=== PATIENT | male | born 1955 | race Caucasian/White ===

== ENCOUNTER 2017-05-18 11:25 | Inpatient (IN) | payer MEDICARE, BC, MEDICAID ==
--- NOTE | 2017-05-18 12:12 | ED Physician Chart ---
ED Chief Complaint/HPI - Patient Information Date Seen:: 05/18/17 Time Seen:: 12:00 Chief Complaint:: disruptive and verbally abusive behavior History of Present Illness:: [facility] for disruptive and verbally abusive behavior. Allergies:: Allergies Allergy/AdvReac Type Severity Reaction Status Date / Time penicillinase Allergy Verified 05/18/17 11:53 Penicillins Allergy Verified 05/18/17 11:53 Vitals:: Vital Signs - 8 hr 05/18/17 11:53 Temp 98.2 F HR 77 RR 16 BP 136/53 O2 Sat % 98 Historian:: Patient Review:: Transfer documents Reviewed ED Review of Systems - Review of Systems General/Constitutional: No fever, No chills Skin: No skin lesions Head: No headache Eyes: No loss of vision ENT: No earache Neck: No neck pain Cardio Vascular: No chest pain, No palpitations Pulmonary: No SOB GI: No nausea, No vomiting G/U: No dysuria, No hematuria Endocrine: No polyuria, No polydipsia Psychiatric: Prior psych history Hematopoietic: No bruising Allergic/Immuno: No urticaria Neurological: No syncope ED Past Medical History - Past Medical History Past Medical History: HTN, Asthma/COPD, Dyslipidemia, Other (schizoaffective disorder; hypothyroidism ) Family History: None Social History: Smoker Surgical History: other (tonsillectomy) Psychiatricy History: Other (schizoaffective disorder) Medication: Reviewed Family Medical History - Family Member Mother History Unknown: Yes ED Labs/Radiology/EKG Results - Lab Results Results: Laboratory Results - last 24 hr 05/18/17 05/18/17 12:00 12:00 WBC 4.3 L D RBC 4.03 L Hgb 12.9 Hct 37.9 L D MCV 94.2 MCH 31.9 H MCHC Differential 33.9 RDW 12.9 Plt Count 175 D MPV 7.5 Neutrophils % 62.4 Lymphocytes % 28.0 Monocytes % 7.9 Eosinophils % 1.1 Basophils % 0.6 Sodium 133 L Potassium 3.6 Chloride 98 Carbon Dioxide 32.0 H Anion Gap 6.6 L BUN 18 Creatinine 1.2 Est GFR ( Amer) > 60.0 Est GFR (Non-Af Amer) > 60.0 BUN/Creatinine Ratio 15.0 Glucose 76 Calcium 8.8 Total Bilirubin 0.3 AST 63 H ALT 35 Alkaline Phosphatase 48 Total Protein 6.9 Albumin 4.1 L Globulin 2.8 Albumin/Globulin Ratio 1.5 Triglycerides 190 H Cholesterol 207 H LDL Cholesterol Direct 137 HDL Cholesterol 53 Salicylates < 25.0 L Acetaminophen < 10.0 L Ethyl Alcohol < 10 - EKG Interpretations Rate & Rhythm: normal sinus rhythm with a rate of 63 [place]: normal ED Septic Shock - . Is Septic Shock (SBP<90, OR Lactate>4 mmol\L) present?: No - <6hrs of presentation: Vital Signs: Vital Signs - 8 hr 05/18/17 11:53 Temp 98.2 F HR 77 RR 16 BP 136/53 O2 Sat % 98 ED Reassessment (Disposition) - Reassessment Reassessment Condition:: Improved - Diagnosis Diagnosis:: Schizoaffective disorder with abusive behavior; leukopenia - Patient Disposition Admitted to:: [facility] Admitting Medical Physician:: Nino Ng Admitting Psych Physician:: Markus Rivera Condition at Disposition:: Stable ED Discharge Plan - Patient Disposition Instructions: Psychosis
[2017-05-18 12:18] LABS: % BASOPHILS 0.6 % (0.0-2.0); % EOSINOPHILS 1.1 % (0.0-5.0); % MONOCYTES 7.9 % (2.0-10.0); % NEUTROPHILS 62.4 % (40.0-80.0); HEMOGLOBIN 12.9 gm/dL (12-16); LYMPHOCYTE ABSOLUTE 1.2 Th/cmm (1.5-3.0); MEAN CELL VOLUME 94.2 fl (80-99); MEAN CORPUSCULAR HEMOGLOBIN 31.9 pg (26.0-30.0); MEAN CORPUSCULAR HGB CONC 33.9 pg (28.0-36.0); MEAN PLATELET VOLUME 7.5 fl; MONOCYTE ABSOLUTE 0.3 Th/cmm (0.3-1.0); NEUTROPHILE ABSOLUTE 2.8 Th/cmm (1.8-8.0); RED BLOOD COUNT 4.03 Mil/cmm (4.30-5.70); RED CELL DISTRIBUTION WIDTH 12.9 % (11.5-20.0)
[2017-05-18 12:19] LABS: HEMATOCRIT 37.9 % (41.0-60); PLATELET COUNT 175 Th/cmm (150-400); WHITE BLOOD COUNT 4.3 Th/cmm (4.8-10.8)
[2017-05-18 12:46] LABS: ACETAMINOPHEN < 10.0 ug/mL (10.0-30.0); ALB/GLOB RATIO 1.5 (1.0-1.8); ALBUMIN 4.1 gm/dL (4.2-5.5); ALKALINE PHOSPHATASE 48 U/L (34-104); ANION GAP 6.6 (7.0-16.0); BILIRUBIN,TOTAL 0.3 mg/dL (0.3-1.0); BUN - UREA NITROGEN 18 mg/dL (7-25); CALCIUM SERUM 8.8 mg/dL (8.6-10.3); CHLORIDE 98 mEq/L (98-107); CHOLESTEROL 207 mg/dL (<200); CREATININE - SERUM 1.2 mg/dL (0.7-1.3); GFR AFRICAN-AMERICAN > 60.0 ml/min (>90); GFR NON AFRICAN-AMERICAN > 60.0 ml/min; GLUCOSE 76 mg/dL (70-105); HDL -HIGH DENSITY LIPOPROTEIN 53 mg/dL (23-92); POTASSIUM SERUM 3.6 mEq/L (3.5-5.1); SALICYLATES (ASPIRIN) < 25.0 mg/L (30.0-100.0); SGOT 63 U/L (13-39); SGPT/ALT 35 U/L (7-52); SODIUM SERUM 133 mEq/L (136-145); TOTAL PROTEIN,SERUM 6.9 gm/dL (6.0-8.3); TRIGLYCERIDES 190 mg/dL (<150)
[2017-05-18 14:15] LABS: A1C % 6.2 % (4.0-6.0)
[2017-05-18 14:54] VITALS: BP 142/78
[2017-05-18] MEDS ORDERED: Magnesium Hydroxide (MOM) 30 mL UDC PO PRN (14:54)
[2017-05-19] MEDS ORDERED: LEVOTHYROXINE 200 MCG PO SCH (07:30)
[2017-05-19] MEDS: Maalox 30 mL Cup PO PRN (08:38)
[2017-05-19] MEDS: Benztropine 1 MG TAB PO SCH (08:39)
[2017-05-19] MEDS: Levothyroxine 0.1 Mg Tab PO SCH (08:39)
[2017-05-19] MEDS: Multivitamin Tab PO SCH (08:41)
--- NOTE | 2017-05-19 12:18 | History and Physical ---
History of Present Illness - HPI Chief Complaint: agressive behavior HPI: This is a 61 year old male who is a resident of [facility] admitted to the [facility] unit due to agressive and abusive behavior towards nursing staff. Vital Signs: Last Vital Signs Temp 98.4 F 05/18/17 16:36 Pulse 70 05/18/17 16:36 Resp 18 05/18/17 16:36 BP 123/72 05/18/17 16:36 Pulse Ox 99 05/18/17 16:36 Past Medical History Other History: HTN, Asthma/COPD, Dyslipidemia, schizoaffective disorder; hypothyroidism ) - Past Surgical History Past Surgical History: Tonsillectomy Family Medical History - Family Member Mother History Unknown: Yes Social History Smoke: <1 pack per day Alcohol: None Drugs: None Lives: Custodial - Medications Home Medications: Home Medication Medication Instructions Recorded Type Lorazepam [Ativan] 1 mg PO Q6H PRN #0 tab 10/01/14 Rx QUEtiapine Fumarate [SEROquel] 400 mg PO HS #0 tab 10/01/14 Rx Benztropine [Cogentin*] 1 mg PO DAILY 05/18/17 History Docusate Sodium [Colace] 200 mg PO BID 05/18/17 History Levothyroxine [Synthroid] 200 mcg PO QDAC 05/18/17 History Mylanta 30 ml PO Q4H PRN 05/18/17 History Naproxen [Naprosyn] 500 mg PO BID PRN 05/18/17 History QUEtiapine Fumarate [SEROquel] 100 mg PO DAILY 05/18/17 History clonazePAM [klonoPIN*] 1 mg PO BID 05/18/17 History - Allergies Allergies/Adverse Reactions: Allergies Allergy/AdvReac Type Severity Reaction Status Date / Time penicillinase Allergy Verified 05/18/17 11:53 Penicillins Allergy Verified 05/18/17 11:53 Review of Systems - Review of Systems Constitutional: Report: No Significant Eyes: Report: No Significant ENT: Report: No Significant Respiratory: Report: No Significant Cardiovascular: Report: No Significant Gastrointestinal: Report: No Significant Genitourinary: Report: No Significant Musculoskeletal: Report: No Significant Skin: Report: No Significant Neurological: Report: No Significant Physical Exam - Physical Exam HEENT: Report: Ears Nose Throat within normal limits Neck: Report: Within normal limits Cardiovascular Systems: Report: +s1/s2 noted Respiratory: Report: Breath Sounds are within normal limits Abdomen: Report: Non-tender to palpation Back: Report: Inspection of back is within normal limits. Extremities: Report: Non-tender to palpation. Neuro/Psych: Report: Mood affect is within normal limits - Assessment Assessment: Current Active Problems Problem Status Onset DISRUPTIVE AND ABUSIVE BEHAVIOUR Acute HTN Asthma/COPD Dyslipidemia schizoaffective disorder hypothyroidism S - Plan Plan: safety precautions continue current orders
--- NOTE | 2017-05-19 21:27 | Psychosocial Evaluation ---
DATE OF SERVICE: 05/18/2017 IDENTIFYING DATA: The patient is a 61-year-old male, resident of [facility]. Information obtained by directly interviewing the patient as well as reviewing the admission papers, and they are reliable for this inpatient hospitalization. The patient is admitted here on a voluntary basis in view of his acute agitation and disruptive behavior. CHIEF COMPLAINT: "I need to have my medications changed." HISTORY OF PRESENT ILLNESS: This is one of multiple psychiatric hospitalizations for this patient, who has been diagnosed to have schizoaffective disorder and is being followed up by Dr. Rivera on an outpatient basis. During the hospitalization, the patient has been getting easily agitated and is stating that he has been taking too much of medications that needs to be changed. The patient is getting easily upset. The patient is fixated on the Seroquel. PAST PSYCHIATRIC HISTORY: Has been hospitalized on multiple occasions. MEDICAL HISTORY: Physical examination is requested by Dr. Ng. SOCIAL HISTORY: The patient is a resident of the [facility]. SUBSTANCE ABUSE HISTORY: None. PHYSICAL OR SEXUAL ABUSE HISTORY: None. LEGAL PROBLEMS AT THIS TIME: None. MENTAL STATUS EXAMINATION: The patient is a 61-year-old, looking his stated age, cooperative. Eye contact is fair. Mood is noted to be irritable. Affect is constricted. The patient's insight and judgment are very much impaired. Impulse control seems to be limited. The patient is very paranoid and fixated on the medications. The patient is alert and awake. The patient's attention span and concentration are noted to be fair. The patient has paranoid delusions. DIAGNOSTIC IMPRESSION: 1. Schizoaffective disorder, psychotic. AXIS II: None. AXIS III: As per Dr. Ng. IMMEDIATE TREATMENT PLAN: The patient is going to be observed on inpatient unit, provided with supportive psychotherapy. The patient is going to be closely monitored. The patient is going to be discontinued off the Ativan because the patient is already on Klonopin. The patient is going to be continued on the Seroquel 100 mg in the morning and 400 mg at bedtime, and the patient is stating that the 400 mg of the Seroquel is too much for him, and he would like to bring it down to 300. The patient is stating that he is sleeping most of the time, and he would rather take a lower dose and function. The patient is also reporting that he is not having any side effects from the medication and he would rather discontinue the Cogentin. Plan to continue the patient with the current medication changes and follow the patient up. JOB# [id number]
[2017-05-20] MEDS: Benztropine 1 MG TAB PO SCH (08:02)
[2017-05-20] MEDS: Levothyroxine 0.1 Mg Tab PO SCH (08:02)
[2017-05-20] MEDS: Multivitamin Tab PO SCH (08:52)
[2017-05-20] MEDS: Maalox 30 mL Cup PO PRN (13:21)
--- NOTE | 2017-05-20 15:06 | Internal Medicine Prog Note ---
Internal Medicine Subjective - Subjective Patient seen and examined:: with staff, chart reviewed Patient is:: awake, verbal, interactive, ambulating, agitated Per staff patient has:: no adverse event, no episodes of fall, poor appetite, combative, noncompliant, tolerating meds, refusing care Internal Medicine Objective - Results Result Diagrams: 05/18/17 12:00 05/18/17 12:00 Recent Labs: Laboratory Last Values WBC 4.3 Th/cmm (4.8-10.8) L D 05/18/17 12:00 RBC 4.03 Mil/cmm (4.30-5.70) L 05/18/17 12:00 Hgb 12.9 gm/dL (12-16) 05/18/17 12:00 Hct 37.9 % (41.0-60) L D 05/18/17 12:00 MCV 94.2 fl (80-99) 05/18/17 12:00 MCH 31.9 pg (26.0-30.0) H 05/18/17 12:00 MCHC Differential 33.9 pg (28.0-36.0) 05/18/17 12:00 RDW 12.9 % (11.5-20.0) 05/18/17 12:00 Plt Count 175 Th/cmm (150-400) D 05/18/17 12:00 MPV 7.5 fl 05/18/17 12:00 Neutrophils % 62.4 % (40.0-80.0) 05/18/17 12:00 Lymphocytes % 28.0 % (20.0-50.0) 05/18/17 12:00 Monocytes % 7.9 % (2.0-10.0) 05/18/17 12:00 Eosinophils % 1.1 % (0.0-5.0) 05/18/17 12:00 Basophils % 0.6 % (0.0-2.0) 05/18/17 12:00 Sodium 133 mEq/L (136-145) L 05/18/17 12:00 Potassium 3.6 mEq/L (3.5-5.1) 05/18/17 12:00 Chloride 98 mEq/L (98-107) 05/18/17 12:00 Carbon Dioxide 32.0 mEq/L (21.0-31.0) H 05/18/17 12:00 Anion Gap 6.6 (7.0-16.0) L 05/18/17 12:00 BUN 18 mg/dL (7-25) 05/18/17 12:00 Creatinine 1.2 mg/dL (0.7-1.3) 05/18/17 12:00 Est GFR ( Amer) > 60.0 ml/min (>90) 05/18/17 12:00 Est GFR (Non-Af Amer) > 60.0 ml/min 05/18/17 12:00 BUN/Creatinine Ratio 15.0 05/18/17 12:00 Glucose 76 mg/dL (70-105) 05/18/17 12:00 Hemoglobin A1c % 6.2 % (4.0-6.0) H 05/18/17 12:00 Calcium 8.8 mg/dL (8.6-10.3) 05/18/17 12:00 Total Bilirubin 0.3 mg/dL (0.3-1.0) 05/18/17 12:00 AST 63 U/L (13-39) H 05/18/17 12:00 ALT 35 U/L (7-52) 05/18/17 12:00 Alkaline Phosphatase 48 U/L (34-104) 05/18/17 12:00 Total Protein 6.9 gm/dL (6.0-8.3) 05/18/17 12:00 Albumin 4.1 gm/dL (4.2-5.5) L 05/18/17 12:00 Globulin 2.8 gm/dL 05/18/17 12:00 Albumin/Globulin Ratio 1.5 (1.0-1.8) 05/18/17 12:00 Triglycerides 190 mg/dL (<150) H 05/18/17 12:00 Cholesterol 207 mg/dL (<200) H 05/18/17 12:00 LDL Cholesterol Direct 137 mg/dL (75-193) 05/18/17 12:00 HDL Cholesterol 53 mg/dL (23-92) 05/18/17 12:00 TSH > 100.00 uIU/ml (0.34-5.60) H 05/18/17 12:00 Salicylates < 25.0 mg/L (30.0-100.0) L 05/18/17 12:00 Acetaminophen < 10.0 ug/mL (10.0-30.0) L 05/18/17 12:00 Ethyl Alcohol < 10 mg/dL (0-10) 05/18/17 12:00 RPR NONREACTIVE (NONREACTIVE) 05/18/17 12:00 - Physical Exam Vitals and I&O: Vital Signs Temp 98.2 F 05/20/17 06:16 Pulse 67 05/20/17 06:16 Resp 20 05/20/17 06:16 BP 116/63 05/20/17 06:16 Pulse Ox 98 05/20/17 06:16 Intake & Output 05/19/17 05/20/17 05/20/17 18:59 06:59 18:59 Intake Total 1200 720 Balance 1200 720 Intake: Oral 1200 720 Other: # Voids 1 # Bowel Movements 1 Active Medications: Current Medications Acetaminophen (Tylenol) 650 mg PO Q4HR PRN PRN Reason: Mild Pain / Temp above 100 Stop: 07/17/17 14:53 Al Hydrox/Mg Hydrox/Simethicone (Maalox) 30 ml PO Q4HR PRN PRN Reason: GI DISTRESS Stop: 07/17/17 14:53 Last Admin: 05/20/17 13:21 Dose: 30 ml Benztropine Mesylate (Cogentin) 1 mg PO DAILY [facility] Stop: 07/18/17 08:59 Last Admin: 05/20/17 08:02 Dose: Not Given Clonazepam (Klonopin) 1 mg PO BID STEFFANIE PRN Reason: Protocol Stop: 07/17/17 16:59 Last Admin: 05/20/17 08:51 Dose: 1 mg Docusate Sodium (Colace) 250 mg PO BID [facility] Stop: 07/17/17 16:59 Last Admin: 05/20/17 08:51 Dose: 250 mg Levothyroxine Sodium (Synthroid) 0.2 mg PO DAILY [facility] Stop: 07/18/17 08:59 Last Admin: 05/20/17 08:02 Dose: Not Given Magnesium Hydroxide (Milk Of Magnesia) 30 ml PO HS PRN PRN Reason: Constipation Multivitamins/Vitamin C (Theragran) 1 tab PO DAILY [facility] Stop: 07/18/17 08:59 Last Admin: 05/20/17 08:52 Dose: Not Given Naproxen (Naprosyn) 500 mg PO BID PRN PRN Reason: PAIN Stop: 07/17/17 14:57 Quetiapine Fumarate (Seroquel) 100 mg PO DAILY STEFFANIE PRN Reason: Protocol Stop: 07/18/17 08:59 Last Admin: 05/20/17 08:51 Dose: 100 mg Quetiapine Fumarate (Seroquel) 300 mg PO HS STEFFANIE PRN Reason: Protocol Stop: 07/18/17 18:59 Last Admin: 05/19/17 19:36 Dose: Not Given Zolpidem Tartrate (Ambien) 5 mg PO HS PRN PRN Reason: Insomnia Stop: 07/17/17 14:53 Last Admin: 05/19/17 20:22 Dose: 5 mg General: congested HEENT: NC/AT, PERRLA, EOMI Neck: Supple, No JVD, No LAD Lungs: CTAB Cardiovascular: RRR, Normal S1, Normal S2 Abdomen: soft, globular, non-distended Extremities: edema - Procedures Procedures: Procedures Procedure Code Date EMERGENCY DEPT VISIT 33406 06/27/11 INDIVID PSYCHOTHERAP NEC 94.39 10/26/05 OTHER GROUP THERAPY 94.44 09/24/14 RECREATIONAL THERAPY 93.81 03/06/12 Internal Medicine Assmt/Plan - Assessment Assessment: HTN Asthma/COPD Dyslipidemia schizoaffective disorder hypothyroidism S - Plan Plan: safety precautions continue current orders - Plan Plan: labs noed tsh noted bayron vargas
--- NOTE | 2017-05-20 15:57 | Progress Notes ---
DATE: 05/20/2017 SUBJECTIVE: Staff was spoken to. The patient is interviewed. Mood is noted to be irritable. Affect is constricted. Insight and judgment are to be still impaired. The patient has been fixated on the Seroquel. The patient is stating that the Seroquel is too much. He would like to continue the 100 mg in the morning and he has been fixated on the medication at night time. No side effects to medications are noted. Insight and judgment are to be still impaired. ASSESSMENT: The patient is still psychotic and impulsive. PLAN: To continue the patient with the current medications and followup. JOB# [id number]
[2017-05-21] MEDS: Multivitamin Tab PO SCH (08:51)
[2017-05-21] MEDS: Levothyroxine 0.1 Mg Tab PO SCH (08:51)
--- NOTE | 2017-05-21 15:03 | Internal Medicine Prog Note ---
Internal Medicine Subjective - Subjective Patient seen and examined:: with staff, chart reviewed Patient is:: awake, verbal, interactive, ambulating, agitated Per staff patient has:: no adverse event, no episodes of fall, poor appetite, combative, noncompliant, tolerating meds, refusing care Internal Medicine Objective - Results Result Diagrams: 05/18/17 12:00 05/18/17 12:00 Recent Labs: Laboratory Last Values WBC 4.3 Th/cmm (4.8-10.8) L D 05/18/17 12:00 RBC 4.03 Mil/cmm (4.30-5.70) L 05/18/17 12:00 Hgb 12.9 gm/dL (12-16) 05/18/17 12:00 Hct 37.9 % (41.0-60) L D 05/18/17 12:00 MCV 94.2 fl (80-99) 05/18/17 12:00 MCH 31.9 pg (26.0-30.0) H 05/18/17 12:00 MCHC Differential 33.9 pg (28.0-36.0) 05/18/17 12:00 RDW 12.9 % (11.5-20.0) 05/18/17 12:00 Plt Count 175 Th/cmm (150-400) D 05/18/17 12:00 MPV 7.5 fl 05/18/17 12:00 Neutrophils % 62.4 % (40.0-80.0) 05/18/17 12:00 Lymphocytes % 28.0 % (20.0-50.0) 05/18/17 12:00 Monocytes % 7.9 % (2.0-10.0) 05/18/17 12:00 Eosinophils % 1.1 % (0.0-5.0) 05/18/17 12:00 Basophils % 0.6 % (0.0-2.0) 05/18/17 12:00 Sodium 133 mEq/L (136-145) L 05/18/17 12:00 Potassium 3.6 mEq/L (3.5-5.1) 05/18/17 12:00 Chloride 98 mEq/L (98-107) 05/18/17 12:00 Carbon Dioxide 32.0 mEq/L (21.0-31.0) H 05/18/17 12:00 Anion Gap 6.6 (7.0-16.0) L 05/18/17 12:00 BUN 18 mg/dL (7-25) 05/18/17 12:00 Creatinine 1.2 mg/dL (0.7-1.3) 05/18/17 12:00 Est GFR ( Amer) > 60.0 ml/min (>90) 05/18/17 12:00 Est GFR (Non-Af Amer) > 60.0 ml/min 05/18/17 12:00 BUN/Creatinine Ratio 15.0 05/18/17 12:00 Glucose 76 mg/dL (70-105) 05/18/17 12:00 Hemoglobin A1c % 6.2 % (4.0-6.0) H 05/18/17 12:00 Calcium 8.8 mg/dL (8.6-10.3) 05/18/17 12:00 Total Bilirubin 0.3 mg/dL (0.3-1.0) 05/18/17 12:00 AST 63 U/L (13-39) H 05/18/17 12:00 ALT 35 U/L (7-52) 05/18/17 12:00 Alkaline Phosphatase 48 U/L (34-104) 05/18/17 12:00 Total Protein 6.9 gm/dL (6.0-8.3) 05/18/17 12:00 Albumin 4.1 gm/dL (4.2-5.5) L 05/18/17 12:00 Globulin 2.8 gm/dL 05/18/17 12:00 Albumin/Globulin Ratio 1.5 (1.0-1.8) 05/18/17 12:00 Triglycerides 190 mg/dL (<150) H 05/18/17 12:00 Cholesterol 207 mg/dL (<200) H 05/18/17 12:00 LDL Cholesterol Direct 137 mg/dL (75-193) 05/18/17 12:00 HDL Cholesterol 53 mg/dL (23-92) 05/18/17 12:00 TSH > 100.00 uIU/ml (0.34-5.60) H 05/18/17 12:00 Salicylates < 25.0 mg/L (30.0-100.0) L 05/18/17 12:00 Acetaminophen < 10.0 ug/mL (10.0-30.0) L 05/18/17 12:00 Ethyl Alcohol < 10 mg/dL (0-10) 05/18/17 12:00 RPR NONREACTIVE (NONREACTIVE) 05/18/17 12:00 - Physical Exam Vitals and I&O: Vital Signs Temp 98.6 F 05/20/17 20:00 Pulse 78 05/20/17 20:00 Resp 20 05/20/17 20:00 BP 119/66 05/20/17 20:00 Pulse Ox 78 05/20/17 20:00 Intake & Output 05/20/17 05/21/17 05/21/17 18:59 06:59 18:59 Intake Total 1000 Balance 1000 Intake: Oral 1000 Other: # Voids 13 # Bowel Movements 2 Stool Characteristics Soft Soft Active Medications: Current Medications Acetaminophen (Tylenol) 650 mg PO Q4HR PRN PRN Reason: Mild Pain / Temp above 100 Stop: 07/17/17 14:53 Al Hydrox/Mg Hydrox/Simethicone (Maalox) 30 ml PO Q4HR PRN PRN Reason: GI DISTRESS Stop: 07/17/17 14:53 Last Admin: 05/20/17 13:21 Dose: 30 ml Clonazepam (Klonopin) 1 mg PO BID STEFFANIE PRN Reason: Protocol Stop: 07/17/17 16:59 Last Admin: 05/21/17 08:51 Dose: 1 mg Docusate Sodium (Colace) 250 mg PO BID STEFFANIE Stop: 07/17/17 16:59 Last Admin: 05/21/17 08:51 Dose: 250 mg Levothyroxine Sodium (Synthroid) 0.2 mg PO DAILY STEFFANIE Stop: 07/18/17 08:59 Last Admin: 05/21/17 08:51 Dose: Not Given Magnesium Hydroxide (Milk Of Magnesia) 30 ml PO HS PRN PRN Reason: Constipation Multivitamins/Vitamin C (Theragran) 1 tab PO DAILY STEFFANIE Stop: 07/18/17 08:59 Last Admin: 05/21/17 08:51 Dose: 1 tab Naproxen (Naprosyn) 500 mg PO BID PRN PRN Reason: PAIN Stop: 07/17/17 14:57 Quetiapine Fumarate (Seroquel) 100 mg PO DAILY STEFFANIE PRN Reason: Protocol Stop: 07/18/17 08:59 Last Admin: 05/21/17 08:51 Dose: 100 mg Quetiapine Fumarate (Seroquel) 400 mg PO HS STEFFANIE PRN Reason: Protocol Stop: 07/18/17 18:59 Last Admin: 05/20/17 21:07 Dose: 400 mg Zolpidem Tartrate (Ambien) 5 mg PO HS PRN PRN Reason: Insomnia Stop: 07/17/17 14:53 Last Admin: 05/19/17 20:22 Dose: 5 mg General: congested HEENT: NC/AT, PERRLA, EOMI Neck: Supple, No JVD, No LAD Lungs: CTAB Cardiovascular: RRR, Normal S1, Normal S2 Abdomen: soft, globular, non-distended Extremities: edema - Procedures Procedures: Procedures Procedure Code Date EMERGENCY DEPT VISIT 23249 06/27/11 INDIVID PSYCHOTHERAP NEC 94.39 10/26/05 OTHER GROUP THERAPY 94.44 09/24/14 RECREATIONAL THERAPY 93.81 03/06/12 Internal Medicine Assmt/Plan - Assessment Assessment: HTN Asthma/COPD Dyslipidemia schizoaffective disorder hypothyroidism S - Plan Plan: safety precautions continue current orders - Plan Plan: labs noed tsh noted dw rn
--- NOTE | 2017-05-21 22:49 | Progress Notes ---
DATE: 05/21/2017 SUBJECTIVE: Staff was spoken to. The patient is interviewed. Mood is noted to be irritable. Affect is constricted. The patient is very argumentative. The patient wants both Klonopin and Ativan. The patient's coping skills are noted to be extremely poor. The patient has been complaining of also insomnia. The patient's Seroquel has been changed to 100 mg in the morning and 400 mg at bedtime. ASSESSMENT: The patient is very agitated and is not ready to be discharged to a lower level of care yet. ASSESSMENT: The patient is still psychotic. PLAN: To continue current medications and follow through. JOB# [id number]
[2017-05-22] MEDS: Levothyroxine 0.1 Mg Tab PO SCH ×2 (08:39→10:32)
[2017-05-22] MEDS: Multivitamin Tab PO SCH ×2 (08:40→10:32)
--- NOTE | 2017-05-22 13:23 | Progress Notes ---
DATE: 05/22/2017 SUBJECTIVE: Staff was spoken to. The patient is interviewed. Mood is noted to be irritable. The patient is very argumentative. The patient is stating that even with taking the Seroquel and Klonopin, he was not able to sleep and he woke up groggy. Coping skills are noted to be very poor. The patient has been given the option of taking the Ativan instead of the Klonopin, but the patient is stating that note he wants to have both Ativan and Klonopin. The patient is not able to understand the rationale. ASSESSMENT: The patient is still psychotic and impulsive. PLAN: To continue the patient with the current medications and followup. [facility]# [id number]
--- NOTE | 2017-05-22 15:03 | Internal Medicine Prog Note ---
Internal Medicine Subjective - Subjective Patient seen and examined:: with staff, chart reviewed Patient is:: awake, verbal, interactive, ambulating, agitated Per staff patient has:: no adverse event, no episodes of fall, poor appetite, combative, noncompliant, tolerating meds, refusing care Internal Medicine Objective - Results Result Diagrams: 05/18/17 12:00 05/18/17 12:00 Recent Labs: Laboratory Last Values WBC 4.3 Th/cmm (4.8-10.8) L D 05/18/17 12:00 RBC 4.03 Mil/cmm (4.30-5.70) L 05/18/17 12:00 Hgb 12.9 gm/dL (12-16) 05/18/17 12:00 Hct 37.9 % (41.0-60) L D 05/18/17 12:00 MCV 94.2 fl (80-99) 05/18/17 12:00 MCH 31.9 pg (26.0-30.0) H 05/18/17 12:00 MCHC Differential 33.9 pg (28.0-36.0) 05/18/17 12:00 RDW 12.9 % (11.5-20.0) 05/18/17 12:00 Plt Count 175 Th/cmm (150-400) D 05/18/17 12:00 MPV 7.5 fl 05/18/17 12:00 Neutrophils % 62.4 % (40.0-80.0) 05/18/17 12:00 Lymphocytes % 28.0 % (20.0-50.0) 05/18/17 12:00 Monocytes % 7.9 % (2.0-10.0) 05/18/17 12:00 Eosinophils % 1.1 % (0.0-5.0) 05/18/17 12:00 Basophils % 0.6 % (0.0-2.0) 05/18/17 12:00 Sodium 133 mEq/L (136-145) L 05/18/17 12:00 Potassium 3.6 mEq/L (3.5-5.1) 05/18/17 12:00 Chloride 98 mEq/L (98-107) 05/18/17 12:00 Carbon Dioxide 32.0 mEq/L (21.0-31.0) H 05/18/17 12:00 Anion Gap 6.6 (7.0-16.0) L 05/18/17 12:00 BUN 18 mg/dL (7-25) 05/18/17 12:00 Creatinine 1.2 mg/dL (0.7-1.3) 05/18/17 12:00 Est GFR ( Amer) > 60.0 ml/min (>90) 05/18/17 12:00 Est GFR (Non-Af Amer) > 60.0 ml/min 05/18/17 12:00 BUN/Creatinine Ratio 15.0 05/18/17 12:00 Glucose 76 mg/dL (70-105) 05/18/17 12:00 Hemoglobin A1c % 6.2 % (4.0-6.0) H 05/18/17 12:00 Calcium 8.8 mg/dL (8.6-10.3) 05/18/17 12:00 Total Bilirubin 0.3 mg/dL (0.3-1.0) 05/18/17 12:00 AST 63 U/L (13-39) H 05/18/17 12:00 ALT 35 U/L (7-52) 05/18/17 12:00 Alkaline Phosphatase 48 U/L (34-104) 05/18/17 12:00 Total Protein 6.9 gm/dL (6.0-8.3) 05/18/17 12:00 Albumin 4.1 gm/dL (4.2-5.5) L 05/18/17 12:00 Globulin 2.8 gm/dL 05/18/17 12:00 Albumin/Globulin Ratio 1.5 (1.0-1.8) 05/18/17 12:00 Triglycerides 190 mg/dL (<150) H 05/18/17 12:00 Cholesterol 207 mg/dL (<200) H 05/18/17 12:00 LDL Cholesterol Direct 137 mg/dL (75-193) 05/18/17 12:00 HDL Cholesterol 53 mg/dL (23-92) 05/18/17 12:00 TSH > 100.00 uIU/ml (0.34-5.60) H 05/18/17 12:00 Salicylates < 25.0 mg/L (30.0-100.0) L 05/18/17 12:00 Acetaminophen < 10.0 ug/mL (10.0-30.0) L 05/18/17 12:00 Ethyl Alcohol < 10 mg/dL (0-10) 05/18/17 12:00 RPR NONREACTIVE (NONREACTIVE) 05/18/17 12:00 - Physical Exam Vitals and I&O: Vital Signs Temp 97.7 F 05/22/17 14:41 Pulse 78 05/22/17 14:41 Resp 20 05/22/17 14:41 BP 108/71 05/22/17 14:41 Pulse Ox 98 05/22/17 14:41 Intake & Output 05/21/17 05/22/17 05/22/17 18:59 06:59 18:59 Other: Stool Characteristics Soft Soft Soft Formed Formed Active Medications: Current Medications Acetaminophen (Tylenol) 650 mg PO Q4HR PRN PRN Reason: Mild Pain / Temp above 100 Stop: 07/17/17 14:53 Al Hydrox/Mg Hydrox/Simethicone (Maalox) 30 ml PO Q4HR PRN PRN Reason: GI DISTRESS Stop: 07/17/17 14:53 Last Admin: 05/20/17 13:21 Dose: 30 ml Clonazepam (Klonopin) 1 mg PO BID STEFFANIE PRN Reason: Protocol Stop: 07/17/17 16:59 Last Admin: 05/22/17 08:39 Dose: 1 mg Docusate Sodium (Colace) 250 mg PO BID STEFFANIE Stop: 07/17/17 16:59 Last Admin: 05/22/17 08:40 Dose: 250 mg Levothyroxine Sodium (Synthroid) 0.2 mg PO DAILY STEFFANIE Stop: 07/18/17 08:59 Last Admin: 05/22/17 10:32 Dose: Not Given Magnesium Hydroxide (Milk Of Magnesia) 30 ml PO HS PRN PRN Reason: Constipation Multivitamins/Vitamin C (Theragran) 1 tab PO DAILY STEFFANIE Stop: 07/18/17 08:59 Last Admin: 05/22/17 10:32 Dose: Not Given Naproxen (Naprosyn) 500 mg PO BID PRN PRN Reason: PAIN Stop: 07/17/17 14:57 Quetiapine Fumarate (Seroquel) 100 mg PO DAILY STEFFANIE PRN Reason: Protocol Stop: 07/18/17 08:59 Last Admin: 05/22/17 08:40 Dose: 100 mg Quetiapine Fumarate (Seroquel) 400 mg PO HS STEFFANIE PRN Reason: Protocol Stop: 07/18/17 18:59 Last Admin: 05/21/17 20:48 Dose: 400 mg Zolpidem Tartrate (Ambien) 5 mg PO HS PRN PRN Reason: Insomnia Stop: 07/17/17 14:53 Last Admin: 05/19/17 20:22 Dose: 5 mg General: congested HEENT: NC/AT, PERRLA, EOMI Neck: Supple, No JVD, No LAD Lungs: CTAB Cardiovascular: RRR, Normal S1, Normal S2 Abdomen: soft, globular, non-distended Extremities: edema - Procedures Procedures: Procedures Procedure Code Date EMERGENCY DEPT VISIT 76777 06/27/11 INDIVID PSYCHOTHERAP NEC 94.39 10/26/05 OTHER GROUP THERAPY 94.44 09/24/14 RECREATIONAL THERAPY 93.81 03/06/12 Internal Medicine Assmt/Plan - Assessment Assessment: HTN Asthma/COPD Dyslipidemia schizoaffective disorder hypothyroidism S - Plan Plan: safety precautions continue current orders - Plan Plan: labs noed tsh noted dw rn
[2017-05-23] MEDS: Multivitamin Tab PO SCH (09:25)
[2017-05-23] MEDS: Levothyroxine 0.1 Mg Tab PO SCH (09:28)
[2017-05-23] MEDS: Maalox 30 mL Cup PO PRN (11:04)
--- NOTE | 2017-05-23 11:08 | Internal Medicine Prog Note ---
Internal Medicine Subjective - Subjective Service Date: 05/23/17 Patient is:: awake, verbal, interactive, ambulating, agitated Per staff patient has:: no adverse event, no episodes of fall, poor appetite, combative, noncompliant, tolerating meds, refusing care Internal Medicine Objective - Results Result Diagrams: 05/18/17 12:00 05/18/17 12:00 Recent Labs: Laboratory Last Values WBC 4.3 Th/cmm (4.8-10.8) L D 05/18/17 12:00 RBC 4.03 Mil/cmm (4.30-5.70) L 05/18/17 12:00 Hgb 12.9 gm/dL (12-16) 05/18/17 12:00 Hct 37.9 % (41.0-60) L D 05/18/17 12:00 MCV 94.2 fl (80-99) 05/18/17 12:00 MCH 31.9 pg (26.0-30.0) H 05/18/17 12:00 MCHC Differential 33.9 pg (28.0-36.0) 05/18/17 12:00 RDW 12.9 % (11.5-20.0) 05/18/17 12:00 Plt Count 175 Th/cmm (150-400) D 05/18/17 12:00 MPV 7.5 fl 05/18/17 12:00 Neutrophils % 62.4 % (40.0-80.0) 05/18/17 12:00 Lymphocytes % 28.0 % (20.0-50.0) 05/18/17 12:00 Monocytes % 7.9 % (2.0-10.0) 05/18/17 12:00 Eosinophils % 1.1 % (0.0-5.0) 05/18/17 12:00 Basophils % 0.6 % (0.0-2.0) 05/18/17 12:00 Sodium 133 mEq/L (136-145) L 05/18/17 12:00 Potassium 3.6 mEq/L (3.5-5.1) 05/18/17 12:00 Chloride 98 mEq/L (98-107) 05/18/17 12:00 Carbon Dioxide 32.0 mEq/L (21.0-31.0) H 05/18/17 12:00 Anion Gap 6.6 (7.0-16.0) L 05/18/17 12:00 BUN 18 mg/dL (7-25) 05/18/17 12:00 Creatinine 1.2 mg/dL (0.7-1.3) 05/18/17 12:00 Est GFR ( Amer) > 60.0 ml/min (>90) 05/18/17 12:00 Est GFR (Non-Af Amer) > 60.0 ml/min 05/18/17 12:00 BUN/Creatinine Ratio 15.0 05/18/17 12:00 Glucose 76 mg/dL (70-105) 05/18/17 12:00 Hemoglobin A1c % 6.2 % (4.0-6.0) H 05/18/17 12:00 Calcium 8.8 mg/dL (8.6-10.3) 05/18/17 12:00 Total Bilirubin 0.3 mg/dL (0.3-1.0) 05/18/17 12:00 AST 63 U/L (13-39) H 05/18/17 12:00 ALT 35 U/L (7-52) 05/18/17 12:00 Alkaline Phosphatase 48 U/L (34-104) 05/18/17 12:00 Total Protein 6.9 gm/dL (6.0-8.3) 05/18/17 12:00 Albumin 4.1 gm/dL (4.2-5.5) L 05/18/17 12:00 Globulin 2.8 gm/dL 05/18/17 12:00 Albumin/Globulin Ratio 1.5 (1.0-1.8) 05/18/17 12:00 Triglycerides 190 mg/dL (<150) H 05/18/17 12:00 Cholesterol 207 mg/dL (<200) H 05/18/17 12:00 LDL Cholesterol Direct 137 mg/dL (75-193) 05/18/17 12:00 HDL Cholesterol 53 mg/dL (23-92) 05/18/17 12:00 TSH > 100.00 uIU/ml (0.34-5.60) H 05/18/17 12:00 Salicylates < 25.0 mg/L (30.0-100.0) L 05/18/17 12:00 Acetaminophen < 10.0 ug/mL (10.0-30.0) L 05/18/17 12:00 Ethyl Alcohol < 10 mg/dL (0-10) 05/18/17 12:00 RPR NONREACTIVE (NONREACTIVE) 05/18/17 12:00 - Physical Exam Vitals and I&O: Vital Signs Temp 98.4 F 05/23/17 06:23 Pulse 61 05/23/17 06:23 Resp 18 05/23/17 06:23 BP 132/75 05/23/17 06:23 Pulse Ox 98 05/23/17 06:23 Intake & Output 05/22/17 05/23/17 05/23/17 18:59 06:59 18:59 Other: Stool Characteristics Soft Soft Formed Formed Active Medications: Current Medications Acetaminophen (Tylenol) 650 mg PO Q4HR PRN PRN Reason: Mild Pain / Temp above 100 Stop: 07/17/17 14:53 Al Hydrox/Mg Hydrox/Simethicone (Maalox) 30 ml PO Q4HR PRN PRN Reason: GI DISTRESS Stop: 07/17/17 14:53 Last Admin: 05/23/17 11:04 Dose: 30 ml Clonazepam (Klonopin) 1 mg PO BID STEFFANIE PRN Reason: Protocol Stop: 07/17/17 16:59 Last Admin: 05/23/17 09:25 Dose: 1 mg Docusate Sodium (Colace) 250 mg PO BID STEFFANIE Stop: 07/17/17 16:59 Last Admin: 05/23/17 09:25 Dose: 250 mg Levothyroxine Sodium (Synthroid) 0.2 mg PO DAILY STEFFANIE Stop: 07/18/17 08:59 Last Admin: 05/23/17 09:28 Dose: Not Given Magnesium Hydroxide (Milk Of Magnesia) 30 ml PO HS PRN PRN Reason: Constipation Multivitamins/Vitamin C (Theragran) 1 tab PO DAILY STEFFANIE Stop: 07/18/17 08:59 Last Admin: 05/23/17 09:25 Dose: 1 tab Naproxen (Naprosyn) 500 mg PO BID PRN PRN Reason: PAIN Stop: 07/17/17 14:57 Quetiapine Fumarate (Seroquel) 100 mg PO DAILY STEFFANIE PRN Reason: Protocol Stop: 07/18/17 08:59 Last Admin: 05/23/17 09:25 Dose: 100 mg Quetiapine Fumarate (Seroquel) 400 mg PO HS STEFFANIE PRN Reason: Protocol Stop: 07/18/17 18:59 Last Admin: 05/22/17 20:18 Dose: Not Given Zolpidem Tartrate (Ambien) 5 mg PO HS PRN PRN Reason: Insomnia Stop: 07/17/17 14:53 Last Admin: 05/22/17 20:17 Dose: 5 mg General: congested HEENT: NC/AT, PERRLA, EOMI Neck: Supple, No JVD, No LAD Lungs: CTAB Cardiovascular: RRR, Normal S1, Normal S2 Abdomen: soft, globular, non-distended Extremities: edema - Procedures Procedures: Procedures Procedure Code Date EMERGENCY DEPT VISIT 36043 06/27/11 INDIVID PSYCHOTHERAP NEC 94.39 10/26/05 OTHER GROUP THERAPY 94.44 09/24/14 RECREATIONAL THERAPY 93.81 03/06/12 Internal Medicine Assmt/Plan - Assessment Assessment: Current Active Problems Problem Status Onset DISRUPTIVE AND ABUSIVE BEHAVIOUR Acute HTN Asthma/COPD Dyslipidemia schizoaffective disorder hypothyroidism S - Plan Plan: safety precautions continue current orders
--- NOTE | 2017-05-23 13:08 | Progress Notes ---
DATE: 05/23/2017 SUBJECTIVE: Staff was spoken to. The patient is interviewed. Mood is noted to be irritable. Affect is constricted. Insight and judgment are noted to be limited. No side effects to the medications are noted. The patient has been having difficult time to cope with the stress. The patient is screaming and yelling on the dose of the Ativan and Klonopin. He wants both. The patient is currently on Seroquel and is able to tolerate the medication. ASSESSMENT: The patient is still psychotic. PLAN: To continue the patient with the supportive therapy and encouraged the patient to verbalize the concerns rather than to act out. JOB# [id number]
[2017-05-23] MEDS ORDERED: Haloperidol Lactate 5 mg/mL 1mL Vial IM ONE (21:13)
[2017-05-23] MEDS ORDERED: Haloperidol Lactate 5 mg/mL 1mL Vial ONE (21:16)
[2017-05-24] MEDS: Levothyroxine 0.1 Mg Tab PO SCH (08:22)
[2017-05-24] MEDS: Multivitamin Tab PO SCH (08:22)
--- NOTE | 2017-05-24 10:57 | Internal Medicine Prog Note ---
Internal Medicine Subjective - Subjective Service Date: 05/24/17 Patient is:: awake, verbal, interactive, ambulating, agitated Per staff patient has:: no adverse event, no episodes of fall, poor appetite, combative, noncompliant, tolerating meds, refusing care Internal Medicine Objective - Results Result Diagrams: 05/18/17 12:00 05/18/17 12:00 Recent Labs: Laboratory Last Values WBC 4.3 Th/cmm (4.8-10.8) L D 05/18/17 12:00 RBC 4.03 Mil/cmm (4.30-5.70) L 05/18/17 12:00 Hgb 12.9 gm/dL (12-16) 05/18/17 12:00 Hct 37.9 % (41.0-60) L D 05/18/17 12:00 MCV 94.2 fl (80-99) 05/18/17 12:00 MCH 31.9 pg (26.0-30.0) H 05/18/17 12:00 MCHC Differential 33.9 pg (28.0-36.0) 05/18/17 12:00 RDW 12.9 % (11.5-20.0) 05/18/17 12:00 Plt Count 175 Th/cmm (150-400) D 05/18/17 12:00 MPV 7.5 fl 05/18/17 12:00 Neutrophils % 62.4 % (40.0-80.0) 05/18/17 12:00 Lymphocytes % 28.0 % (20.0-50.0) 05/18/17 12:00 Monocytes % 7.9 % (2.0-10.0) 05/18/17 12:00 Eosinophils % 1.1 % (0.0-5.0) 05/18/17 12:00 Basophils % 0.6 % (0.0-2.0) 05/18/17 12:00 Sodium 133 mEq/L (136-145) L 05/18/17 12:00 Potassium 3.6 mEq/L (3.5-5.1) 05/18/17 12:00 Chloride 98 mEq/L (98-107) 05/18/17 12:00 Carbon Dioxide 32.0 mEq/L (21.0-31.0) H 05/18/17 12:00 Anion Gap 6.6 (7.0-16.0) L 05/18/17 12:00 BUN 18 mg/dL (7-25) 05/18/17 12:00 Creatinine 1.2 mg/dL (0.7-1.3) 05/18/17 12:00 Est GFR ( Amer) > 60.0 ml/min (>90) 05/18/17 12:00 Est GFR (Non-Af Amer) > 60.0 ml/min 05/18/17 12:00 BUN/Creatinine Ratio 15.0 05/18/17 12:00 Glucose 76 mg/dL (70-105) 05/18/17 12:00 Hemoglobin A1c % 6.2 % (4.0-6.0) H 05/18/17 12:00 Calcium 8.8 mg/dL (8.6-10.3) 05/18/17 12:00 Total Bilirubin 0.3 mg/dL (0.3-1.0) 05/18/17 12:00 AST 63 U/L (13-39) H 05/18/17 12:00 ALT 35 U/L (7-52) 05/18/17 12:00 Alkaline Phosphatase 48 U/L (34-104) 05/18/17 12:00 Total Protein 6.9 gm/dL (6.0-8.3) 05/18/17 12:00 Albumin 4.1 gm/dL (4.2-5.5) L 05/18/17 12:00 Globulin 2.8 gm/dL 05/18/17 12:00 Albumin/Globulin Ratio 1.5 (1.0-1.8) 05/18/17 12:00 Triglycerides 190 mg/dL (<150) H 05/18/17 12:00 Cholesterol 207 mg/dL (<200) H 05/18/17 12:00 LDL Cholesterol Direct 137 mg/dL (75-193) 05/18/17 12:00 HDL Cholesterol 53 mg/dL (23-92) 05/18/17 12:00 TSH > 100.00 uIU/ml (0.34-5.60) H 05/18/17 12:00 Salicylates < 25.0 mg/L (30.0-100.0) L 05/18/17 12:00 Acetaminophen < 10.0 ug/mL (10.0-30.0) L 05/18/17 12:00 Ethyl Alcohol < 10 mg/dL (0-10) 05/18/17 12:00 RPR NONREACTIVE (NONREACTIVE) 05/18/17 12:00 - Physical Exam Vitals and I&O: Vital Signs Temp 98.0 F 05/23/17 22:25 Pulse 73 05/23/17 22:25 Resp 20 05/23/17 22:25 BP 104/52 05/23/17 22:25 Pulse Ox 95 05/23/17 20:00 Intake & Output 05/23/17 05/24/17 05/24/17 18:59 06:59 18:59 Intake Total 200 Balance 200 Intake: Oral 200 Other: # Voids 4 # Bowel Movements 0 Stool Characteristics Soft Soft Formed Formed Active Medications: Current Medications Acetaminophen (Tylenol) 650 mg PO Q4HR PRN PRN Reason: Mild Pain / Temp above 100 Stop: 07/17/17 14:53 Al Hydrox/Mg Hydrox/Simethicone (Maalox) 30 ml PO Q4HR PRN PRN Reason: GI DISTRESS Stop: 07/17/17 14:53 Last Admin: 05/23/17 11:04 Dose: 30 ml Clonazepam (Klonopin) 1 mg PO BID STEFFANIE PRN Reason: Protocol Stop: 07/17/17 16:59 Last Admin: 05/24/17 08:22 Dose: 1 mg Docusate Sodium (Colace) 250 mg PO BID STEFFANIE Stop: 07/17/17 16:59 Last Admin: 05/24/17 08:22 Dose: 250 mg Levothyroxine Sodium (Synthroid) 0.2 mg PO DAILY STEFFANIE Stop: 07/18/17 08:59 Last Admin: 05/24/17 08:22 Dose: 0.2 mg Magnesium Hydroxide (Milk Of Magnesia) 30 ml PO HS PRN PRN Reason: Constipation Multivitamins/Vitamin C (Theragran) 1 tab PO DAILY STEFFANIE Stop: 07/18/17 08:59 Last Admin: 05/24/17 08:22 Dose: 1 tab Naproxen (Naprosyn) 500 mg PO BID PRN PRN Reason: PAIN Stop: 07/17/17 14:57 Quetiapine Fumarate (Seroquel) 100 mg PO DAILY STEFFANIE PRN Reason: Protocol Stop: 07/18/17 08:59 Last Admin: 05/24/17 08:22 Dose: 100 mg Quetiapine Fumarate (Seroquel) 400 mg PO HS STEFFANIE PRN Reason: Protocol Stop: 07/18/17 18:59 Last Admin: 05/23/17 21:02 Dose: Not Given Zolpidem Tartrate (Ambien) 5 mg PO HS PRN PRN Reason: Insomnia Stop: 07/17/17 14:53 Last Admin: 05/22/17 20:17 Dose: 5 mg General: congested HEENT: NC/AT, PERRLA, EOMI Neck: Supple, No JVD, No LAD Lungs: CTAB Cardiovascular: RRR, Normal S1, Normal S2 Abdomen: soft, globular, non-distended Extremities: edema - Procedures Procedures: Procedures Procedure Code Date EMERGENCY DEPT VISIT 65201 06/27/11 INDIVID PSYCHOTHERAP NEC 94.39 10/26/05 OTHER GROUP THERAPY 94.44 09/24/14 RECREATIONAL THERAPY 93.81 03/06/12 Internal Medicine Assmt/Plan - Assessment Assessment: Current Active Problems Problem Status Onset DISRUPTIVE AND ABUSIVE BEHAVIOUR Acute HTN Asthma/COPD Dyslipidemia schizoaffective disorder hypothyroidism S - Plan Plan: safety precautions continue current orders Nutritional Asmnt/Malnutr-PDOC - Dietary Evaluation Malnutrition Findings (Please click <Entered> for more info): Nutritional Asmnt/Malnutrition Start: 05/23/17 17: 20 Text: Status: Complete Freq: Document 05/23/17 17:20 SAVANAH (Rec: 05/23/17 17:25 SAVANAH [email or web address]) Nutritional Asmnt/Malnutrition Patient General Information Nutritional Screening Moderate Risk Diagnosis psychosis Pertinent Medical Hx/Surgical Hx THN, asthma/COPD, dyslipidemia , Schizophrenia, hypothyroidism Subjective Information Pt seen in room during the time of visit. Pt reported good appetite, likes meatloaf, roast beef and brownie. Per note, PO intake 100%. Current Diet Order/ Nutrition Support Cardiac Pertinent Medications colace, theragran, synthroid Pertinent Labs 05/18 na 133, K 2.6, Cl 98, BUN 18, Cr 1.2, A1c 6.2, AST 63, ALT 35, Alb 4.1 Nutritional Hx/Data Height 5 ft 8 in Height (Calculated Centimeters) 172.7 Current Weight (lbs) 145 lb Weight (Calculated Kilograms) 65.8 Weight (Calculated Grams) 84975.9 [place] Body Weight 154 % [place] Body Weight 94 Body Mass Index (BMI) 22.0 Weight Status Approriate GI Symptoms GI Symptoms None Last BM 05/20 x 2 Difficult in: None Skin Integrity/Comment: sam rivers 23 Estimated Nutritional Goals BEE in Kcals: Using Current wt Calories/Kcals/Kg 25-30 Kcals Calculated 5287-5418 Protein: Using Current wt Protein g/k-1.2 Protein Calculated 66-72 Fluid: ml 1650-1980ml (1ml/kcal) Nutritional Problem No current Nutrition Prob Problem no nutrition problem at this time Malnutrition Alert Protein-Calorie Malnutrition N/A Is there a minimum of two criteria No selected? Query Text:Check all the applicable criteria. A minimum of two criteria are recommended for diagnosis of either severe or non-severe malnutrition. Intervention/Recommendation Comments 1. Continue with current diet as ordered. 2. Monitor PO intake, wt, labs and skin integrity 3. F/U as low risk in 7 days, 05/30 Expected Outcomes/Goals Expected Outcomes/Goals 1. PO intake to meet at least 75% of nutritional needs. 2. Wt stability, skin to remain intact, labs to approach WNL.
[2017-05-24] MEDS: Maalox 30 mL Cup PO PRN (13:09)
--- NOTE | 2017-05-25 01:57 | Progress Notes ---
DATE: 05/24/2017 SUBJECTIVE: Staff was spoken to. The patient is interviewed. Mood is noted to be irritable. Affect is constricted. The patient is stating that even though he has been taking 400 mg of the Seroquel at night time and has not been able to sleep. The patient has been fixated on the combination of the Klonopin. The patient's insight and judgment at this time are noted to be fair. No side effects to the medications are noted. In view of the patient's insomnia, the patient is going to be started on Ambien 5 mg at bedtime and the patient is going to be followed up with the supportive therapy. JOB# [id number]
[2017-05-25] MEDS: Levothyroxine 0.1 Mg Tab PO SCH (08:19)
[2017-05-25] MEDS: Multivitamin Tab PO SCH (08:21)
[2017-05-25] MEDS: Maalox 30 mL Cup PO PRN (08:42)
--- NOTE | 2017-05-25 13:31 | Internal Medicine Prog Note ---
Internal Medicine Subjective - Subjective Service Date: 05/25/17 Patient is:: awake, verbal, interactive, ambulating, agitated Per staff patient has:: no adverse event, no episodes of fall, poor appetite, combative, noncompliant, tolerating meds, refusing care Internal Medicine Objective - Results Result Diagrams: 05/18/17 12:00 05/18/17 12:00 Recent Labs: Laboratory Last Values WBC 4.3 Th/cmm (4.8-10.8) L D 05/18/17 12:00 RBC 4.03 Mil/cmm (4.30-5.70) L 05/18/17 12:00 Hgb 12.9 gm/dL (12-16) 05/18/17 12:00 Hct 37.9 % (41.0-60) L D 05/18/17 12:00 MCV 94.2 fl (80-99) 05/18/17 12:00 MCH 31.9 pg (26.0-30.0) H 05/18/17 12:00 MCHC Differential 33.9 pg (28.0-36.0) 05/18/17 12:00 RDW 12.9 % (11.5-20.0) 05/18/17 12:00 Plt Count 175 Th/cmm (150-400) D 05/18/17 12:00 MPV 7.5 fl 05/18/17 12:00 Neutrophils % 62.4 % (40.0-80.0) 05/18/17 12:00 Lymphocytes % 28.0 % (20.0-50.0) 05/18/17 12:00 Monocytes % 7.9 % (2.0-10.0) 05/18/17 12:00 Eosinophils % 1.1 % (0.0-5.0) 05/18/17 12:00 Basophils % 0.6 % (0.0-2.0) 05/18/17 12:00 Sodium 133 mEq/L (136-145) L 05/18/17 12:00 Potassium 3.6 mEq/L (3.5-5.1) 05/18/17 12:00 Chloride 98 mEq/L (98-107) 05/18/17 12:00 Carbon Dioxide 32.0 mEq/L (21.0-31.0) H 05/18/17 12:00 Anion Gap 6.6 (7.0-16.0) L 05/18/17 12:00 BUN 18 mg/dL (7-25) 05/18/17 12:00 Creatinine 1.2 mg/dL (0.7-1.3) 05/18/17 12:00 Est GFR ( Amer) > 60.0 ml/min (>90) 05/18/17 12:00 Est GFR (Non-Af Amer) > 60.0 ml/min 05/18/17 12:00 BUN/Creatinine Ratio 15.0 05/18/17 12:00 Glucose 76 mg/dL (70-105) 05/18/17 12:00 Hemoglobin A1c % 6.2 % (4.0-6.0) H 05/18/17 12:00 Calcium 8.8 mg/dL (8.6-10.3) 05/18/17 12:00 Total Bilirubin 0.3 mg/dL (0.3-1.0) 05/18/17 12:00 AST 63 U/L (13-39) H 05/18/17 12:00 ALT 35 U/L (7-52) 05/18/17 12:00 Alkaline Phosphatase 48 U/L (34-104) 05/18/17 12:00 Total Protein 6.9 gm/dL (6.0-8.3) 05/18/17 12:00 Albumin 4.1 gm/dL (4.2-5.5) L 05/18/17 12:00 Globulin 2.8 gm/dL 05/18/17 12:00 Albumin/Globulin Ratio 1.5 (1.0-1.8) 05/18/17 12:00 Triglycerides 190 mg/dL (<150) H 05/18/17 12:00 Cholesterol 207 mg/dL (<200) H 05/18/17 12:00 LDL Cholesterol Direct 137 mg/dL (75-193) 05/18/17 12:00 HDL Cholesterol 53 mg/dL (23-92) 05/18/17 12:00 TSH > 100.00 uIU/ml (0.34-5.60) H 05/18/17 12:00 Salicylates < 25.0 mg/L (30.0-100.0) L 05/18/17 12:00 Acetaminophen < 10.0 ug/mL (10.0-30.0) L 05/18/17 12:00 Ethyl Alcohol < 10 mg/dL (0-10) 05/18/17 12:00 RPR NONREACTIVE (NONREACTIVE) 05/18/17 12:00 - Physical Exam Vitals and I&O: Vital Signs Temp 98.2 F 05/24/17 14:00 Pulse 73 05/25/17 08:00 Resp 18 05/24/17 14:00 BP 115/48 05/24/17 14:00 Pulse Ox 98 05/24/17 14:00 Intake & Output 05/24/17 05/25/17 05/25/17 18:59 06:59 18:59 Intake Total 1200 Balance 1200 Intake: Oral 1200 Other: # Bowel Movements 1 Stool Characteristics Soft Formed Active Medications: Current Medications Acetaminophen (Tylenol) 650 mg PO Q4HR PRN PRN Reason: Mild Pain / Temp above 100 Stop: 07/17/17 14:53 Al Hydrox/Mg Hydrox/Simethicone (Maalox) 30 ml PO Q4HR PRN PRN Reason: GI DISTRESS Stop: 07/17/17 14:53 Last Admin: 05/25/17 08:42 Dose: 30 ml Clonazepam (Klonopin) 1 mg PO BID STEFFANIE PRN Reason: Protocol Stop: 07/17/17 16:59 Last Admin: 05/25/17 08:19 Dose: 1 mg Docusate Sodium (Colace) 250 mg PO BID STEFFANIE Stop: 07/17/17 16:59 Last Admin: 05/25/17 08:20 Dose: 250 mg Levothyroxine Sodium (Synthroid) 0.2 mg PO DAILY STEFFANIE Stop: 07/18/17 08:59 Last Admin: 05/25/17 08:19 Dose: Not Given Magnesium Hydroxide (Milk Of Magnesia) 30 ml PO HS PRN PRN Reason: Constipation Multivitamins/Vitamin C (Theragran) 1 tab PO DAILY STEFFANIE Stop: 07/18/17 08:59 Last Admin: 05/25/17 08:21 Dose: Not Given Naproxen (Naprosyn) 500 mg PO BID PRN PRN Reason: PAIN Stop: 07/17/17 14:57 Quetiapine Fumarate (Seroquel) 100 mg PO DAILY STEFFANIE PRN Reason: Protocol Stop: 07/18/17 08:59 Last Admin: 05/25/17 08:21 Dose: 100 mg Quetiapine Fumarate (Seroquel) 400 mg PO HS STEFFANIE PRN Reason: Protocol Stop: 07/18/17 18:59 Last Admin: 05/24/17 20:59 Dose: Not Given General: congested HEENT: NC/AT, PERRLA, EOMI Neck: Supple, No JVD, No LAD Lungs: CTAB Cardiovascular: RRR, Normal S1, Normal S2 Abdomen: soft, globular, non-distended Extremities: edema - Procedures Procedures: Procedures Procedure Code Date EMERGENCY DEPT VISIT 28340 06/27/11 INDIVID PSYCHOTHERAP NEC 94.39 10/26/05 OTHER GROUP THERAPY 94.44 09/24/14 RECREATIONAL THERAPY 93.81 03/06/12 Internal Medicine Assmt/Plan - Assessment Assessment: Current Active Problems Problem Status Onset DISRUPTIVE AND ABUSIVE BEHAVIOUR Acute HTN Asthma/COPD Dyslipidemia schizoaffective disorder hypothyroidism S - Plan Plan: safety precautions continue current orders Nutritional Asmnt/Malnutr-PDOC - Dietary Evaluation Malnutrition Findings (Please click <Entered> for more info): Nutritional Asmnt/Malnutrition Start: 05/23/17 17: 20 Text: Status: Complete Freq: Document 05/23/17 17:20 LCHENG (Rec: 05/23/17 17:25 [email or web address]) Nutritional Asmnt/Malnutrition Patient General Information Nutritional Screening Moderate Risk Diagnosis psychosis Pertinent Medical Hx/Surgical Hx THN, asthma/COPD, dyslipidemia , Schizophrenia, hypothyroidism Subjective Information Pt seen in room during the time of visit. Pt reported good appetite, likes meatloaf, roast beef and brownie. Per note, PO intake 100%. Current Diet Order/ Nutrition Support Cardiac Pertinent Medications colace, theragran, synthroid Pertinent Labs 05/18 na 133, K 2.6, Cl 98, BUN 18, Cr 1.2, A1c 6.2, AST 63, ALT 35, Alb 4.1 Nutritional Hx/Data Height 5 ft 8 in Height (Calculated Centimeters) 172.7 Current Weight (lbs) 145 lb Weight (Calculated Kilograms) 65.8 Weight (Calculated Grams) 34338.9 [place] Body Weight 154 % [place] Body Weight 94 Body Mass Index (BMI) 22.0 Weight Status Approriate GI Symptoms GI Symptoms None Last BM 05/20 x 2 Difficult in: None Skin Integrity/Comment: sam rivers 23 Estimated Nutritional Goals BEE in Kcals: Using Current wt Calories/Kcals/Kg 25-30 Kcals Calculated 9587-3637 Protein: Using Current wt Protein g/k-1.2 Protein Calculated 66-72 Fluid: ml 1650-1980ml (1ml/kcal) Nutritional Problem No current Nutrition Prob Problem no nutrition problem at this time Malnutrition Alert Protein-Calorie Malnutrition N/A Is there a minimum of two criteria No selected? Query Text:Check all the applicable criteria. A minimum of two criteria are recommended for diagnosis of either severe or non-severe malnutrition. Intervention/Recommendation Comments 1. Continue with current diet as ordered. 2. Monitor PO intake, wt, labs and skin integrity 3. F/U as low risk in 7 days, 05/30 Expected Outcomes/Goals Expected Outcomes/Goals 1. PO intake to meet at least 75% of nutritional needs. 2. Wt stability, skin to remain intact, labs to approach WNL.
--- NOTE | 2017-05-26 00:02 | Progress Notes ---
DATE: 05/25/2017 Staff was spoken to. The patient is interviewed. Mood is noted to be irritable. Affect is constricted. The patient is mentioning that he needs to be put on Klonopin and Ativan. The patient is very argumentative. No side effects to the medications are noted. The patient is stating that the combination of the 400 mg of Seroquel and Klonopin did not help him to sleep and patient has been placed on Restoril. ASSESSMENT: The patient is still impulsive. PLAN: To continue the patient with the supportive therapy. Encouraged the patient to verbalize the concerns rather than to act out. JOB# [id number]
[2017-05-26] MEDS: Multivitamin Tab PO SCH (08:56)
[2017-05-26] MEDS: Levothyroxine 0.1 Mg Tab PO SCH (08:57)
--- NOTE | 2017-05-26 12:55 | Internal Medicine Prog Note ---
Internal Medicine Subjective - Subjective Service Date: 05/26/17 Patient is:: awake, verbal, interactive, ambulating, agitated Per staff patient has:: no adverse event, no episodes of fall, poor appetite, combative, noncompliant, tolerating meds, refusing care Internal Medicine Objective - Results Result Diagrams: 05/18/17 12:00 05/18/17 12:00 Recent Labs: Laboratory Last Values WBC 4.3 Th/cmm (4.8-10.8) L D 05/18/17 12:00 RBC 4.03 Mil/cmm (4.30-5.70) L 05/18/17 12:00 Hgb 12.9 gm/dL (12-16) 05/18/17 12:00 Hct 37.9 % (41.0-60) L D 05/18/17 12:00 MCV 94.2 fl (80-99) 05/18/17 12:00 MCH 31.9 pg (26.0-30.0) H 05/18/17 12:00 MCHC Differential 33.9 pg (28.0-36.0) 05/18/17 12:00 RDW 12.9 % (11.5-20.0) 05/18/17 12:00 Plt Count 175 Th/cmm (150-400) D 05/18/17 12:00 MPV 7.5 fl 05/18/17 12:00 Neutrophils % 62.4 % (40.0-80.0) 05/18/17 12:00 Lymphocytes % 28.0 % (20.0-50.0) 05/18/17 12:00 Monocytes % 7.9 % (2.0-10.0) 05/18/17 12:00 Eosinophils % 1.1 % (0.0-5.0) 05/18/17 12:00 Basophils % 0.6 % (0.0-2.0) 05/18/17 12:00 Sodium 133 mEq/L (136-145) L 05/18/17 12:00 Potassium 3.6 mEq/L (3.5-5.1) 05/18/17 12:00 Chloride 98 mEq/L (98-107) 05/18/17 12:00 Carbon Dioxide 32.0 mEq/L (21.0-31.0) H 05/18/17 12:00 Anion Gap 6.6 (7.0-16.0) L 05/18/17 12:00 BUN 18 mg/dL (7-25) 05/18/17 12:00 Creatinine 1.2 mg/dL (0.7-1.3) 05/18/17 12:00 Est GFR ( Amer) > 60.0 ml/min (>90) 05/18/17 12:00 Est GFR (Non-Af Amer) > 60.0 ml/min 05/18/17 12:00 BUN/Creatinine Ratio 15.0 05/18/17 12:00 Glucose 76 mg/dL (70-105) 05/18/17 12:00 Hemoglobin A1c % 6.2 % (4.0-6.0) H 05/18/17 12:00 Calcium 8.8 mg/dL (8.6-10.3) 05/18/17 12:00 Total Bilirubin 0.3 mg/dL (0.3-1.0) 05/18/17 12:00 AST 63 U/L (13-39) H 05/18/17 12:00 ALT 35 U/L (7-52) 05/18/17 12:00 Alkaline Phosphatase 48 U/L (34-104) 05/18/17 12:00 Total Protein 6.9 gm/dL (6.0-8.3) 05/18/17 12:00 Albumin 4.1 gm/dL (4.2-5.5) L 05/18/17 12:00 Globulin 2.8 gm/dL 05/18/17 12:00 Albumin/Globulin Ratio 1.5 (1.0-1.8) 05/18/17 12:00 Triglycerides 190 mg/dL (<150) H 05/18/17 12:00 Cholesterol 207 mg/dL (<200) H 05/18/17 12:00 LDL Cholesterol Direct 137 mg/dL (75-193) 05/18/17 12:00 HDL Cholesterol 53 mg/dL (23-92) 05/18/17 12:00 TSH > 100.00 uIU/ml (0.34-5.60) H 05/18/17 12:00 Salicylates < 25.0 mg/L (30.0-100.0) L 05/18/17 12:00 Acetaminophen < 10.0 ug/mL (10.0-30.0) L 05/18/17 12:00 Ethyl Alcohol < 10 mg/dL (0-10) 05/18/17 12:00 RPR NONREACTIVE (NONREACTIVE) 05/18/17 12:00 - Physical Exam Vitals and I&O: Vital Signs Temp 98.0 F 05/25/17 21:49 Pulse 65 05/26/17 05:41 Resp 20 05/26/17 05:41 BP 121/77 05/26/17 05:41 Pulse Ox 100 05/26/17 05:41 Intake & Output 05/25/17 05/26/17 05/26/17 18:59 06:59 18:59 Intake Total 1000 Balance 1000 Intake: Oral 1000 Other: # Voids 3 Stool Characteristics Soft Formed Active Medications: Current Medications Acetaminophen (Tylenol) 650 mg PO Q4HR PRN PRN Reason: Mild Pain / Temp above 100 Stop: 07/17/17 14:53 Al Hydrox/Mg Hydrox/Simethicone (Maalox) 30 ml PO Q4HR PRN PRN Reason: GI DISTRESS Stop: 07/17/17 14:53 Last Admin: 05/25/17 08:42 Dose: 30 ml Clonazepam (Klonopin) 1 mg PO BID STEFFANIE PRN Reason: Protocol Stop: 07/17/17 16:59 Last Admin: 05/26/17 08:57 Dose: 1 mg Docusate Sodium (Colace) 250 mg PO BID STEFFANIE Stop: 07/17/17 16:59 Last Admin: 05/26/17 08:56 Dose: 250 mg Levothyroxine Sodium (Synthroid) 0.2 mg PO DAILY STEFFANIE Stop: 07/18/17 08:59 Last Admin: 05/26/17 08:57 Dose: 0.2 mg Lorazepam (Ativan) 1 mg PO HS STEFFANIE PRN Reason: Protocol Stop: 05/26/17 20:59 Last Admin: 05/25/17 21:10 Dose: 1 mg Magnesium Hydroxide (Milk Of Magnesia) 30 ml PO HS PRN PRN Reason: Constipation Multivitamins/Vitamin C (Theragran) 1 tab PO DAILY STEFFANIE Stop: 07/18/17 08:59 Last Admin: 05/26/17 08:56 Dose: 1 tab Naproxen (Naprosyn) 500 mg PO BID PRN PRN Reason: PAIN Stop: 07/17/17 14:57 Quetiapine Fumarate (Seroquel) 100 mg PO DAILY STEFFANIE PRN Reason: Protocol Stop: 07/18/17 08:59 Last Admin: 05/26/17 08:56 Dose: 100 mg Quetiapine Fumarate (Seroquel) 400 mg PO HS STEFFANIE PRN Reason: Protocol Stop: 07/18/17 18:59 Last Admin: 05/25/17 21:11 Dose: Not Given General: congested HEENT: NC/AT, PERRLA, EOMI Neck: Supple, No JVD, No LAD Lungs: CTAB Cardiovascular: RRR, Normal S1, Normal S2 Abdomen: soft, globular, non-distended Extremities: edema - Procedures Procedures: Procedures Procedure Code Date EMERGENCY DEPT VISIT 54440 06/27/11 INDIVID PSYCHOTHERAP NEC 94.39 10/26/05 OTHER GROUP THERAPY 94.44 09/24/14 RECREATIONAL THERAPY 93.81 03/06/12 Internal Medicine Assmt/Plan - Assessment Assessment: Current Active Problems Problem Status Onset DISRUPTIVE AND ABUSIVE BEHAVIOUR Acute HTN Asthma/COPD Dyslipidemia schizoaffective disorder hypothyroidism S - Plan Plan: safety precautions continue current orders Nutritional Asmnt/Malnutr-PDOC - Dietary Evaluation Malnutrition Findings (Please click <Entered> for more info): Nutritional Asmnt/Malnutrition Start: 05/23/17 17: 20 Text: Status: Complete Freq: Document 05/23/17 17:20 LCHENG (Rec: 05/23/17 17:25 [email or web address]) Nutritional Asmnt/Malnutrition Patient General Information Nutritional Screening Moderate Risk Diagnosis psychosis Pertinent Medical Hx/Surgical Hx THN, asthma/COPD, dyslipidemia , Schizophrenia, hypothyroidism Subjective Information Pt seen in room during the time of visit. Pt reported good appetite, likes meatloaf, roast beef and brownie. Per note, PO intake 100%. Current Diet Order/ Nutrition Support Cardiac Pertinent Medications colace, theragran, synthroid Pertinent Labs 05/18 na 133, K 2.6, Cl 98, BUN 18, Cr 1.2, A1c 6.2, AST 63, ALT 35, Alb 4.1 Nutritional Hx/Data Height 5 ft 8 in Height (Calculated Centimeters) 172.7 Current Weight (lbs) 145 lb Weight (Calculated Kilograms) 65.8 Weight (Calculated Grams) 22331.9 [place] Body Weight 154 % [place] Body Weight 94 Body Mass Index (BMI) 22.0 Weight Status Approriate GI Symptoms GI Symptoms None Last BM 05/20 x 2 Difficult in: None Skin Integrity/Comment: sam rivers 23 Estimated Nutritional Goals BEE in Kcals: Using Current wt Calories/Kcals/Kg 25-30 Kcals Calculated 4616-1600 Protein: Using Current wt Protein g/k-1.2 Protein Calculated 66-72 Fluid: ml 1650-1980ml (1ml/kcal) Nutritional Problem No current Nutrition Prob Problem no nutrition problem at this time Malnutrition Alert Protein-Calorie Malnutrition N/A Is there a minimum of two criteria No selected? Query Text:Check all the applicable criteria. A minimum of two criteria are recommended for diagnosis of either severe or non-severe malnutrition. Intervention/Recommendation Comments 1. Continue with current diet as ordered. 2. Monitor PO intake, wt, labs and skin integrity 3. F/U as low risk in 7 days, 05/30 Expected Outcomes/Goals Expected Outcomes/Goals 1. PO intake to meet at least 75% of nutritional needs. 2. Wt stability, skin to remain intact, labs to approach WNL.
--- NOTE | 2017-05-26 18:36 | Progress Notes ---
DATE: 05/26/2017 PSYCHIATRIC PROGRESS NOTE SUBJECTIVE: Staff was spoken to. The patient is interviewed. Mood is noted to be irritable. Affect is constricted. Insight and judgment at this time are noted to be still impaired. Impulse control seems to be improving. The patient is not presenting with any threats to harm self or others. The patient has been fixated on going back to the facility and the patient, however, has been still insisting on having both the Klonopin and the Ativan. ASSESSMENT: The patient is still impulsive and is coming under control. PLAN: To continue the patient with the supportive therapy. I encouraged the patient to verbalize the concerns rather than to act out. JOB# [id number]
--- NOTE | 2017-06-10 10:07 | Discharge Summary ---
DATE OF DISCHARGE: 05/26/2017 IDENTIFYING DATA: The patient is a 61-year-old male, resident of a [facility]. Information obtained by directly interviewing the patient as well as reviewing the admission papers and they are reliable. JUSTIFICATION OF HOSPITALIZATION: The patient is admitted here for acute agitation. CHIEF COMPLAINT: "I don't need to have any medications. I do need to have any changes in my medication." DIAGNOSES AT THE TIME OF ADMISSION: AXIS I: Schizoaffective disorder. AXIS II: None. AXIS III: As per Dr. Ng. HISTORY OF PRESENT ILLNESS: Please refer the 05/19/2017 dictation done by me. Physical examination was done by Dr. Ng and is noted to be significant for hypertension, asthma, COPD, dyslipidemia, hypothyroidism. Lab studies of the hospitalization have been reviewed by Dr. Ng. HOSPITAL COURSE AND RESPONSE TO TREATMENT: The patient has been closely monitored on the inpatient unit. The patient has been given the Seroquel 100 mg in the morning and 400 mg at bedtime, clonazepam as given 1 mg twice a day. The patient has been very resistive in decreasing the dose and he wants both Klonopin as well as Ativan. The patient has been closely monitored and has been able to calm down. The patient was finally discharged to [facility] where to be followed up by Dr. Rivera. MENTAL STATUS EXAMINATION: At the time of discharge, patient's mood, to be less irritable. Affect is appropriate. Not suicidal or homicidal. Insight and judgment are improving. Impulse control seems to be fair. No side effects to the medications are noted at the time of discharge. CONDITION: At the time of discharge noted to be stable. DIAGNOSES AT THE TIME OF DISCHARGE: AXIS I: Schizoaffective disorder. AXIS II: None. AXIS III: Hypertension, hyperlipidemia, hypothyroidism, arthritis. AFTERCARE PLAN: The patient is discharged to [facility]. [facility]# [id number]
== END 2017-05-26 14:45 | disposition home or self-care (01) | DRG 885 ==
LOC: ER 11:25 → GERO 14:42
DX: F25.9 Schizoaffective disorder, unspecified (principal); D72.819 Decreased white blood cell count, unspecified; E03.9 Hypothyroidism, unspecified; E78.5 Hyperlipidemia, unspecified; I10 Essential (primary) hypertension; J44.9 Chronic obstructive pulmonary disease, unspecified; F17.210 Nicotine dependence, cigarettes, uncomplicated; Z79.899 Other long term (current) drug therapy; Z88.0 Allergy status to penicillin
CPT/HCPCS: 36415-UA; 80053-TC; 80061-TC; 80320-TC; 80329-TC; 83036-90; 84443-TC; 85025-TC; 86592-TC; 93005; J1200; J1630; J2060; Z7610

== ENCOUNTER 2017-06-12 13:19 | Emergency (ER) | payer MEDICARE, BC, MEDICAID ==
[2017-06-12] MEDS ORDERED: Maalox 30 mL Cup PO ONE (14:33)
[2017-06-12 14:57] LABS: EOSINOPHILE ABSOLUTE 0.3 Th/cmm (0.1-0.4); HEMATOCRIT 37.4 % (41.0-60); HEMOGLOBIN 12.6 gm/dL (12-16); LYMPHOCYTE ABSOLUTE 0.2 Th/cmm (1.5-3.0); MANUAL DIFF REQUIRED? YES; MEAN CELL VOLUME 92.7 fl (80-99); MEAN CORPUSCULAR HEMOGLOBIN 31.1 pg (26.0-30.0); MEAN CORPUSCULAR HGB CONC 33.5 pg (28.0-36.0); MEAN PLATELET VOLUME 7.3 fl; MONOCYTE ABSOLUTE 2.2 Th/cmm (0.3-1.0); NEUTROPHILE ABSOLUTE 3.2 Th/cmm (1.8-8.0); PLATELET COUNT 210 Th/cmm (150-400); RED BLOOD COUNT 4.03 Mil/cmm (4.30-5.70); RED CELL DISTRIBUTION WIDTH 12.2 % (11.5-20.0)
[2017-06-12 15:06] LABS: WHITE BLOOD COUNT 5.9 Th/cmm (4.8-10.8)
[2017-06-12 15:55] LABS: ALB/GLOB RATIO 1.2 (1.0-1.8); ALBUMIN 4.2 gm/dL (4.2-5.5); ALKALINE PHOSPHATASE 56 U/L (34-104); ANION GAP 10.4 (7.0-16.0); BILIRUBIN,TOTAL 0.4 mg/dL (0.3-1.0); BUN - UREA NITROGEN 17 mg/dL (7-25); CALCIUM SERUM 8.8 mg/dL (8.6-10.3); CARBON DIOXIDE 29.5 mEq/L (21.0-31.0); CHLORIDE 96 mEq/L (98-107); GFR AFRICAN-AMERICAN > 60.0 ml/min (>90); GFR NON AFRICAN-AMERICAN > 60.0 ml/min; GLUCOSE 81 mg/dL (70-105); POTASSIUM SERUM 3.9 mEq/L (3.5-5.1); SGOT 93 U/L (13-39); SGPT/ALT 47 U/L (7-52); SODIUM SERUM 132 mEq/L (136-145); TOTAL PROTEIN,SERUM 7.7 gm/dL (6.0-8.3)
--- NOTE | 2017-06-12 17:21 | ER Physician Documentation ---
DATE OF SERVICE: Medical clearance report and medical evaluation and treatment on patient HISTORY OF PRESENT ILLNESS: The patient was seen on 06/12/2017. The patient came to the Emergency Room for medical clearance for psych admission. The patient was interviewed. The patient says that he has constipation leading as dry. He has been at one of the other long-term for the past 7 years, he has been referred by Dr. Ng to this institution for going to the psych facility and medical clearance, hence I saw the patient. The patient does not have any other medical problems. The patient does not have any heart problems, lung problems. The patient says that he is dried up over there and he says to me that the last night he drank two cans of soda and he got poisoned so one can see his mental status. He is not right, rightly saw the patient is referred here for medical clearance. HISTORY OF PRESENT ILLNESS: The patient is known to have encephalopathy by the things that came from the long-term. The patient has anemia. The patient has hyperthyroidism. The patient has schizophrenia on a level 1-4, it is about 4. PAST MEDICAL HISTORY: No past history of surgery. PAST SURGICAL HISTORY: No past history. FAMILY HISTORY: Pertinent. REVIEW OF SYSTEMS: EYES: No history of double vision, blurring or blindness. No history of eye surgery. ENDOCRINE: No history of any diabetes mellitus, hyperthyroidism. CARDIAC: No history of chest pain, myocardial infarction, rheumatic fever, valvular heart disease, pericardial disease, or cardiomyopathy. BONES AND JOINTS: No apparent complaints except that he seems that he is dried up. The patient wanted less blood to be drawn from him, initially was refusing blood drawing, but then he agreed. The patient has no pain. GI: The patient has chronic constipation and this needs to be relieved. He does have some slight heartburn. Otherwise, no other significant medical complaints. PULMONARY: No history of (neumonia), (TB), (pulmonary embolism), (COPD), (emphysema), (bronchitis) GI: No history of any diarrhea, but history of constipation is present. No history of any liver disease. GENITOURINARY: The patient has started to have slight difficulty in urination, but not much. The patient does not have any prostate enlargement or not taking any medications for the same. HEMATOLOGY/ONCOLOGY: Negative. No history of cancer, leukemia, bone cancer, etc. He has a birthmark on the right side of the forehead. PHYSICAL EXAMINATION: VITAL SIGNS: Temperature is 97.8, pulse is 82, respirations 18, blood pressure 132/73, oxygen saturation is 100%, height of 70 inches, weight 190 pounds point. The patient took pneumonia vaccine in , I cannot read details 2012. I cannot understand when what was taken. The patient does smoke cigarettes, 6-7 cigarettes a day. The nursing sheet that came from the long-term. The patient came from [facility] here by Dr. Ng's. A male patient and again the diagnosis is schizophrenia, psychosis, anxiety and increased response to internal stimuli, refusing medications. ALLERGY: To PENICILLIN does not, then state what kind of reaction occurs with penicillin. ADMITTING REFERRING PHYSICIAN: Nino Ng D.O., telephone number is [phone]. The patient has what he calls conservatorship by honorable rn angiography of [facility] Juan Amador as conservatorship to be prepared for him. In the past history, there I see that the patient had a history of besides the mentioned above, the patient has history of hypertension, asthma, COPD, dyslipidemia, and hypothyroidism. PAST SURGICAL HISTORY: Includes a tonsillectomy. FAMILY HISTORY: Mother is alive, history of unknown smoking 6-7 cigarettes, does not drink any alcoholic beverages. CURRENT MEDICATIONS: On which the patient was at the long-term included lorazepam, Seroquel, benztropine, Colace, levothyroxine, Mylanta, naproxen and again Seroquel, but the timings are different which will be put in the chart by the nurse. Allergy was verified on 05/18/2017 by the nurse of allergy to PENICILLIN. Review of system, I already mentioned. On physical exam, I mentioned that our clinical impression is the patient has severe schizophrenia, psychosis, history of allergy to PENICILLIN, psychosis, and the patient has probably sundown effect. History of asthma, history of hypertension, dyslipidemia, and hypothyroidism. Then, surgical history of tonsillectomy. 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 Once we get all the other things, we will give an addendum report and if nothing positive medically castro, we find it. Then, the patient will be sent to the psychiatric floor after talking to Dr. Ng. [facility]# [id number]
[2017-06-12 19:46] LABS: BAND NEUTROPHILE 0 % (0-10); BASOPHIL 0 % (0-3); EOSINOPHIL 0 % (0-5); LYMPHOCYTE 33 % (20-50); MONOCYTE 4 % (2-10); NEUTROPHILS 63 % (40-80); PLATELET ESTIMATE ADEQUATE (NORMAL); PLATELET MORPHOLOGY NORMAL (NORMAL); TOTAL CELLS COUNTED 100
--- NOTE | 2017-06-13 08:10 | Diagnostic Imaging Report ---
Exam: Chest x-ray HISTORY: Pneumonia. Findings: Frontal summation of chest was reviewed. The study was compared to the prior exam of 09/24/2014. The study demonstrates no active pulmonic infiltrates or effusions. COPD changes are noted. Mild atelectatic change in right base appreciated. Bony thorax intact. IMPRESSION 1. COPD changes 2. Mild right basilar atelectasis.
--- NOTE | 2017-06-15 16:09 | Discharge Summary ---
DATE OF DISCHARGE: [facility] HOSPITAL COURSE: The patient was here. We did workup on him to find out if there are any medical reasons to keep him here. We did not find anything significant on him. EKG showed normal sinus rhythm and perhaps one PVC may be present in lead 1, 2, 3 and otherwise poor R-wave progression on the precordium is noted, but there is no definite evidence of myocardial infarction. The patient's lab workup was done and the lab workup were essentially within normal limits, but let me see if I can give you some lab results. The patient was on these medications lorazepam, Seroquel, Cogentin, Colace, Synthroid, Mylanta, Naprosyn, ____ clonazepam and those will be continued. The patient's final diagnoses is disruptive and abusive behavior. The patient does not want to stay here. He appears to be calm and poised and the patient wants to go home. He wants to think about it. He wants to talk to his mother. We cannot reach his mother and there is no message to be kept for the mother, so the patient will be going home. The patient's final diagnoses besides other diagnoses are disruptive and abuse behavior, hypertension, asthma, COPD, dyslipidemia, schizophrenic effect, hypothyroidism. The patient has a conservator and patient will be going back to his skilled nursing where he will take care of his medical problems over there and the patient has all vaccinations and everything is current. LABORATORY DATA: The lab results were done, which showed white count of 5.9, hemoglobin 12.6, hematocrit 37.5, platelet count 210, 000. Electrolytes: Sodium 132, potassium 3.9, chloride 96, BUN 17, creatinine 1. AST is 93, somewhat elevated and may be secondary to the drugs. The doctor there should be able to sort that out. ALT is 47, alkaline phosphatase 56, total protein 7.7, albumin 4.2, globulin 3.5, albumin globulin ratio is 1.2. Hemoglobin 12.6, hematocrit 37.4. The patient is going home. I will call the ambulance and send the patient back to his place, so he is going home. The patient in bed #2 will be going home. JOB# [id number]
== END 2017-06-12 19:01 ==
LOC: ER 13:19
DX: F20.9 Schizophrenia, unspecified (principal)
CPT/HCPCS: 36415-UA; 71045-TC; 80053-TC; 84153-90; 85007-TC; 85027-TC; 93005

== ENCOUNTER 2017-06-30 13:07 | Inpatient (IN) | payer MEDICARE, BC, MEDICAID ==
--- NOTE | 2017-06-30 13:25 | ED Physician Chart ---
ED Chief Complaint/HPI - Patient Information Date Seen:: 06/30/17 Time Seen:: 13:24 Chief Complaint:: BLE edema History of Present Illness:: 62 yo male was brought from [facility] care facility to ER for evaluation of BLE erythema and edema for 6 days. Allergies:: Allergies Allergy/AdvReac Type Severity Reaction Status Date / Time penicillinase Allergy Verified 05/18/17 11:53 Penicillins Allergy Verified 06/12/17 16:38 ED Review of Systems - Review of Systems General/Constitutional: No fever Skin: Skin lesions Head: No headache Eyes: No pain ENT: No nasal drainage Neck: No neck pain Cardio Vascular: No chest pain, edema Pulmonary: No SOB GI: No nausea, No vomiting Musculoskeletal: No bone or joint pain Neurological: No focal symptoms ED Past Medical History - Past Medical History Past Medical History: Asthma/COPD, Thyroid disorder (hyothyroidism), Other ( anemia, encephalopathy) Social History: Smoker, No Alcohol, No Drug Use Psychiatricy History: Schizophrenia, Other (Anxiety, psychosis) Family Medical History - Family Member Mother History Unknown: Yes ED Physical Exam - Physical Examination General/Constitutional: Awake Eyes: PERRL ENMT: Nasal exam nl Neck: No nuchal rigidity Respiratory: No Wheeze/Rhonchi/Rales Cardio Vascular: RRR, No murmur, gallop, rubs, NL S1 S2 GI: No tenderness/rebounding/guarding Other Extremities comments:: BLE erythema, swelling and warmness Neuro/Psych: No focal deficits ED Labs/Radiology/EKG Results - Radiology Results Results: BLE venous u/s: negative for DVT CXR: no focal consolidation, cardiomegaly ED Assessment - Assessment General Assessment: Cellulitis of bilateral lower extremities Leukopenia Hyponatremia Elevated D-dimer Assessment/Comments:: CBC, CMP, CXR BLE u/s: negative DVT NS 1L IV bolus Vancomycin IV Zosyn IV Levaquin IV Admit to med surg ED Septic Shock - . Is Septic Shock (SBP<90, OR Lactate>4 mmol\L) present?: No ED Reassessment (Disposition) - Reassessment Reassessment Condition:: Improved - Patient Disposition Discharge/Transfer:: Acute Care w/in this hosp Admitting Medical Physician:: Nino Ng ED Discharge Plan - Patient Disposition Admit/Discharge/Transfer: TRANSFER TO ACUTE HOSP Condition at Disposition: Stable
[2017-06-30 13:38] LABS: % BASOPHILS 0.6 % (0.0-2.0); % EOSINOPHILS 0.3 % (0.0-5.0); % LYMPHOCYTES 25.7 % (20.0-50.0); % MONOCYTES 7.7 % (2.0-10.0); % NEUTROPHILS 65.7 % (40.0-80.0); HEMATOCRIT 35.1 % (41.0-60); HEMOGLOBIN 12.1 gm/dL (12-16); LYMPHOCYTE ABSOLUTE 1.1 Th/cmm (1.5-3.0); MEAN CELL VOLUME 93.9 fl (80-99); MEAN CORPUSCULAR HEMOGLOBIN 32.3 pg (26.0-30.0); MEAN CORPUSCULAR HGB CONC 34.4 pg (28.0-36.0); MEAN PLATELET VOLUME 6.7 fl; MONOCYTE ABSOLUTE 0.3 Th/cmm (0.3-1.0); NEUTROPHILE ABSOLUTE 2.8 Th/cmm (1.8-8.0); PLATELET COUNT 244 Th/cmm (150-400); RED BLOOD COUNT 3.74 Mil/cmm (4.30-5.70); RED CELL DISTRIBUTION WIDTH 12.2 % (11.5-20.0)
[2017-06-30 13:44] LABS: WHITE BLOOD COUNT 4.2 Th/cmm (4.8-10.8)
[2017-06-30 13:47] LABS: PROTHROMBIN TIME (TEST) 10.4 SECONDS (9.5-11.5)
[2017-06-30 13:52] LABS: ALB/GLOB RATIO 1.1 (1.0-1.8); ALKALINE PHOSPHATASE 57 U/L (34-104); ANION GAP 8.6 (7.0-16.0); BILIRUBIN,TOTAL 0.3 mg/dL (0.3-1.0); BUN - UREA NITROGEN 16 mg/dL (7-25); CALCIUM SERUM 8.9 mg/dL (8.6-10.3); CHLORIDE 96 mEq/L (98-107); CREATININE - SERUM 1.1 mg/dL (0.7-1.3); GFR AFRICAN-AMERICAN > 60.0 ml/min (>90); GFR NON AFRICAN-AMERICAN > 60.0 ml/min; GLUCOSE 116 mg/dL (70-105); POTASSIUM SERUM 3.6 mEq/L (3.5-5.1); SGOT 45 U/L (13-39); SGPT/ALT 26 U/L (7-52); SODIUM SERUM 132 mEq/L (136-145); TOTAL PROTEIN,SERUM 7.5 gm/dL (6.0-8.3)
--- NOTE | 2017-06-30 14:04 | Diagnostic Imaging Report ---
Portable chest x-ray HISTORY: Shortness of breath There is a poor inspiration. Despite this factor, the heart size appears somewhat enlarged. No focal pulmonary processes. No hilar or mediastinal abnormalities. IMPRESSION: 1. No acute focal pulmonary processes 2. Suggestion of cardiomegaly
[2017-06-30 15:02] LABS: DDIMER QUANT 547 ng/mL (100-400)
[2017-06-30] MEDS ORDERED: Sodium Chloride 0.9% 1,000 ML IV ONE (15:31)
--- NOTE | 2017-06-30 18:31 | History & Physical ---
ADMIT DATE: 06/30/2017 CHIEF COMPLAINT: Bilateral lower extremity redness and warmth x1 week. HISTORY OF PRESENT ILLNESS: This is a 61-year-old male who is well known to me from [facility]. Last week, the patient started to develop pitting edema +3. The patient was given a dose of Lasix 40 mg x 3 days. Despite of being on Lasix, the patient's edema started to worsen. The patient's bilateral lower extremities started to have warmth and redness. For this reason, the patient will be admitted to the med/surg unit for further management. The patient also had a venous Doppler done in the ER and was negative for any DVT. PAST MEDICAL HISTORY: Hypertension, asthma, COPD, dyslipidemia, schizoaffective disorder and hypothyroidism. PAST SURGICAL HISTORY: Tonsillectomy. SOCIAL HISTORY: The patient is a skilled nursing resident, requiring 24-hour nursing care. ALLERGIES: PENICILLIN. FAMILY HISTORY: Noncontributory. REVIEW OF SYSTEMS: GENERAL: Denies any fevers and chills. CARDIOVASCULAR: Denies chest pain. RESPIRATORY: Denies shortness of breath. GASTROINTESTINAL: Denies nausea, vomiting, abdominal pain. GENITOURINARY: Denies increased work of dysuria. NEUROLOGIC: No headaches, seizures or syncope. All other systems are reviewed and are negative. PHYSICAL EXAMINATION: GENERAL: The patient is well developed, well nourished, no acute distress. VITAL SIGNS: Temperature 97.3, heart rate 81, blood pressure 115/70, respirations 19 and O2 98%. HEENT: Head; normocephalic, atraumatic. NECK: Supple. No mass. LUNGS: Clear bilaterally. ABDOMEN: Soft and nontender. SKIN: Bilateral lower extremity noted with +2 edema, noted with warmth and redness. LABORATORY DATA: WBC 4.2, H and H 12.1 and 35.1 and platelets of 244. Sodium 132, potassium 3.6, chloride 96, BUN 16 and creatinine 1.1. D-dimer at 547. ASSESSMENT: Bilateral lower extremity cellulitis, hyponatremia, mild protein-calorie malnutrition, hypertension, asthma, schizophrenia and chronic obstructive pulmonary disease. PLAN: The patient to be admitted in med/surg unit. Keep patient on IV antibiotics of vancomycin. Put Psychiatry on the case. We will get followup CBC, BMP for tomorrow morning. We will continue to monitor this patient. JOB# [id number]
[2017-06-30] MEDS ORDERED: Magnesium Hydroxide (MOM) 30 mL UDC PO PRN (18:32)
[2017-06-30] MEDS ORDERED: Non-Formulary Item 1 EA (Haloperidol Decanoate [Haldol Decanoate 50] 1 ML) IM SCH (18:32)
[2017-06-30] MEDS ORDERED: Maalox 30 mL Cup PO PRN ×2 (18:32→21:09)
[2017-06-30] MEDS ORDERED: guaiFENesin 200 MG/10 ML UDC PO PRN (18:32)
[2017-06-30] MEDS: Levofloxacin 500mg/100mL 500 MG/100 ML BAG IV SCH (21:02)
--- NOTE | 2017-07-01 08:24 | Diagnostic Imaging Report ---
Bilateral lower extremity Doppler venous ultrasound exam HISTORY: Pain/swelling Sonographic sector images were obtained through the deep venous systems of both legs. Associated Doppler data was obtained. The exam demonstrates patency of the common femoral, superficial femoral, popliteal, and posterior tibial veins bilaterally. Specifically, no thrombus is seen. There are normal compressibility and augmentation responses. IMPRESSION: Negative exam for deep vein thrombophlebitis.
[2017-07-01] MEDS: Levothyroxine 0.1 Mg Tab PO SCH (10:19)
[2017-07-01] MEDS: Benztropine 1 MG TAB PO SCH (10:19)
--- NOTE | 2017-07-01 12:48 | Internal Medicine Prog Note ---
Internal Medicine Subjective - Subjective Patient seen and examined:: with staff, chart reviewed Patient is:: awake, verbal, interactive, ambulating, talking, agitated Patient Complaints of:: congestion, constipation Per staff patient has:: no adverse event, no episodes of fall, poor appetite, agitated, tolerating meds, refusing care Internal Medicine Objective - Results Result Diagrams: 06/30/17 13:30 06/30/17 13:30 Recent Labs: Laboratory Last Values WBC 4.2 Th/cmm (4.8-10.8) L D 06/30/17 13:30 RBC 3.74 Mil/cmm (4.30-5.70) L 06/30/17 13:30 Hgb 12.1 gm/dL (12-16) 06/30/17 13:30 Hct 35.1 % (41.0-60) L 06/30/17 13:30 MCV 93.9 fl (80-99) 06/30/17 13:30 MCH 32.3 pg (26.0-30.0) H 06/30/17 13:30 MCHC Differential 34.4 pg (28.0-36.0) 06/30/17 13:30 RDW 12.2 % (11.5-20.0) 06/30/17 13:30 Plt Count 244 Th/cmm (150-400) 06/30/17 13:30 MPV 6.7 fl 06/30/17 13:30 Neutrophils % 65.7 % (40.0-80.0) 06/30/17 13:30 Lymphocytes % 25.7 % (20.0-50.0) 06/30/17 13:30 Monocytes % 7.7 % (2.0-10.0) 06/30/17 13:30 Eosinophils % 0.3 % (0.0-5.0) 06/30/17 13:30 Basophils % 0.6 % (0.0-2.0) 06/30/17 13:30 PT 10.4 SECONDS (9.5-11.5) 06/30/17 13:30 INR 1.00 (0.5-1.4) 06/30/17 13:30 PTT (Actin FS) 31.2 SECONDS (26.0-38.0) 06/30/17 13:30 D-Dimer 547 ng/mL (100-400) H 06/30/17 13:30 Sodium 132 mEq/L (136-145) L 06/30/17 13:30 Potassium 3.6 mEq/L (3.5-5.1) 06/30/17 13:30 Chloride 96 mEq/L (98-107) L 06/30/17 13:30 Carbon Dioxide 31.0 mEq/L (21.0-31.0) 06/30/17 13:30 Anion Gap 8.6 (7.0-16.0) 06/30/17 13:30 BUN 16 mg/dL (7-25) 06/30/17 13:30 Creatinine 1.1 mg/dL (0.7-1.3) 06/30/17 13:30 Est GFR ( Amer) > 60.0 ml/min (>90) 06/30/17 13:30 Est GFR (Non-Af Amer) > 60.0 ml/min 06/30/17 13:30 BUN/Creatinine Ratio 14.5 06/30/17 13:30 Glucose 116 mg/dL (70-105) H 06/30/17 13:30 Calcium 8.9 mg/dL (8.6-10.3) 06/30/17 13:30 Total Bilirubin 0.3 mg/dL (0.3-1.0) 06/30/17 13:30 AST 45 U/L (13-39) H 06/30/17 13:30 ALT 26 U/L (7-52) 06/30/17 13:30 Alkaline Phosphatase 57 U/L (34-104) 06/30/17 13:30 Troponin I 0.01 ng/mL (0.01-0.05) 06/30/17 13:30 Total Protein 7.5 gm/dL (6.0-8.3) 06/30/17 13:30 Albumin 4.0 gm/dL (4.2-5.5) L 06/30/17 13:30 Globulin 3.5 gm/dL 06/30/17 13:30 Albumin/Globulin Ratio 1.1 (1.0-1.8) 06/30/17 13:30 - Physical Exam Vitals and I&O: Vital Signs Temp 96.6 F 07/01/17 05:45 Pulse 60 07/01/17 05:45 Resp 16 07/01/17 05:45 BP 98/49 07/01/17 05:45 Pulse Ox 98 07/01/17 05:45 Intake & Output 06/30/17 07/01/17 07/01/17 18:59 06:59 18:59 Intake Total 400 250 Balance 400 250 Weight (lbs) 86.183 kg Intake: Intake, IV Amount 250 Vancomycin HCl 1 gm In 250 Sodium Chloride 0.9% 250 ml @ 165 mls/hr IV Q12H [facility] Rx#:[id number] Oral 400 Other: # Voids 1 # Bowel Movements 0 Active Medications: Current Medications Acetaminophen (Tylenol) 650 mg PO Q4HR PRN PRN Reason: Pain Or Fever above 101 Stop: 08/29/17 18:31 Last Admin: 06/30/17 21:03 Dose: 650 mg Al Hydrox/Mg Hydrox/Simethicone (Maalox) 30 ml PO Q4H PRN PRN Reason: GI DISTRESS Stop: 08/29/17 21:08 Albuterol Sulfate (Albuterol 2.5mg/3ml Neb Ud) 2.5 mg HHN QIDRT [facility] Stop: 08/29/17 18:31 Benztropine Mesylate (Cogentin) 1 mg PO DAILY [facility] Stop: 08/30/17 08:59 Last Admin: 07/01/17 10:19 Dose: Not Given Clonazepam (Klonopin) 1 mg PO BID [facility] PRN Reason: Protocol Stop: 08/29/17 18:31 Last Admin: 07/01/17 10:03 Dose: 1 mg Docusate Sodium (Colace) 200 mg PO BID [facility] Stop: 08/30/17 08:59 Last Admin: 07/01/17 10:06 Dose: 200 mg Furosemide (Lasix) 20 mg IVP BID [facility] Stop: 08/30/17 16:59 Guaifenesin (Robitussin) 200 mg PO Q4HR PRN PRN Reason: Cough or Congestion Stop: 08/29/17 18:31 Haloperidol (Haldol) 2.5 mg PO DAILY [facility] PRN Reason: Protocol Stop: 08/30/17 08:59 Last Admin: 07/01/17 10:19 Dose: Not Given Levofloxacin (Levaquin Pb) 500 mg in 100 mls @ 100 mls/hr IV Q24HR [facility] Stop: 08/29/17 22:30 Last Admin: 06/30/17 21:02 Dose: 100 mls/hr Vancomycin HCl 1 gm/ Sodium (Chloride) 250 mls @ 165 mls/hr IV Q12H [facility] Stop: 08/30/17 08:59 Last Infusion: 07/01/17 12:40 Dose: Infused Ipratropium [place] (Atrovent Neb 0.5mg/2.5ml) 0.5 mg HHN QIDRT [facility] Stop: 08/29/17 18:31 Levothyroxine Sodium (Synthroid) 0.2 mg PO DAILY [facility] Stop: 08/30/17 08:59 Last Admin: 07/01/17 10:19 Dose: Not Given Lorazepam (Ativan) 1 mg PO Q6H PRN; Protocol PRN Reason: Anxiety Stop: 08/29/17 18:31 Lorazepam (Ativan) 1 mg IV Q4HR PRN; Protocol PRN Reason: Seizure Stop: 08/29/17 18:31 Magnesium Hydroxide (Milk Of Magnesia) 30 ml PO HS PRN PRN Reason: Constipation Stop: 08/29/17 18:31 Miscellaneous (Haloperidol Decanoate [Haldol Decanoate 50]) 1 ml IM [id number] [facility] Stop: 08/29/17 18:31 Miscellaneous (Vancomycin Iv Per Pharmacy) 1 ea MC PRN [facility] Stop: 08/29/17 18:31 Naproxen (Naprosyn) 500 mg PO BID PRN PRN Reason: PAIN Stop: 08/29/17 18:31 Ondansetron HCl (Zofran) 4 mg IV Q8H PRN PRN Reason: Nausea / Vomiting Stop: 08/29/17 18:31 Potassium Chloride (Klor-Con) 20 meq PO DAILY [facility] Stop: 08/31/17 08:59 Quetiapine Fumarate (Seroquel) 100 mg PO BID [facility] PRN Reason: Protocol Stop: 08/29/17 18:31 Last Admin: 07/01/17 10:03 Dose: 100 mg Quetiapine Fumarate (Seroquel) 400 mg PO HS [facility] PRN Reason: Protocol Stop: 08/29/17 20:59 Last Admin: 07/01/17 03:41 Dose: Not Given Sodium Chloride (Saline Flush) 10 ml IV QSHIFT [facility] Stop: 08/29/17 19:59 Last Admin: 07/01/17 10:43 Dose: 10 ml General: weak, disheveled, appears older HEENT: NC/AT, PERRLA, EOMI Neck: Supple, No LAD Lungs: congested Cardiovascular: RRR, Normal S1, Normal S2, without murmur Abdomen: soft, globular, distended Extremities: edema, excoriation Neurological: no change, gait stable - Procedures Procedures: Procedures Procedure Code Date EMERGENCY DEPT VISIT 79525 06/27/11 INDIVID PSYCHOTHERAP NEC 94.39 10/26/05 OTHER GROUP THERAPY 94.44 09/24/14 RECREATIONAL THERAPY 93.81 03/06/12 Internal Medicine Assmt/Plan - Assessment Assessment: ASSESSMENT: Bilateral lower extremity cellulitis, hyponatremia, mild protein-calorie malnutrition, hypertension, asthma, schizophrenia and chronic obstructive pulmonary disease.fluid overload, possible chf PLAN: The patient to be admitted in med/surg unit. Keep patient on IV antibiotics of vancomycin. Put Psychiatry on the case. We will get followup CBC, BMP for tomorrow morning. We will continue to monitor this patient. - Plan Plan: will add 2 d echo will refer to camila verma rn and pt re care
[2017-07-01] MEDS: Levofloxacin 500mg/100mL 500 MG/100 ML BAG IV SCH (21:40)
[2017-07-02] MEDS: Benztropine 1 MG TAB PO SCH (09:47)
[2017-07-02] MEDS: Potassium Chloride 20 mEq ER Tab PO SCH (09:48)
[2017-07-02] MEDS: Levothyroxine 0.1 Mg Tab PO SCH (09:49)
--- NOTE | 2017-07-02 12:45 | Internal Medicine Prog Note ---
Internal Medicine Subjective - Subjective Patient seen and examined:: with staff, chart reviewed Patient is:: awake, verbal, interactive, ambulating, talking, agitated Patient Complaints of:: congestion, constipation Per staff patient has:: no adverse event, no episodes of fall, poor appetite, agitated, tolerating meds, refusing care Internal Medicine Objective - Results Result Diagrams: 06/30/17 13:30 06/30/17 13:30 Recent Labs: Laboratory Last Values WBC 4.2 Th/cmm (4.8-10.8) L D 06/30/17 13:30 RBC 3.74 Mil/cmm (4.30-5.70) L 06/30/17 13:30 Hgb 12.1 gm/dL (12-16) 06/30/17 13:30 Hct 35.1 % (41.0-60) L 06/30/17 13:30 MCV 93.9 fl (80-99) 06/30/17 13:30 MCH 32.3 pg (26.0-30.0) H 06/30/17 13:30 MCHC Differential 34.4 pg (28.0-36.0) 06/30/17 13:30 RDW 12.2 % (11.5-20.0) 06/30/17 13:30 Plt Count 244 Th/cmm (150-400) 06/30/17 13:30 MPV 6.7 fl 06/30/17 13:30 Neutrophils % 65.7 % (40.0-80.0) 06/30/17 13:30 Lymphocytes % 25.7 % (20.0-50.0) 06/30/17 13:30 Monocytes % 7.7 % (2.0-10.0) 06/30/17 13:30 Eosinophils % 0.3 % (0.0-5.0) 06/30/17 13:30 Basophils % 0.6 % (0.0-2.0) 06/30/17 13:30 PT 10.4 SECONDS (9.5-11.5) 06/30/17 13:30 INR 1.00 (0.5-1.4) 06/30/17 13:30 PTT (Actin FS) 31.2 SECONDS (26.0-38.0) 06/30/17 13:30 D-Dimer 547 ng/mL (100-400) H 06/30/17 13:30 Sodium 132 mEq/L (136-145) L 06/30/17 13:30 Potassium 3.6 mEq/L (3.5-5.1) 06/30/17 13:30 Chloride 96 mEq/L (98-107) L 06/30/17 13:30 Carbon Dioxide 31.0 mEq/L (21.0-31.0) 06/30/17 13:30 Anion Gap 8.6 (7.0-16.0) 06/30/17 13:30 BUN 16 mg/dL (7-25) 06/30/17 13:30 Creatinine 1.1 mg/dL (0.7-1.3) 06/30/17 13:30 Est GFR ( Amer) > 60.0 ml/min (>90) 06/30/17 13:30 Est GFR (Non-Af Amer) > 60.0 ml/min 06/30/17 13:30 BUN/Creatinine Ratio 14.5 06/30/17 13:30 Glucose 116 mg/dL (70-105) H 06/30/17 13:30 Calcium 8.9 mg/dL (8.6-10.3) 06/30/17 13:30 Total Bilirubin 0.3 mg/dL (0.3-1.0) 06/30/17 13:30 AST 45 U/L (13-39) H 06/30/17 13:30 ALT 26 U/L (7-52) 06/30/17 13:30 Alkaline Phosphatase 57 U/L (34-104) 06/30/17 13:30 Troponin I 0.01 ng/mL (0.01-0.05) 06/30/17 13:30 B-Natriuretic Peptide 24.9 pg/mL (5.0-100.0) 06/30/17 13:30 Total Protein 7.5 gm/dL (6.0-8.3) 06/30/17 13:30 Albumin 4.0 gm/dL (4.2-5.5) L 06/30/17 13:30 Globulin 3.5 gm/dL 06/30/17 13:30 Albumin/Globulin Ratio 1.1 (1.0-1.8) 06/30/17 13:30 Vancomycin Trough 13.6 ug/mL (-) 07/02/17 08:42 - Physical Exam Vitals and I&O: Vital Signs Temp 97.8 F 07/02/17 04:00 Pulse 76 07/02/17 04:00 Resp 18 07/02/17 04:00 BP 120/72 07/02/17 09:46 Pulse Ox 98 07/02/17 04:00 Intake & Output 07/01/17 07/02/17 07/02/17 18:59 06:59 18:59 Intake Total 250 645 250 Balance 250 645 250 Weight (lbs) 96.162 kg Intake: Intake, IV Amount 250 305 250 Levofloxacin 500mg/100mL 55 500 mg In 100 ml @ 100 mls/hr IV Q24HR [facility] Rx#: [id number] Vancomycin HCl 1 gm In 250 250 250 Sodium Chloride 0.9% 250 ml @ 165 mls/hr IV Q12H [facility] Rx#:[id number] Oral 340 Other: # Voids 3 # Bowel Movements 0 Active Medications: Current Medications Acetaminophen (Tylenol) 650 mg PO Q4HR PRN PRN Reason: Pain Or Fever above 101 Stop: 08/29/17 18:31 Last Admin: 06/30/17 21:03 Dose: 650 mg Al Hydrox/Mg Hydrox/Simethicone (Maalox) 30 ml PO Q4H PRN PRN Reason: GI DISTRESS Stop: 08/29/17 21:08 Albuterol Sulfate (Albuterol 2.5mg/3ml Neb Ud) 2.5 mg HHN QIDRT [facility] Stop: 08/29/17 18:31 Benztropine Mesylate (Cogentin) 1 mg PO DAILY [facility] Stop: 08/30/17 08:59 Last Admin: 07/02/17 09:47 Dose: Not Given Clonazepam (Klonopin) 1 mg PO BID [facility] PRN Reason: Protocol Stop: 08/29/17 18:31 Last Admin: 07/02/17 09:50 Dose: 1 mg Docusate Sodium (Colace) 200 mg PO BID [facility] Stop: 08/30/17 08:59 Last Admin: 07/02/17 09:47 Dose: 200 mg Furosemide (Lasix) 40 mg IVP BID [facility] Stop: 08/31/17 11:05 Guaifenesin (Robitussin) 200 mg PO Q4HR PRN PRN Reason: Cough or Congestion Stop: 08/29/17 18:31 Haloperidol (Haldol) 2.5 mg PO DAILY [facility] PRN Reason: Protocol Stop: 08/30/17 08:59 Last Admin: 07/02/17 09:49 Dose: Not Given Levofloxacin (Levaquin Pb) 500 mg in 100 mls @ 100 mls/hr IV Q24HR [facility] Stop: 08/29/17 22:30 Last Infusion: 07/01/17 22:13 Dose: 0 mls/hr Vancomycin HCl 1 gm/ Sodium (Chloride) 250 mls @ 165 mls/hr IV Q12H [facility] Stop: 08/30/17 08:59 Last Infusion: 07/02/17 12:13 Dose: Infused Ipratropium [place] (Atrovent Neb 0.5mg/2.5ml) 0.5 mg HHN QIDRT [facility] Stop: 08/29/17 18:31 Levothyroxine Sodium (Synthroid) 0.2 mg PO DAILY [facility] Stop: 08/30/17 08:59 Last Admin: 07/02/17 09:49 Dose: Not Given Lorazepam (Ativan) 1 mg PO Q6H PRN; Protocol PRN Reason: Anxiety Stop: 08/29/17 18:31 Lorazepam (Ativan) 1 mg IV Q4HR PRN; Protocol PRN Reason: Seizure Stop: 08/29/17 18:31 Magnesium Hydroxide (Milk Of Magnesia) 30 ml PO HS PRN PRN Reason: Constipation Stop: 08/29/17 18:31 Miscellaneous (Haloperidol Decanoate [Haldol Decanoate 50]) 1 ml IM [id number] [facility] Stop: 08/29/17 18:31 Miscellaneous (Vancomycin Iv Per Pharmacy) 1 ea MC PRN [facility] Stop: 08/29/17 18:31 Naproxen (Naprosyn) 500 mg PO BID PRN PRN Reason: PAIN Stop: 08/29/17 18:31 Ondansetron HCl (Zofran) 4 mg IV Q8H PRN PRN Reason: Nausea / Vomiting Stop: 08/29/17 18:31 Potassium Chloride (Klor-Con) 20 meq PO DAILY [facility] Stop: 08/31/17 08:59 Last Admin: 07/02/17 09:48 Dose: 20 meq Quetiapine Fumarate (Seroquel) 100 mg PO BID [facility] PRN Reason: Protocol Stop: 08/29/17 18:31 Last Admin: 07/02/17 09:50 Dose: 100 mg Quetiapine Fumarate (Seroquel) 400 mg PO HS [facility] PRN Reason: Protocol Stop: 08/29/17 20:59 Last Admin: 07/01/17 21:40 Dose: 400 mg Sodium Chloride (Saline Flush) 10 ml IV QSHIFT [facility] Stop: 08/29/17 19:59 Last Admin: 07/02/17 09:59 Dose: 10 ml General: weak, disheveled, appears older HEENT: NC/AT, PERRLA, EOMI Neck: Supple, No LAD Lungs: congested Cardiovascular: RRR, Normal S1, Normal S2, without murmur Abdomen: soft, globular, distended Extremities: edema, excoriation Neurological: no change, gait stable - Procedures Procedures: Procedures Procedure Code Date EMERGENCY DEPT VISIT 75877 06/27/11 INDIVID PSYCHOTHERAP NEC 94.39 10/26/05 OTHER GROUP THERAPY 94.44 09/24/14 RECREATIONAL THERAPY 93.81 03/06/12 Internal Medicine Assmt/Plan - Assessment Assessment: ASSESSMENT: Bilateral lower extremity cellulitis, hyponatremia, mild protein-calorie malnutrition, hypertension, asthma, schizophrenia and chronic obstructive pulmonary disease.fluid overload, possible chf PLAN: The patient to be admitted in med/surg unit. Keep patient on IV antibiotics of vancomycin. Put Psychiatry on the case. We will get followup CBC, BMP for tomorrow morning. We will continue to monitor this patient. - Plan Plan: will add 2 d echo will refer to camila verma rn and pt re care
[2017-07-02] MEDS: Levofloxacin 500mg/100mL 500 MG/100 ML BAG IV SCH (21:02)
--- NOTE | 2017-07-03 04:46 | Consultation ---
DATE OF CONSULTATION: 07/02/2017 HISTORY OF PRESENT ILLNESS: This 61-year-old male was seen and examined in the courtesy of Dr. Ng. The patient was admitted here and no proper history available from the patient. Information was obtained from the chart. The patient apparently does have history of congestive heart failure, history of hypothyroidism, encephalopathy, history of hyperlipidemia, history of COPD, schizophrenia, psychosis, anemia, abnormal gait, history of electrolyte imbalance, and also had bilateral swelling of the legs for which Doppler venous ultrasound was done and that did not show any DVT. No history of chest pains. No history of respiratory distress. No history of cough, no history of fever, no history of hemoptysis, no history of abdominal pain. No history of nausea or vomiting, no history of hematemesis, no history of melena, no history of bleeding per rectum, no history of hematuria. LABORATORY DATA: INR was 1. WBC 4.2, hemoglobin 12.1, hematocrit 35.1, platelet count was 244. Troponin was 0.01. Sodium 132, potassium 3.6, chloride 96, CO2 of 31, BUN 16, creatinine 1.1, glucose 116, calcium 8.9. Liver function tests were unremarkable. Chest x-ray showed no acute focal pulmonary process cardiomegaly. EKG showed sinus rhythm, no other acute changes. D-dimer was high at 547. PAST MEDICAL HISTORY, SOCIAL HISTORY, FAMILY HISTORY, AND REVIEW OF SYSTEMS: Not much available from the patient. PHYSICAL EXAMINATION: VITAL SIGNS: Heart rate was 60, blood pressure was 134/70. SKIN: Normal. HEAD: Normocephalic. EYES: Conjunctivae were pink. There is no icterus in the eyes. Pupils both equally reactive to light. NECK: There was no increased jugular venous distention, no thyromegaly, no lymphadenopathy. Carotids equal on both sides. CHEST: Bilaterally symmetrical, moved-well with respiration. Respiratory movements equal on both sides. Trachea is central. There is note to percussion. Breath sound, no rales, no rhonchi. CARDIOVASCULAR SYSTEM: PMI not well localized and no positional thrill. No parasternal heave. S1 normal, S2 physiologic. There were no S3, no rub. ABDOMEN: Soft, no tenderness, no rigidity, no guarding and no organomegaly. Bowel sounds normal. EXTREMITIES: There is bilateral edema, no calf tenderness. Peripheral pulses diminished. IMPRESSION: Bilateral swelling of the lower extremity, no DVT on the Doppler ultrasound, elevated D-dimer. We will have to rule out pulmonary embolism, history of hypertension, hypothyroidism, history of congestive heart failure, hyperlipidemia, COPD, schizophrenia, psychosis, encephalopathy, anemia. He is to continue present management. To get echocardiogram to evaluate left ventricular function and valvular structure. Also get BNP, lipid profile, and TSH. Further recommendation will be made depending on the rest of tests available. JOB# [id number]
[2017-07-03] MEDS: Levothyroxine 0.1 Mg Tab PO SCH (08:43)
[2017-07-03] MEDS: Benztropine 1 MG TAB PO SCH ×2 (08:43→08:51)
[2017-07-03] MEDS: Potassium Chloride 20 mEq ER Tab PO SCH (08:46)
--- NOTE | 2017-07-03 09:08 | Internal Medicine Prog Note ---
Internal Medicine Subjective - Subjective Service Date: 07/03/17 (patient has been refusing IV antibiotic , very agitated ) Patient is:: awake, verbal, interactive, ambulating, talking, agitated Patient Complaints of:: congestion, constipation Per staff patient has:: no adverse event, no episodes of fall, poor appetite, agitated, tolerating meds, refusing care Internal Medicine Objective - Results Result Diagrams: 06/30/17 13:30 06/30/17 13:30 Recent Labs: Laboratory Last Values WBC 4.2 Th/cmm (4.8-10.8) L D 06/30/17 13:30 RBC 3.74 Mil/cmm (4.30-5.70) L 06/30/17 13:30 Hgb 12.1 gm/dL (12-16) 06/30/17 13:30 Hct 35.1 % (41.0-60) L 06/30/17 13:30 MCV 93.9 fl (80-99) 06/30/17 13:30 MCH 32.3 pg (26.0-30.0) H 06/30/17 13:30 MCHC Differential 34.4 pg (28.0-36.0) 06/30/17 13:30 RDW 12.2 % (11.5-20.0) 06/30/17 13:30 Plt Count 244 Th/cmm (150-400) 06/30/17 13:30 MPV 6.7 fl 06/30/17 13:30 Neutrophils % 65.7 % (40.0-80.0) 06/30/17 13:30 Lymphocytes % 25.7 % (20.0-50.0) 06/30/17 13:30 Monocytes % 7.7 % (2.0-10.0) 06/30/17 13:30 Eosinophils % 0.3 % (0.0-5.0) 06/30/17 13:30 Basophils % 0.6 % (0.0-2.0) 06/30/17 13:30 PT 10.4 SECONDS (9.5-11.5) 06/30/17 13:30 INR 1.00 (0.5-1.4) 06/30/17 13:30 PTT (Actin FS) 31.2 SECONDS (26.0-38.0) 06/30/17 13:30 D-Dimer 547 ng/mL (100-400) H 06/30/17 13:30 Sodium 132 mEq/L (136-145) L 06/30/17 13:30 Potassium 3.6 mEq/L (3.5-5.1) 06/30/17 13:30 Chloride 96 mEq/L (98-107) L 06/30/17 13:30 Carbon Dioxide 31.0 mEq/L (21.0-31.0) 06/30/17 13:30 Anion Gap 8.6 (7.0-16.0) 06/30/17 13:30 BUN 16 mg/dL (7-25) 06/30/17 13:30 Creatinine 1.1 mg/dL (0.7-1.3) 06/30/17 13:30 Est GFR ( Amer) > 60.0 ml/min (>90) 06/30/17 13:30 Est GFR (Non-Af Amer) > 60.0 ml/min 06/30/17 13:30 BUN/Creatinine Ratio 14.5 06/30/17 13:30 Glucose 116 mg/dL (70-105) H 06/30/17 13:30 Calcium 8.9 mg/dL (8.6-10.3) 06/30/17 13:30 Total Bilirubin 0.3 mg/dL (0.3-1.0) 06/30/17 13:30 AST 45 U/L (13-39) H 06/30/17 13:30 ALT 26 U/L (7-52) 06/30/17 13:30 Alkaline Phosphatase 57 U/L (34-104) 06/30/17 13:30 Troponin I 0.01 ng/mL (0.01-0.05) 06/30/17 13:30 B-Natriuretic Peptide 24.9 pg/mL (5.0-100.0) 06/30/17 13:30 Total Protein 7.5 gm/dL (6.0-8.3) 06/30/17 13:30 Albumin 4.0 gm/dL (4.2-5.5) L 06/30/17 13:30 Globulin 3.5 gm/dL 06/30/17 13:30 Albumin/Globulin Ratio 1.1 (1.0-1.8) 06/30/17 13:30 Vancomycin Trough 13.6 ug/mL (10-20) 07/02/17 08:42 - Physical Exam Vitals and I&O: Vital Signs Temp 97.6 F 07/03/17 04:00 Pulse 78 07/03/17 04:00 Resp 17 07/03/17 04:00 BP 126/69 07/03/17 04:00 Pulse Ox 99 07/03/17 04:00 Intake & Output 07/02/17 07/03/17 07/03/17 18:59 06:59 18:59 Intake Total 250 690 Balance 250 690 Weight (lbs) 208 lb Intake: Intake, IV Amount 250 350 Levofloxacin 500mg/100mL 100 500 mg In 100 ml @ 100 mls/hr IV Q24HR [facility] Rx#: [id number] Vancomycin HCl 1 gm In 250 250 Sodium Chloride 0.9% 250 ml @ 165 mls/hr IV Q12H [facility] Rx#:[id number] Oral 340 Other: # Voids 3 # Bowel Movements 0 Active Medications: Current Medications Acetaminophen (Tylenol) 650 mg PO Q4HR PRN PRN Reason: Pain Or Fever above 101 Stop: 08/29/17 18:31 Last Admin: 06/30/17 21:03 Dose: 650 mg Al Hydrox/Mg Hydrox/Simethicone (Maalox) 30 ml PO Q4H PRN PRN Reason: GI DISTRESS Stop: 08/29/17 21:08 Albuterol Sulfate (Albuterol 2.5mg/3ml Neb Ud) 2.5 mg HHN QIDRT [facility] Stop: 08/29/17 18:31 Benztropine Mesylate (Cogentin) 1 mg PO DAILY [facility] Stop: 08/30/17 08:59 Last Admin: 07/03/17 08:51 Dose: Not Given Clonazepam (Klonopin) 1 mg PO BID [facility] PRN Reason: Protocol Stop: 08/29/17 18:31 Last Admin: 07/03/17 08:45 Dose: 1 mg Docusate Sodium (Colace) 200 mg PO BID [facility] Stop: 08/30/17 08:59 Last Admin: 07/03/17 08:43 Dose: 200 mg Furosemide (Lasix) 40 mg IVP BID [facility] Stop: 08/31/17 11:05 Last Admin: 07/02/17 17:31 Dose: 40 mg Guaifenesin (Robitussin) 200 mg PO Q4HR PRN PRN Reason: Cough or Congestion Stop: 08/29/17 18:31 Haloperidol (Haldol) 2.5 mg PO DAILY [facility] PRN Reason: Protocol Stop: 08/30/17 08:59 Last Admin: 07/03/17 08:46 Dose: 2.5 mg Levofloxacin (Levaquin Pb) 500 mg in 100 mls @ 100 mls/hr IV Q24HR [facility] Stop: 08/29/17 22:30 Last Infusion: 07/02/17 22:10 Dose: Infused Vancomycin HCl 1 gm/ Sodium (Chloride) 250 mls @ 165 mls/hr IV Q12H [facility] Stop: 08/30/17 08:59 Last Infusion: 07/03/17 06:12 Dose: Infused Ipratropium [place] (Atrovent Neb 0.5mg/2.5ml) 0.5 mg HHN QIDRT [facility] Stop: 08/29/17 18:31 Levothyroxine Sodium (Synthroid) 0.2 mg PO DAILY [facility] Stop: 08/30/17 08:59 Last Admin: 07/03/17 08:43 Dose: 0.2 mg Lorazepam (Ativan) 1 mg PO Q6H PRN; Protocol PRN Reason: Anxiety Stop: 08/29/17 18:31 Last Admin: 07/02/17 23:44 Dose: 1 mg Lorazepam (Ativan) 1 mg IV Q4HR PRN; Protocol PRN Reason: Seizure Stop: 08/29/17 18:31 Magnesium Hydroxide (Milk Of Magnesia) 30 ml PO HS PRN PRN Reason: Constipation Stop: 08/29/17 18:31 Miscellaneous (Haloperidol Decanoate [Haldol Decanoate 50]) 1 ml IM [id number] [facility] Stop: 08/29/17 18:31 Miscellaneous (Vancomycin Iv Per Pharmacy) 1 ea [facility] PRN [facility] Stop: 08/29/17 18:31 Naproxen (Naprosyn) 500 mg PO BID PRN PRN Reason: PAIN Stop: 08/29/17 18:31 Ondansetron HCl (Zofran) 4 mg IV Q8H PRN PRN Reason: Nausea / Vomiting Stop: 08/29/17 18:31 Potassium Chloride (Klor-Con) 20 meq PO DAILY [facility] Stop: 08/31/17 08:59 Last Admin: 07/03/17 08:46 Dose: 20 meq Quetiapine Fumarate (Seroquel) 100 mg PO BID [facility] PRN Reason: Protocol Stop: 08/29/17 18:31 Last Admin: 07/03/17 08:53 Dose: 100 mg Quetiapine Fumarate (Seroquel) 400 mg PO HS [facility] PRN Reason: Protocol Stop: 08/29/17 20:59 Last Admin: 07/02/17 21:10 Dose: Not Given Sodium Chloride (Saline Flush) 10 ml IV QSHIFT [facility] Stop: 08/29/17 19:59 Last Admin: 07/03/17 08:50 Dose: Not Given General: weak, disheveled, appears older HEENT: NC/AT, PERRLA, EOMI Neck: Supple, No LAD Lungs: congested Cardiovascular: RRR, Normal S1, Normal S2, without murmur Abdomen: soft, globular, distended Extremities: edema, excoriation Neurological: no change, gait stable - Procedures Procedures: Procedures Procedure Code Date EMERGENCY DEPT VISIT 50459 06/27/11 INDIVID PSYCHOTHERAP NEC 94.39 10/26/05 OTHER GROUP THERAPY 94.44 09/24/14 RECREATIONAL THERAPY 93.81 03/06/12 Internal Medicine Assmt/Plan - Assessment Assessment: Bilateral lower extremity cellulitis, hyponatremia, mild protein-calorie malnutrition, hypertension, asthma, schizophrenia and chronic obstructive pulmonary disease.fluid overload, possible chf noncompliant - Plan Plan: psych to follow up follow up labs in am continue ivabx vanco continue current plan of care
[2017-07-03] MEDS: Albuterol Nebulizer 2.5mg/3mL HHN SCH (21:04)
[2017-07-03] MEDS: Ipratropium Neb 0.5 mg/2.5 mL UD HHN SCH (21:05)
[2017-07-03] MEDS: Levofloxacin 500mg/100mL 500 MG/100 ML BAG IV SCH (21:10)
[2017-07-03] MEDS: Sulfamethoxazole/TMP 800/160mg Tab PO SCH (22:33)
[2017-07-04] MEDS: Albuterol Nebulizer 2.5mg/3mL HHN SCH ×2 (07:25→11:01)
[2017-07-04] MEDS: Ipratropium Neb 0.5 mg/2.5 mL UD HHN SCH ×2 (07:25→11:00)
--- NOTE | 2017-07-04 08:26 | Consultation ---
DATE OF CONSULTATION: 07/03/2017 The patient was seen, chart reviewed, discussed with staff. The patient is a 61-year-old male with a history of schizoaffective disorder, known to myself from treatment at this facility and prior hospitalization, has been restless, anxious at times, occasionally at times refusing medications. The patient has been wandering around the unit, requiring redirecting by staff. The patient said he does not take the Haldol pills and sometimes he is not sure if he wants to take the Seroquel. The patient denies being depressed, but admits having some anxiety. PAST PSYCHIATRIC HISTORY: Multiple hospitalizations, chronic history of schizoaffective disorder. PAST MEDICAL HISTORY: Bilateral swelling of lower extremities, no DVT on Doppler. The patient has hypothyroidism, CHF, COPD, hyperlipidemia. PSYCHOSOCIAL HISTORY: The patient resides at [facility] and requires complete care. MENTAL STATUS EXAMINATION: Speech is rapid, loud at times. Affect is dysphoric. The patient is somewhat paranoid, but denied having auditory hallucinations. He is oriented x 3. ASSESSMENT: Schizoaffective disorder. PLAN: Continue supportive measure, continue current of 100 mg p.o. b.i.d., 400 mg p.o. at bedtime. Monitor compliance. Continue Klonopin 1 mg p.o. b.i.d. The patient also on Haldol Decanoate. We will follow closely while on medical floor. Thank you for the consultation. We will use Ativan as needed for anxiety. [facility]# [id number]
[2017-07-04] MEDS ORDERED: Furosemide 40 mg/4mL UDC PO SCH (09:00)
[2017-07-04] MEDS: Potassium Chloride 20 mEq ER Tab PO SCH (10:00)
[2017-07-04] MEDS: Sulfamethoxazole/TMP 800/160mg Tab PO SCH (10:01)
[2017-07-04] MEDS: Benztropine 1 MG TAB PO SCH (11:50)
[2017-07-04] MEDS: Levothyroxine 0.1 Mg Tab PO SCH (11:50)
--- NOTE | 2017-07-04 12:04 | Internal Medicine Prog Note ---
Internal Medicine Subjective - Subjective Service Date: 07/04/17 Patient seen and examined:: with staff Patient is:: awake, verbal, interactive, ambulating, talking, agitated Patient Complaints of:: congestion, constipation Per staff patient has:: no adverse event, no episodes of fall, poor appetite, agitated, tolerating meds, refusing care Internal Medicine Objective - Results Result Diagrams: 06/30/17 13:30 06/30/17 13:30 Recent Labs: Laboratory Last Values WBC 4.2 Th/cmm (4.8-10.8) L D 06/30/17 13:30 RBC 3.74 Mil/cmm (4.30-5.70) L 06/30/17 13:30 Hgb 12.1 gm/dL (12-16) 06/30/17 13:30 Hct 35.1 % (41.0-60) L 06/30/17 13:30 MCV 93.9 fl (80-99) 06/30/17 13:30 MCH 32.3 pg (26.0-30.0) H 06/30/17 13:30 MCHC Differential 34.4 pg (28.0-36.0) 06/30/17 13:30 RDW 12.2 % (11.5-20.0) 06/30/17 13:30 Plt Count 244 Th/cmm (150-400) 06/30/17 13:30 MPV 6.7 fl 06/30/17 13:30 Neutrophils % 65.7 % (40.0-80.0) 06/30/17 13:30 Lymphocytes % 25.7 % (20.0-50.0) 06/30/17 13:30 Monocytes % 7.7 % (2.0-10.0) 06/30/17 13:30 Eosinophils % 0.3 % (0.0-5.0) 06/30/17 13:30 Basophils % 0.6 % (0.0-2.0) 06/30/17 13:30 PT 10.4 SECONDS (9.5-11.5) 06/30/17 13:30 INR 1.00 (0.5-1.4) 06/30/17 13:30 PTT (Actin FS) 31.2 SECONDS (26.0-38.0) 06/30/17 13:30 D-Dimer 547 ng/mL (100-400) H 06/30/17 13:30 Sodium 132 mEq/L (136-145) L 06/30/17 13:30 Potassium 3.6 mEq/L (3.5-5.1) 06/30/17 13:30 Chloride 96 mEq/L (98-107) L 06/30/17 13:30 Carbon Dioxide 31.0 mEq/L (21.0-31.0) 06/30/17 13:30 Anion Gap 8.6 (7.0-16.0) 06/30/17 13:30 BUN 16 mg/dL (7-25) 06/30/17 13:30 Creatinine 1.1 mg/dL (0.7-1.3) 06/30/17 13:30 Est GFR ( Amer) > 60.0 ml/min (>90) 06/30/17 13:30 Est GFR (Non-Af Amer) > 60.0 ml/min 06/30/17 13:30 BUN/Creatinine Ratio 14.5 06/30/17 13:30 Glucose 116 mg/dL (70-105) H 06/30/17 13:30 Calcium 8.9 mg/dL (8.6-10.3) 06/30/17 13:30 Total Bilirubin 0.3 mg/dL (0.3-1.0) 06/30/17 13:30 AST 45 U/L (13-39) H 06/30/17 13:30 ALT 26 U/L (7-52) 06/30/17 13:30 Alkaline Phosphatase 57 U/L (34-104) 06/30/17 13:30 Troponin I 0.01 ng/mL (0.01-0.05) 06/30/17 13:30 B-Natriuretic Peptide 24.9 pg/mL (5.0-100.0) 06/30/17 13:30 Total Protein 7.5 gm/dL (6.0-8.3) 06/30/17 13:30 Albumin 4.0 gm/dL (4.2-5.5) L 06/30/17 13:30 Globulin 3.5 gm/dL 06/30/17 13:30 Albumin/Globulin Ratio 1.1 (1.0-1.8) 06/30/17 13:30 Vancomycin Trough 13.6 ug/mL (10-20) 07/02/17 08:42 - Physical Exam Vitals and I&O: Vital Signs Temp 96.9 F 07/04/17 11:57 Pulse 76 07/04/17 11:57 Resp 18 07/04/17 11:57 BP 106/65 07/04/17 11:57 Pulse Ox 100 07/04/17 11:57 Intake & Output 07/03/17 07/04/17 07/04/17 18:59 06:59 18:59 Intake Total 250 200 Balance 250 200 Weight (lbs) 208 lb Intake: Intake, IV Amount 250 Vancomycin HCl 1 gm In 250 Sodium Chloride 0.9% 250 ml @ 165 mls/hr IV Q12H [facility] Rx#:[id number] Oral 200 Other: # Voids 2 # Bowel Movements 0 Active Medications: Current Medications Acetaminophen (Tylenol) 650 mg PO Q4HR PRN PRN Reason: Pain Or Fever above 101 Stop: 08/29/17 18:31 Last Admin: 06/30/17 21:03 Dose: 650 mg Al Hydrox/Mg Hydrox/Simethicone (Maalox) 30 ml PO Q4H PRN PRN Reason: GI DISTRESS Stop: 08/29/17 21:08 Albuterol Sulfate (Albuterol 2.5mg/3ml Neb Ud) 2.5 mg HHN QIDRT [facility] Stop: 08/29/17 18:31 Last Admin: 07/04/17 11:01 Dose: Not Given Benztropine Mesylate (Cogentin) 1 mg PO DAILY [facility] Stop: 08/30/17 08:59 Last Admin: 07/04/17 11:50 Dose: Not Given Clonazepam (Klonopin) 1 mg PO BID [facility] PRN Reason: Protocol Stop: 08/29/17 18:31 Last Admin: 07/04/17 10:01 Dose: 1 mg Docusate Sodium (Colace) 200 mg PO BID [facility] Stop: 08/30/17 08:59 Last Admin: 07/04/17 10:19 Dose: 200 mg Furosemide (Lasix) 40 mg PO BID [facility] Stop: 09/02/17 08:59 Last Admin: 07/04/17 10:04 Dose: 40 mg Guaifenesin (Robitussin) 200 mg PO Q4HR PRN PRN Reason: Cough or Congestion Stop: 08/29/17 18:31 Levofloxacin (Levaquin Pb) 500 mg in 100 mls @ 100 mls/hr IV Q24HR [facility] Stop: 08/29/17 22:30 Last Admin: 07/03/17 21:10 Dose: Not Given Vancomycin HCl 1 gm/ Sodium (Chloride) 250 mls @ 165 mls/hr IV Q12H [facility] Stop: 08/30/17 08:59 Last Admin: 07/04/17 11:50 Dose: Not Given Ipratropium [place] (Atrovent Neb 0.5mg/2.5ml) 0.5 mg HHN QIDRT [facility] Stop: 08/29/17 18:31 Last Admin: 07/04/17 11:00 Dose: Not Given Levothyroxine Sodium (Synthroid) 0.2 mg PO DAILY [facility] Stop: 08/30/17 08:59 Last Admin: 07/04/17 11:50 Dose: Not Given Lorazepam (Ativan) 1 mg PO Q6H PRN; Protocol PRN Reason: Anxiety Stop: 08/29/17 18:31 Last Admin: 07/03/17 10:56 Dose: 1 mg Lorazepam (Ativan) 1 mg IV Q4HR PRN; Protocol PRN Reason: Seizure Stop: 08/29/17 18:31 Magnesium Hydroxide (Milk Of Magnesia) 30 ml PO HS PRN PRN Reason: Constipation Stop: 08/29/17 18:31 Miscellaneous (Haloperidol Decanoate [Haldol Decanoate 50]) 1 ml IM [id number] [facility] Stop: 08/29/17 18:31 Miscellaneous (Vancomycin Iv Per Pharmacy) 1 ea MC PRN [facility] Stop: 08/29/17 18:31 Naproxen (Naprosyn) 500 mg PO BID PRN PRN Reason: PAIN Stop: 08/29/17 18:31 Ondansetron HCl (Zofran) 4 mg IV Q8H PRN PRN Reason: Nausea / Vomiting Stop: 08/29/17 18:31 Potassium Chloride (Klor-Con) 20 meq PO DAILY [facility] Stop: 08/31/17 08:59 Last Admin: 07/04/17 10:00 Dose: 20 meq Quetiapine Fumarate (Seroquel) 100 mg PO BID [facility] PRN Reason: Protocol Stop: 04/10/18 18:31 Last Admin: 07/04/17 10:00 Dose: 100 mg Quetiapine Fumarate (Seroquel) 400 mg PO HS [facility] PRN Reason: Protocol Stop: 08/29/17 20:59 Last Admin: 07/03/17 21:10 Dose: Not Given Sodium Chloride (Saline Flush) 10 ml IV QSHIFT [facility] Stop: 08/29/17 19:59 Last Admin: 07/04/17 11:49 Dose: Not Given Temazepam (Restoril) 15 mg PO HS PRN; Protocol PRN Reason: Insomnia Stop: 09/01/17 12:01 Last Admin: 07/03/17 22:32 Dose: 15 mg Trimethoprim/Sulfamethoxazole (Bactrim Ds) 1 tab PO BID [facility] Stop: 09/01/17 21:29 Last Admin: 07/04/17 10:01 Dose: 1 tab General: weak, disheveled, appears older HEENT: NC/AT, PERRLA, EOMI Neck: Supple, No LAD Lungs: congested Cardiovascular: RRR, Normal S1, Normal S2, without murmur Abdomen: soft, globular, distended Extremities: edema, excoriation Neurological: no change, gait stable - Procedures Procedures: Procedures Procedure Code Date EMERGENCY DEPT VISIT 41430 06/27/11 INDIVID PSYCHOTHERAP NEC 94.39 10/26/05 OTHER GROUP THERAPY 94.44 09/24/14 RECREATIONAL THERAPY 93.81 03/06/12 Internal Medicine Assmt/Plan - Assessment Assessment: Bilateral lower extremity cellulitis, hyponatremia, mild protein-calorie malnutrition, hypertension, asthma, schizophrenia and chronic obstructive pulmonary disease.fluid overload, possible chf noncompliant - Plan Plan: psych to follow up follow up labs in am continue ivabx vanco continue current plan of care
--- NOTE | 2017-09-08 01:17 | Discharge Summary ---
DATE OF DISCHARGE: 07/04/2017 DISCHARGE DIAGNOSES: Bilateral lower extremity cellulitis, hyponatremia, mild protein-calorie malnutrition, hypertension, asthma, schizophrenia, chronic obstructive pulmonary disease. HISTORY OF PRESENT ILLNESS: A 61-year-old male well known to me from [facility]. Last week the patient started to develop pitting edema +2. The patient was given a dose of Lasix 40 mg for 3 days. Despite of being on Lasix the patient's edema started to worsen. The patient's bilateral lower extremities started to have warmth and redness. For this reason, the patient was admitted to the med/surg unit. PHYSICAL EXAMINATION: GENERAL: The patient is well-developed, well-nourished, no acute distress. VITAL SIGNS: Stable. HEENT: Normocephalic, atraumatic. NECK: Supple. No mass. LUNGS: Clear bilaterally. ABDOMEN: Soft, nontender. HOSPITAL COURSE: During the hospital stay, the patient was admitted to the med/surg unit. The patient was kept on IV antibiotics of vancomycin and a psychiatrist was also on the case. This patient has been noncompliant during the hospital stay. The patient was receiving IV antibiotics Despite of being on a few doses of IV antibiotics the patient's redness of bilateral lower extremity has improved. The patient's WBC was within normal limits. The patient also had a bilateral lower extremity ultrasound done and was negative for any DVT. For this reason, the patient was stable for discharge. CONDITION UPON DISCHARGE: Fair. DISPOSITION: [facility]. PSYCHIATRIC# [id number]
== END 2017-07-04 16:17 | disposition home or self-care (01) | DRG 603 ==
LOC: ER 13:07 → MSI 16:20
PROVIDERS: ADMIT Internal Medicine; ATTEND Internal Medicine
DX: L03.116 Cellulitis of left lower limb (principal); I11.0 Hypertensive heart disease with heart failure; E44.1 Mild protein-calorie malnutrition; I50.9 Heart failure, unspecified; E87.1 Hypo-osmolality and hyponatremia; E87.70 Fluid overload, unspecified; L03.115 Cellulitis of right lower limb; J44.9 Chronic obstructive pulmonary disease, unspecified; E03.9 Hypothyroidism, unspecified; E78.5 Hyperlipidemia, unspecified; D64.9 Anemia, unspecified; F25.9 Schizoaffective disorder, unspecified; Z68.29 Body mass index [BMI] 29.0-29.9, adult; Z88.0 Allergy status to penicillin
CPT/HCPCS: 36415-UA; 71045-TC; 80053-TC; 80202-TC; 83880-TC; 84484-TC; 85025-TC; 85379-TC; 85610-TC; 90779; 93005; 93970-TC-50; J1940; J1956; J3370; J7030; J7040; J7613; Z7610

== ENCOUNTER 2017-09-15 11:30 | Inpatient (IN) | payer MEDICARE, BC, MEDICAID ==
--- NOTE | 2017-09-15 12:12 | ED Physician Chart ---
ED Chief Complaint/HPI - Patient Information Date Seen:: 09/15/17 Time Seen:: 12:07 Chief Complaint:: Increased agitation History of Present Illness:: 62 yo male was brought from [facility] to ER for evaluation of increased agitation and aggressiveness. Patient was admitted to geropsy unit before. Allergies:: Allergies Allergy/AdvReac Type Severity Reaction Status Date / Time penicillinase Allergy Verified 05/18/17 11:53 Penicillins Allergy Verified 06/12/17 16:38 Vitals:: Vital Signs - 8 hr 09/15/17 11:44 Temp 98 F HR 79 RR 16 BP 124/70 O2 Sat % 98 ED Review of Systems - Review of Systems General/Constitutional: No fever Skin: No bruising Head: No headache Eyes: No pain ENT: No earache Neck: No neck pain Cardio Vascular: No chest pain Pulmonary: No SOB GI: No nausea, No vomiting Musculoskeletal: No bone or joint pain Psychiatric: Prior psych history Neurological: No focal symptoms ED Past Medical History - Past Medical History Past Medical History: HTN, Asthma/COPD, Dyslipidemia, Thyroid disorder, Other ( cellulitis) Social History: Smoker, No Alcohol, No Drug Use Surgical History: other (tonsillectomy) Psychiatricy History: Other (Schizoaffective disorder, anxiety, psychosis) Family Medical History - Family Member Mother History Unknown: Yes ED Physical Exam - Physical Examination General/Constitutional: Awake Head: Atraumatic Eyes: PERRL Skin: No ecchymosis ENMT: Nasal exam nl Neck: No nuchal rigidity Respiratory: Clear to Auscultation Cardio Vascular: RRR, No murmur, gallop, rubs, NL S1 S2 GI: No tenderness/rebounding/guarding Extremities: normal strength in all extremities Neuro/Psych: Alert/oriented (Oriented to self and place) ED Labs/Radiology/EKG Results - Radiology Results Results: CXR: no focal consolidation ED Assessment - Assessment General Assessment: Psychosis Hypothyroidism Assessment/Comments:: CBC, CMP, TSH CXR, EKG Cleared for geropsych admission ED Septic Shock - . Is Septic Shock (SBP<90, OR Lactate>4 mmol\L) present?: No - <6hrs of presentation: Vital Signs: Vital Signs - 8 hr 09/15/17 11:44 Temp 98 F HR 79 RR 16 BP 124/70 O2 Sat % 98 ED Reassessment (Disposition) - Reassessment Reassessment Condition:: Unchanged - Patient Disposition Discharge/Transfer:: [facility] Admitting Psych Physician:: Markus Rivera ED Discharge Plan - Patient Disposition Admit/Discharge/Transfer: XFR/INPATIENT REHAB FAC Condition at Disposition: Stable
[2017-09-15 12:35] LABS: % BASOPHILS 0.2 % (0.0-2.0); % EOSINOPHILS 0.1 % (0.0-5.0); % LYMPHOCYTES 26.1 % (20.0-50.0); % MONOCYTES 8.8 % (2.0-10.0); % NEUTROPHILS 64.8 % (40.0-80.0); HEMOGLOBIN 13.6 gm/dL (12-16); LYMPHOCYTE ABSOLUTE 1.2 Th/cmm (1.5-3.0); MEAN CELL VOLUME 91.8 fl (80-99); MEAN CORPUSCULAR HEMOGLOBIN 31.1 pg (26.0-30.0); MEAN CORPUSCULAR HGB CONC 33.9 pg (28.0-36.0); MEAN PLATELET VOLUME 7.3 fl; MONOCYTE ABSOLUTE 0.4 Th/cmm (0.3-1.0); PLATELET COUNT 195 Th/cmm (150-400); RED BLOOD COUNT 4.36 Mil/cmm (4.30-5.70); RED CELL DISTRIBUTION WIDTH 12.6 % (11.5-20.0); WHITE BLOOD COUNT 4.6 Th/cmm (4.8-10.8)
[2017-09-15 12:53] LABS: ALB/GLOB RATIO 1.1 (1.0-1.8); ALKALINE PHOSPHATASE 60 U/L (34-104); ANION GAP 10.1 (7.0-16.0); BILIRUBIN,TOTAL 0.4 mg/dL (0.3-1.0); BUN - UREA NITROGEN 16 mg/dL (7-25); CARBON DIOXIDE 28.6 mEq/L (21.0-31.0); CHLORIDE 98 mEq/L (98-107); CREATININE - SERUM 0.9 mg/dL (0.7-1.3); GFR AFRICAN-AMERICAN > 60.0 ml/min (>90); GFR NON AFRICAN-AMERICAN > 60.0 ml/min; GLUCOSE 70 mg/dL (70-105); MAGNESIUM 2.1 mg/dL (1.9-2.7); POTASSIUM SERUM 3.7 mEq/L (3.5-5.1); SGOT 33 U/L (13-39); SGPT/ALT 20 U/L (7-52); SODIUM SERUM 133 mEq/L (136-145); TOTAL PROTEIN,SERUM 7.6 gm/dL (6.0-8.3)
--- NOTE | 2017-09-15 13:04 | Diagnostic Imaging Report ---
Portable chest x-ray History: Cough Allowing for portable technique the heart size is normal. No focal pulmonary parenchymal processes. No hilar or mediastinal abnormalities. Impression: No acute abnormalities.
[2017-09-15 13:25] LABS: URINE MICROSCOPIC INDICATED? YES; URINE SOURCE RANDOM
[2017-09-15 13:26] LABS: URINE BILIRUBIN NEGATIVE (NEGATIVE); URINE BLOOD NEGATIVE (NEGATIVE); URINE GLUCOSE (UA) NEGATIVE (NEGATIVE); URINE KETONE NEGATIVE (NEGATIVE); URINE LEUKOCYTE ESTERASE NEGATIVE (NEGATIVE); URINE NITRATE NEGATIVE (NEGATIVE); URINE PROTEIN NEGATIVE (NEGATIVE); URINE UROBILINOGEN 0.2 E.U./dL (0.2 - 1.0)
[2017-09-15 13:27] LABS: URINE CLARITY CLEAR (CLEAR); URINE COLOR YELLOW
[2017-09-15 13:32] LABS: URINE BACTERIA OCCASIONAL /hpf (NONE SEEN); URINE EPITHELIAL CELLS FEW /lpf (FEW); URINE RBC 0-2 /hpf (0-5); URINE WBC 0-2 /hpf (0-5)
[2017-09-15 18:26] VITALS: BP 121/62
--- NOTE | 2017-09-16 00:57 | Psychosocial Evaluation ---
DATE OF SERVICE: 09/15/2017 IDENTIFYING DATA: The patient is a 62-year-old male, resident of [facility]. Information obtained by directly interviewing the patient as well as reviewing the admission paper. JUSTIFICATION FOR HOSPITALIZATION: The patient is admitted here on a voluntary basis in view of his acute mood swings and aggressive behavior towards the staff and other patients. CHIEF COMPLAINT: "I don't care, I need to see my doctor right away." HISTORY OF PRESENT ILLNESS: This is one of multiple psychiatric hospitalizations for this patient who has been diagnosed to have schizoaffective disorder and is reported to have been noncompliant with the medication and has been very aggressive towards the staff as well as the residents and hence the patient has to be referred over here. PAST PSYCHIATRIC HISTORY: Please refer to the above. The patient was hospitalized on multiple occasions. MEDICAL HISTORY AND PHYSICAL EXAMINATION: Requested to be done by Dr. Ng. SUBSTANCE ABUSE HISTORY: None. PHYSICAL OR SEXUAL ABUSE HISTORY: None. LEGAL PROBLEMS: None at this time. STRENGTH AND ASSETS: The patient is motivated. MENTAL STATUS EXAMINATION: The patient is a 62-year-old, looking his stated age, superficially cooperative. Eye contact is poor. The patient is screaming and yelling and gets easily irritable and angry. The patient's insight and judgment at this time are noted to be very much impaired. Impulse control seems to be poor. Coping skills are also noted to be poor. The patient has been not able to contract for safety. The patient tested limits constantly and is so fixated on the Klonopin and Seroquel. The patient has no insight into his illness. DIAGNOSTIC IMPRESSION: AXIS I: Schizoaffective disorder. AXIS II: None. AXIS III: As per Dr. Ng. IMMEDIATE TREATMENT PLAN: The patient is going to be observed on inpatient unit, provided with supportive psychotherapy. The patient is going to be closely monitored. Once stabilized, the patient is going to be discharged to [facility] to be followed up on an outpatient basis. JOB# [id number]
[2017-09-16] MEDS: Levothyroxine 0.1 Mg Tab PO SCH (06:44)
[2017-09-16] MEDS: Furosemide 40 mg/4mL UDC PO SCH ×2 (08:26→08:31)
[2017-09-16] MEDS: Potassium Chloride 10 mEq ER Tab PO SCH ×2 (08:26→08:31)
[2017-09-16] MEDS ORDERED: Benztropine 1 MG TAB PO SCH (09:00)
--- NOTE | 2017-09-16 14:03 | Internal Medicine Prog Note ---
Internal Medicine Subjective - Subjective Service Date: 09/16/17 ([facility] [id number] [facility]) Internal Medicine Objective - Results Result Diagrams: 09/15/17 12:30 09/15/17 12:30 Recent Labs: Laboratory Last Values WBC 4.6 Th/cmm (4.8-10.8) L 09/15/17 12:30 RBC 4.36 Mil/cmm (4.30-5.70) 09/15/17 12:30 Hgb 13.6 gm/dL (12-16) 09/15/17 12:30 Hct 40.0 % (41.0-60) L 09/15/17 12:30 MCV 91.8 fl (80-99) 09/15/17 12:30 MCH 31.1 pg (26.0-30.0) H 09/15/17 12:30 MCHC Differential 33.9 pg (28.0-36.0) 09/15/17 12:30 RDW 12.6 % (11.5-20.0) 09/15/17 12:30 Plt Count 195 Th/cmm (150-400) 09/15/17 12:30 MPV 7.3 fl 09/15/17 12:30 Neutrophils % 64.8 % (40.0-80.0) 09/15/17 12:30 Lymphocytes % 26.1 % (20.0-50.0) 09/15/17 12:30 Monocytes % 8.8 % (2.0-10.0) 09/15/17 12:30 Eosinophils % 0.1 % (0.0-5.0) 09/15/17 12:30 Basophils % 0.2 % (0.0-2.0) 09/15/17 12:30 Sodium 133 mEq/L (136-145) L 09/15/17 12:30 Potassium 3.7 mEq/L (3.5-5.1) 09/15/17 12:30 Chloride 98 mEq/L (98-107) 09/15/17 12:30 Carbon Dioxide 28.6 mEq/L (21.0-31.0) 09/15/17 12:30 Anion Gap 10.1 (7.0-16.0) 09/15/17 12:30 BUN 16 mg/dL (7-25) 09/15/17 12:30 Creatinine 0.9 mg/dL (0.7-1.3) 09/15/17 12:30 Est GFR ( Amer) > 60.0 ml/min (>90) 09/15/17 12:30 Est GFR (Non-Af Amer) > 60.0 ml/min 09/15/17 12:30 BUN/Creatinine Ratio 17.8 09/15/17 12:30 Glucose 70 mg/dL (70-105) 09/15/17 12:30 Calcium 9.0 mg/dL (8.6-10.3) 09/15/17 12:30 Magnesium 2.1 mg/dL (1.9-2.7) 09/15/17 12:30 Total Bilirubin 0.4 mg/dL (0.3-1.0) 09/15/17 12:30 AST 33 U/L (13-39) 09/15/17 12:30 ALT 20 U/L (7-52) 09/15/17 12:30 Alkaline Phosphatase 60 U/L (34-104) 09/15/17 12:30 Total Protein 7.6 gm/dL (6.0-8.3) 09/15/17 12:30 Albumin 4.0 gm/dL (4.2-5.5) L 09/15/17 12:30 Globulin 3.6 gm/dL 09/15/17 12:30 Albumin/Globulin Ratio 1.1 (1.0-1.8) 09/15/17 12:30 TSH > 100.00 uIU/ml (0.34-5.60) H 09/15/17 12:30 Urine Source RANDOM 09/15/17 12:57 Urine Color YELLOW 09/15/17 12:57 Urine Clarity CLEAR (CLEAR) 09/15/17 12:57 Urine pH 7.0 (4.6 - 8.0) 09/15/17 12:57 Ur Specific [place] <= 1.005 (1.005-1.030) 09/15/17 12:57 Urine Protein NEGATIVE mg/dL (NEGATIVE) 09/15/17 12:57 Urine Glucose (UA) NEGATIVE mg/dL (NEGATIVE) 09/15/17 12:57 Urine Ketones NEGATIVE mg/dL (NEGATIVE) 09/15/17 12:57 Urine Blood NEGATIVE (NEGATIVE) 09/15/17 12:57 Urine Nitrate NEGATIVE (NEGATIVE) 09/15/17 12:57 Urine Bilirubin NEGATIVE (NEGATIVE) 09/15/17 12:57 Urine Urobilinogen 0.2 E.U./dL (0.2 - 1.0) 09/15/17 12:57 Ur Leukocyte Esterase NEGATIVE (NEGATIVE) 09/15/17 12:57 Urine RBC 0-2 /hpf (0-5) H 09/15/17 12:57 Urine WBC 0-2 /hpf (0-5) 09/15/17 12:57 Ur Epithelial Cells FEW /lpf (FEW) 09/15/17 12:57 Urine Bacteria OCCASIONAL /hpf (NONE SEEN) 09/15/17 12:57 - Physical Exam Vitals and I&O: Vital Signs Temp 97.6 F 09/16/17 08:00 Pulse 73 09/16/17 08:00 Resp 20 09/16/17 08:00 BP 111/61 09/16/17 08:31 Pulse Ox 98 09/16/17 08:00 Intake & Output 09/15/17 09/16/17 09/16/17 18:59 06:59 18:59 Intake Total 420 240 Balance 420 240 Intake: Oral 420 240 Other: # Voids 1 1 Stool Characteristics Formed Formed Active Medications: Current Medications Clonazepam (Klonopin) 0.5 mg PO TID PRN; Protocol PRN Reason: Anxiety Stop: 11/15/17 13:59 Docusate Sodium (Colace) 200 mg PO DAILY STEFFANIE Stop: 11/15/17 08:59 Last Admin: 09/16/17 08:25 Dose: 200 mg Furosemide (Lasix) 40 mg PO DAILY STEFFANIE Stop: 11/15/17 08:59 Last Admin: 09/16/17 08:31 Dose: Not Given Levothyroxine Sodium (Synthroid) 0.2 mg PO QDAC STEFFANIE Stop: 11/15/17 07:29 Last Admin: 09/16/17 06:44 Dose: Not Given Lorazepam (Ativan) 0.5 mg PO Q4HR PRN; Protocol PRN Reason: Anxiety Stop: 10/15/17 20:20 Last Admin: 09/16/17 13:53 Dose: 0.5 mg Potassium Chloride (Klor-Con) 10 meq PO DAILY STEFFANIE Stop: 11/15/17 08:59 Last Admin: 09/16/17 08:31 Dose: Not Given Quetiapine Fumarate (Seroquel) 100 mg PO BID STEFFANIE PRN Reason: Protocol Stop: 11/15/17 08:59 Last Admin: 09/16/17 08:25 Dose: 100 mg Quetiapine Fumarate (Seroquel) 300 mg PO HS STEFFANIE PRN Reason: Protocol Stop: 11/15/17 20:59 Zolpidem Tartrate (Ambien) 5 mg PO HS PRN PRN Reason: Insomnia Stop: 11/14/17 20:20 Last Admin: 09/15/17 21:09 Dose: 5 mg - Procedures Procedures: Procedures Procedure Code Date EMERGENCY DEPT VISIT 11016 06/27/11 INDIVID PSYCHOTHERAP NEC 94.39 10/26/05 OTHER GROUP THERAPY 94.44 09/24/14 RECREATIONAL THERAPY 93.81 03/06/12 Internal Medicine Assmt/Plan - Assessment Assessment: AGITATION COPD HTN ASTHMA DYSLIPIDEMIA HYPOTHYROIDISM
--- NOTE | 2017-09-16 15:13 | History & Physical ---
ADMIT DATE: 09/16/[address] Nino Ng. CHIEF COMPLAINT: Agitation. HISTORY OF PRESENT ILLNESS: This is a 62-year-old male who is well known to me from [facility], who was admitted here to the Geropsych Unit due to increase of agitation and aggressiveness towards nursing staff. PAST MEDICAL HISTORY: Hypertension, asthma, COPD, dyslipidemia, schizoaffective disorder, hypothyroidism. PAST SURGICAL HISTORY: Tonsillectomy. SOCIAL HISTORY: The patient is a [facility] resident, requiring 24-hour nursing care. ALLERGIES: To PENICILLIN. FAMILY HISTORY: Noncontributory. REVIEW OF SYSTEMS: GENERAL: Denies any fevers and chills. CARDIOVASCULAR: Denies chest pain. RESPIRATORY: Denies shortness of breath. GASTROINTESTINAL: Denies nausea, vomiting, abdominal pain. GENITOURINARY: Denies increased frequency, dysuria. NEUROLOGIC: No headaches, seizures, or syncope. All other systems are reviewed and are negative. PHYSICAL EXAMINATION: GENERAL: The patient is well developed, well nourished, no acute distress. VITAL SIGNS: Temperature 97.6, heart rate 73, blood pressure 111/61, respirations 20, O2 98%. HEENT: Head; normocephalic, atraumatic. NECK: Supple. No mass. LUNGS: Clear bilaterally. HEART: Regular rate and rhythm. ABDOMEN: Soft, nontender. LABORATORY DATA: WBC 4.6, H and H 13.6 and 40.0, platelet of 195. Sodium 132, potassium 3.7, chloride 98, BUN of 16, creatinine 0.9. DIAGNOSTICS: The patient had a chest x-ray done in the ER and the impression is no acute abnormalities. ASSESSMENT: Agitation, hypertension, asthma, chronic obstructive pulmonary disease, dyslipidemia, schizoaffective disorder, hypothyroidism. PLAN: We will adjust patient's blood pressure medications accordingly. Smoking cessation will be advised. Continue [facility] medications. We will continue to follow this patient. JOB# [id number]
--- NOTE | 2017-09-17 00:26 | Progress Notes ---
DATE: 09/16/2017 SUBJECTIVE: Staff was spoken to. The patient is interviewed. Mood is noted to be irritable. Affect is constricted. Insight and judgment at this time, may be impaired. Impulse control is noted to be poor. Coping skills are also noted to be very poor. The patient is insisting that he has been taking the Seroquel 400 mg at bedtime and it has been too much and he states that he needs to be on 300 mg at bedtime and patient is stating that he also tells me that he needs to be on Klonopin rather than Ativan. The patient is very much in demanding. ASSESSMENT: The patient is still having the mood swings and impulsivity and irritability. PLAN: To continue the patient with the supportive therapy. Encouraged the patient to verbalize the concerns rather than to act out. The patient's behavior is a major concern at this time and hence he is not ready to be discharged to a lower level of care. [facility]# [id number]
[2017-09-17] MEDS: Levothyroxine 0.1 Mg Tab PO SCH (06:33)
[2017-09-17] MEDS: Furosemide 40 mg/4mL UDC PO SCH (08:20)
[2017-09-17] MEDS: Potassium Chloride 10 mEq ER Tab PO SCH (08:20)
--- NOTE | 2017-09-17 15:55 | Internal Medicine Prog Note ---
Internal Medicine Subjective - Subjective Service Date: 09/17/17 (patient has been refusing to take lasix and potassium he states he does not want to take it) Patient seen and examined:: with staff Patient is:: awake Per staff patient has:: tolerating meds Internal Medicine Objective - Results Result Diagrams: 09/15/17 12:30 09/15/17 12:30 Recent Labs: Laboratory Last Values WBC 4.6 Th/cmm (4.8-10.8) L 09/15/17 12:30 RBC 4.36 Mil/cmm (4.30-5.70) 09/15/17 12:30 Hgb 13.6 gm/dL (12-16) 09/15/17 12:30 Hct 40.0 % (41.0-60) L 09/15/17 12:30 MCV 91.8 fl (80-99) 09/15/17 12:30 MCH 31.1 pg (26.0-30.0) H 09/15/17 12:30 MCHC Differential 33.9 pg (28.0-36.0) 09/15/17 12:30 RDW 12.6 % (11.5-20.0) 09/15/17 12:30 Plt Count 195 Th/cmm (150-400) 09/15/17 12:30 MPV 7.3 fl 09/15/17 12:30 Neutrophils % 64.8 % (40.0-80.0) 09/15/17 12:30 Lymphocytes % 26.1 % (20.0-50.0) 09/15/17 12:30 Monocytes % 8.8 % (2.0-10.0) 09/15/17 12:30 Eosinophils % 0.1 % (0.0-5.0) 09/15/17 12:30 Basophils % 0.2 % (0.0-2.0) 09/15/17 12:30 Sodium 133 mEq/L (136-145) L 09/15/17 12:30 Potassium 3.7 mEq/L (3.5-5.1) 09/15/17 12:30 Chloride 98 mEq/L (98-107) 09/15/17 12:30 Carbon Dioxide 28.6 mEq/L (21.0-31.0) 09/15/17 12:30 Anion Gap 10.1 (7.0-16.0) 09/15/17 12:30 BUN 16 mg/dL (7-25) 09/15/17 12:30 Creatinine 0.9 mg/dL (0.7-1.3) 09/15/17 12:30 Est GFR ( Amer) > 60.0 ml/min (>90) 09/15/17 12:30 Est GFR (Non-Af Amer) > 60.0 ml/min 09/15/17 12:30 BUN/Creatinine Ratio 17.8 09/15/17 12:30 Glucose 70 mg/dL (70-105) 09/15/17 12:30 Calcium 9.0 mg/dL (8.6-10.3) 09/15/17 12:30 Magnesium 2.1 mg/dL (1.9-2.7) 09/15/17 12:30 Total Bilirubin 0.4 mg/dL (0.3-1.0) 09/15/17 12:30 AST 33 U/L (13-39) 09/15/17 12:30 ALT 20 U/L (7-52) 09/15/17 12:30 Alkaline Phosphatase 60 U/L (34-104) 09/15/17 12:30 Total Protein 7.6 gm/dL (6.0-8.3) 09/15/17 12:30 Albumin 4.0 gm/dL (4.2-5.5) L 09/15/17 12:30 Globulin 3.6 gm/dL 09/15/17 12:30 Albumin/Globulin Ratio 1.1 (1.0-1.8) 09/15/17 12:30 TSH > 100.00 uIU/ml (0.34-5.60) H 09/15/17 12:30 Urine Source RANDOM 09/15/17 12:57 Urine Color YELLOW 09/15/17 12:57 Urine Clarity CLEAR (CLEAR) 09/15/17 12:57 Urine pH 7.0 (4.6 - 8.0) 09/15/17 12:57 Ur Specific [place] <= 1.005 (1.005-1.030) 09/15/17 12:57 Urine Protein NEGATIVE mg/dL (NEGATIVE) 09/15/17 12:57 Urine Glucose (UA) NEGATIVE mg/dL (NEGATIVE) 09/15/17 12:57 Urine Ketones NEGATIVE mg/dL (NEGATIVE) 09/15/17 12:57 Urine Blood NEGATIVE (NEGATIVE) 09/15/17 12:57 Urine Nitrate NEGATIVE (NEGATIVE) 09/15/17 12:57 Urine Bilirubin NEGATIVE (NEGATIVE) 09/15/17 12:57 Urine Urobilinogen 0.2 E.U./dL (0.2 - 1.0) 09/15/17 12:57 Ur Leukocyte Esterase NEGATIVE (NEGATIVE) 09/15/17 12:57 Urine RBC 0-2 /hpf (0-5) H 09/15/17 12:57 Urine WBC 0-2 /hpf (0-5) 09/15/17 12:57 Ur Epithelial Cells FEW /lpf (FEW) 09/15/17 12:57 Urine Bacteria OCCASIONAL /hpf (NONE SEEN) 09/15/17 12:57 - Physical Exam Vitals and I&O: Vital Signs Temp 97.8 F 09/17/17 15:06 Pulse 76 09/17/17 15:06 Resp 20 09/17/17 15:06 BP 128/82 09/17/17 15:06 Pulse Ox 97 09/17/17 15:06 Intake & Output 09/16/17 09/17/17 09/17/17 18:59 06:59 18:59 Intake Total 2540 480 Balance 2540 480 Intake: Oral 2540 480 Other: # Voids 3 1 # Bowel Movements 1 Stool Characteristics Formed Formed Active Medications: Current Medications Clonazepam (Klonopin) 0.5 mg PO TID PRN; Protocol PRN Reason: Anxiety Stop: 11/15/17 13:59 Last Admin: 09/17/17 08:28 Dose: 0.5 mg Docusate Sodium (Colace) 250 mg PO BID STEFFANIE Stop: 11/15/17 16:59 Last Admin: 09/17/17 08:19 Dose: 250 mg Furosemide (Lasix) 40 mg PO DAILY STEFFANIE Stop: 11/15/17 08:59 Last Admin: 09/17/17 08:20 Dose: Not Given Levothyroxine Sodium (Synthroid) 0.2 mg PO QDAC STEFFANIE Stop: 11/15/17 07:29 Last Admin: 09/17/17 06:33 Dose: Not Given Lorazepam (Ativan) 0.5 mg PO Q4HR PRN; Protocol PRN Reason: Anxiety Stop: 10/15/17 20:20 Last Admin: 09/17/17 15:08 Dose: 0.5 mg Potassium Chloride (Klor-Con) 10 meq PO DAILY STEFFANIE Stop: 11/15/17 08:59 Last Admin: 09/17/17 08:20 Dose: 10 meq Quetiapine Fumarate (Seroquel) 100 mg PO BID STEFFANIE PRN Reason: Protocol Stop: 11/15/17 08:59 Last Admin: 09/17/17 08:19 Dose: 100 mg Quetiapine Fumarate (Seroquel) 300 mg PO HS STEFFANIE PRN Reason: Protocol Stop: 11/15/17 20:59 Last Admin: 09/16/17 21:02 Dose: 300 mg Zolpidem Tartrate (Ambien) 5 mg PO HS PRN PRN Reason: Insomnia Stop: 11/14/17 20:20 Last Admin: 09/15/17 21:09 Dose: 5 mg General: alert HEENT: NC/AT, PERRLA Neck: Supple Lungs: CTAB Cardiovascular: RRR, without murmur Abdomen: soft, non-tender, non-distended, positive bowel sound - Procedures Procedures: Procedures Procedure Code Date EMERGENCY DEPT VISIT 12071 06/27/11 INDIVID PSYCHOTHERAP NEC 94.39 10/26/05 OTHER GROUP THERAPY 94.44 09/24/14 RECREATIONAL THERAPY 93.81 03/06/12 Internal Medicine Assmt/Plan - Assessment Assessment: AGITATION COPD HTN ASTHMA DYSLIPIDEMIA HYPOTHYROIDISM - Plan Plan: dc lasix/potassium since patient has been refusing, i have explained to patient importance of taking patient still refuses continue current plan of care
--- NOTE | 2017-09-17 21:58 | Progress Notes ---
DATE: 09/17/2017 PSYCHIATRIC PROGRESS NOTE SUBJECTIVE: Staff was spoken to. The patient is interviewed. Mood is noted to be irritable. Affect is constricted. The patient is very demanding and has been verbally abusive towards the staff members. The patient needs to be closely monitored and redirected. The patient has no insight into his illness. The patient is currently on Seroquel and the patient however has been fixated on the Klonopin 1 mg twice a day. The patient's insight and judgment at this time are noted to be still impaired. ASSESSMENT: The patient is still psychotic. PLAN: To continue the patient with the Seroquel and follow the patient with supportive therapy. The patient is not ready to be discharged to a lower level of care because of his impulsive behavior. [facility]# [id number]
--- NOTE | 2017-09-18 04:36 | Consultation ---
DATE OF CONSULTATION: 09/16/2017 REFERRING PHYSICIAN: Laura Hoover MD. TYPE OF CONSULTATION: Psychology. HISTORY OF PRESENT ILLNESS: The patient is a 62-year-old male. The patient is a resident of [facility]. The patient is known to this creative writer from previous hospitalizations here on the geropsychiatric unit. The patient is being admitted due to acute mood swings as well as aggressive behavior towards staff and other residents at his facility. The following is by review of the medical record and by patient's self report. According to record review, the staff at the patient's facility report that he has been noncompliant with medication and had become aggressive towards the staff as well as other residents and was unredirectable. Therefore, he was referred here for stabilization. The patient denied any suicidal or homicidal ideation, plan or intention. The patient reported that he did not care to participate in the clinical interview; however, the patient did respond to some of the clinical questions. PAST MEDICAL HISTORY: Please see history and physical by Dr. Ng. PAST PSYCHIATRIC HISTORY: The patient has had multiple previous hospitalizations. The patient is under the care of Dr. Rivera at [facility]. The patient has a history of schizoaffective disorder. SUBSTANCE ABUSE HISTORY: None. The patient denied any history. PSYCHOSOCIAL HISTORY: The patient did not answer questions about occupational or educational history or confucianism affiliation. The patient denied any history of physical or sexual abuse. The patient denied any current legal problems. MENTAL STATUS EXAMINATION: The patient appears to be his stated age. The patient's attitude is guarded, but superficially cooperative at times. Eye contact is poor. Speech is pressured. The patient is yelling and is easily agitated. Mood is irritable and angry. Affect is animated and mood congruent. Thought process shows to be tangential as well as challenging and argumentative. The patient has been testing the limits of the staff here on the geropsychiatric unit. The patient denies any auditory or visual hallucinations. There is some evidence of possible paranoid ideation. Impulse control is inadequate. Concentration is poor. The patient's sensorium is alert and oriented to person and place. The patient did not participate in the memory assessment. The patient did not participate in the interpretation of proverbs. Insight is impaired. Judgment is impaired. DIAGNOSTIC IMPRESSION: AXIS I: History of schizoaffective disorder. AXIS II: Deferred. AXIS III: Per Dr. Ng. TREATMENT PLAN: The patient has been seen by Dr. Hoover for psychiatric evaluation and for the management of the patient's psychotropic medications. We will provide supportive psychotherapy to include a de-escalation skill to reduce the patient's verbal outbursts. We will provide anger management as well for the same recommended treatment goal. We will provide reality testing, reality orientation and reality integration. We will provide coping strategies for chronic long-term severe mental illness. We will provide motivational enhancement for the patient to become compliant and stay compliant with all aspects of his care and treatment. We will continue supportive therapy and include limit setting and model the appropriate behavioral and verbal interaction with the staff and patients here as well as at his facility prior to discharge. The patient will be able to demonstrate at least a minimal capacity for emotional regulation prior to being transferred back to his prison facility. Thank you, Dr. Hoover, for this consult and the opportunity to participate with you in this patient's care. JOB# [id number] [facility]
[2017-09-18] MEDS: Levothyroxine 0.1 Mg Tab PO SCH ×2 (06:43→06:55)
[2017-09-18] MEDS: Potassium Chloride 10 mEq ER Tab PO SCH (08:55)
--- NOTE | 2017-09-18 14:16 | Internal Medicine Prog Note ---
Internal Medicine Subjective - Subjective Service Date: 09/18/17 Patient is:: awake Per staff patient has:: tolerating meds Internal Medicine Objective - Results Result Diagrams: 09/15/17 12:30 09/15/17 12:30 Recent Labs: Laboratory Last Values WBC 4.6 Th/cmm (4.8-10.8) L 09/15/17 12:30 RBC 4.36 Mil/cmm (4.30-5.70) 09/15/17 12:30 Hgb 13.6 gm/dL (12-16) 09/15/17 12:30 Hct 40.0 % (41.0-60) L 09/15/17 12:30 MCV 91.8 fl (80-99) 09/15/17 12:30 MCH 31.1 pg (26.0-30.0) H 09/15/17 12:30 MCHC Differential 33.9 pg (28.0-36.0) 09/15/17 12:30 RDW 12.6 % (11.5-20.0) 09/15/17 12:30 Plt Count 195 Th/cmm (150-400) 09/15/17 12:30 MPV 7.3 fl 09/15/17 12:30 Neutrophils % 64.8 % (40.0-80.0) 09/15/17 12:30 Lymphocytes % 26.1 % (20.0-50.0) 09/15/17 12:30 Monocytes % 8.8 % (2.0-10.0) 09/15/17 12:30 Eosinophils % 0.1 % (0.0-5.0) 09/15/17 12:30 Basophils % 0.2 % (0.0-2.0) 09/15/17 12:30 Sodium 133 mEq/L (136-145) L 09/15/17 12:30 Potassium 3.7 mEq/L (3.5-5.1) 09/15/17 12:30 Chloride 98 mEq/L (98-107) 09/15/17 12:30 Carbon Dioxide 28.6 mEq/L (21.0-31.0) 09/15/17 12:30 Anion Gap 10.1 (7.0-16.0) 09/15/17 12:30 BUN 16 mg/dL (7-25) 09/15/17 12:30 Creatinine 0.9 mg/dL (0.7-1.3) 09/15/17 12:30 Est GFR ( Amer) > 60.0 ml/min (>90) 09/15/17 12:30 Est GFR (Non-Af Amer) > 60.0 ml/min 09/15/17 12:30 BUN/Creatinine Ratio 17.8 09/15/17 12:30 Glucose 70 mg/dL (70-105) 09/15/17 12:30 Calcium 9.0 mg/dL (8.6-10.3) 09/15/17 12:30 Magnesium 2.1 mg/dL (1.9-2.7) 09/15/17 12:30 Total Bilirubin 0.4 mg/dL (0.3-1.0) 09/15/17 12:30 AST 33 U/L (13-39) 09/15/17 12:30 ALT 20 U/L (7-52) 09/15/17 12:30 Alkaline Phosphatase 60 U/L (34-104) 09/15/17 12:30 Total Protein 7.6 gm/dL (6.0-8.3) 09/15/17 12:30 Albumin 4.0 gm/dL (4.2-5.5) L 09/15/17 12:30 Globulin 3.6 gm/dL 09/15/17 12:30 Albumin/Globulin Ratio 1.1 (1.0-1.8) 09/15/17 12:30 TSH > 100.00 uIU/ml (0.34-5.60) H 09/15/17 12:30 Urine Source RANDOM 09/15/17 12:57 Urine Color YELLOW 09/15/17 12:57 Urine Clarity CLEAR (CLEAR) 09/15/17 12:57 Urine pH 7.0 (4.6 - 8.0) 09/15/17 12:57 Ur Specific [place] <= 1.005 (1.005-1.030) 09/15/17 12:57 Urine Protein NEGATIVE mg/dL (NEGATIVE) 09/15/17 12:57 Urine Glucose (UA) NEGATIVE mg/dL (NEGATIVE) 09/15/17 12:57 Urine Ketones NEGATIVE mg/dL (NEGATIVE) 09/15/17 12:57 Urine Blood NEGATIVE (NEGATIVE) 09/15/17 12:57 Urine Nitrate NEGATIVE (NEGATIVE) 09/15/17 12:57 Urine Bilirubin NEGATIVE (NEGATIVE) 09/15/17 12:57 Urine Urobilinogen 0.2 E.U./dL (0.2 - 1.0) 09/15/17 12:57 Ur Leukocyte Esterase NEGATIVE (NEGATIVE) 09/15/17 12:57 Urine RBC 0-2 /hpf (0-5) H 09/15/17 12:57 Urine WBC 0-2 /hpf (0-5) 09/15/17 12:57 Ur Epithelial Cells FEW /lpf (FEW) 09/15/17 12:57 Urine Bacteria OCCASIONAL /hpf (NONE SEEN) 09/15/17 12:57 - Physical Exam Vitals and I&O: Vital Signs Temp 97.2 F 09/18/17 05:56 Pulse 71 09/18/17 05:56 Resp 20 09/18/17 05:56 BP 120/78 09/18/17 05:56 Pulse Ox 97 09/18/17 05:56 Intake & Output 09/17/17 09/18/17 09/18/17 18:59 06:59 18:59 Intake Total 1200 720 Balance 1200 720 Intake: Oral 1200 720 Other: # Voids 4 2 # Bowel Movements 1 Stool Characteristics Formed Formed Active Medications: Current Medications Clonazepam (Klonopin) 0.5 mg PO TID PRN; Protocol PRN Reason: Anxiety Stop: 11/15/17 13:59 Last Admin: 09/18/17 08:54 Dose: 0.5 mg Docusate Sodium (Colace) 250 mg PO BID STEFFANIE Stop: 11/15/17 16:59 Last Admin: 09/18/17 08:54 Dose: 250 mg Ibuprofen (Motrin) 600 mg PO TID PRN PRN Reason: Pain (Moderate) Stop: 11/17/17 13:59 Levothyroxine Sodium (Synthroid) 0.25 mg PO QDAC STEFFANIE Stop: 11/17/17 13:08 Lorazepam (Ativan) 0.5 mg PO Q4HR PRN; Protocol PRN Reason: Anxiety Stop: 10/15/17 20:20 Last Admin: 09/18/17 11:16 Dose: 0.5 mg Potassium Chloride (Klor-Con) 10 meq PO DAILY STEFFANIE Stop: 11/15/17 08:59 Last Admin: 09/18/17 08:55 Dose: 10 meq Quetiapine Fumarate (Seroquel) 100 mg PO BID STEFFANIE PRN Reason: Protocol Stop: 11/15/17 08:59 Last Admin: 09/18/17 08:54 Dose: 100 mg Quetiapine Fumarate (Seroquel) 300 mg PO HS STEFFANIE PRN Reason: Protocol Stop: 11/15/17 20:59 Last Admin: 09/17/17 21:03 Dose: Not Given Zolpidem Tartrate (Ambien) 5 mg PO HS PRN PRN Reason: Insomnia Stop: 11/14/17 20:20 Last Admin: 09/17/17 21:05 Dose: 5 mg General: alert HEENT: NC/AT, PERRLA Neck: Supple Lungs: CTAB Cardiovascular: RRR, without murmur Abdomen: soft, non-tender, non-distended, positive bowel sound - Procedures Procedures: Procedures Procedure Code Date EMERGENCY DEPT VISIT 70214 06/27/11 INDIVID PSYCHOTHERAP NEC 94.39 10/26/05 OTHER GROUP THERAPY 94.44 09/24/14 RECREATIONAL THERAPY 93.81 03/06/12 Internal Medicine Assmt/Plan - Assessment Assessment: AGITATION COPD HTN ASTHMA DYSLIPIDEMIA HYPOTHYROIDISM - Plan Plan: dc lasix/potassium since patient has been refusing, i have explained to patient importance of taking patient still refuses continue current plan of care
--- NOTE | 2017-09-19 05:42 | Progress Notes ---
DATE: 09/18/2017 SUBJECTIVE: Staff was spoken to. The patient is interviewed. Mood is noted to be irritable. Affect is constricted. Insight and judgment are noted to be still impaired. Impulse control is noted to be poor. The patient is still testing the limits. The patient has no insight into his illness. Coping skills at this time are noted to be very poor. The patient has been getting easily irritable and angry. ASSESSMENT: The patient is still grossly psychotic. PLAN: To continue the patient with the supportive therapy and followup. The patient is currently on Seroquel, but he is fixated on Klonopin. JOB# [id number]
[2017-09-19] MEDS: Levothyroxine 0.125 Mg Tab PO SCH (07:12)
[2017-09-19] MEDS: Potassium Chloride 10 mEq ER Tab PO SCH (08:54)
--- NOTE | 2017-09-19 14:07 | Internal Medicine Prog Note ---
Internal Medicine Subjective - Subjective Service Date: 09/19/17 Patient is:: awake Per staff patient has:: tolerating meds Internal Medicine Objective - Results Result Diagrams: 09/15/17 12:30 09/15/17 12:30 Recent Labs: Laboratory Last Values WBC 4.6 Th/cmm (4.8-10.8) L 09/15/17 12:30 RBC 4.36 Mil/cmm (4.30-5.70) 09/15/17 12:30 Hgb 13.6 gm/dL (12-16) 09/15/17 12:30 Hct 40.0 % (41.0-60) L 09/15/17 12:30 MCV 91.8 fl (80-99) 09/15/17 12:30 MCH 31.1 pg (26.0-30.0) H 09/15/17 12:30 MCHC Differential 33.9 pg (28.0-36.0) 09/15/17 12:30 RDW 12.6 % (11.5-20.0) 09/15/17 12:30 Plt Count 195 Th/cmm (150-400) 09/15/17 12:30 MPV 7.3 fl 09/15/17 12:30 Neutrophils % 64.8 % (40.0-80.0) 09/15/17 12:30 Lymphocytes % 26.1 % (20.0-50.0) 09/15/17 12:30 Monocytes % 8.8 % (2.0-10.0) 09/15/17 12:30 Eosinophils % 0.1 % (0.0-5.0) 09/15/17 12:30 Basophils % 0.2 % (0.0-2.0) 09/15/17 12:30 Sodium 133 mEq/L (136-145) L 09/15/17 12:30 Potassium 3.7 mEq/L (3.5-5.1) 09/15/17 12:30 Chloride 98 mEq/L (98-107) 09/15/17 12:30 Carbon Dioxide 28.6 mEq/L (21.0-31.0) 09/15/17 12:30 Anion Gap 10.1 (7.0-16.0) 09/15/17 12:30 BUN 16 mg/dL (7-25) 09/15/17 12:30 Creatinine 0.9 mg/dL (0.7-1.3) 09/15/17 12:30 Est GFR ( Amer) > 60.0 ml/min (>90) 09/15/17 12:30 Est GFR (Non-Af Amer) > 60.0 ml/min 09/15/17 12:30 BUN/Creatinine Ratio 17.8 09/15/17 12:30 Glucose 70 mg/dL (70-105) 09/15/17 12:30 Calcium 9.0 mg/dL (8.6-10.3) 09/15/17 12:30 Magnesium 2.1 mg/dL (1.9-2.7) 09/15/17 12:30 Total Bilirubin 0.4 mg/dL (0.3-1.0) 09/15/17 12:30 AST 33 U/L (13-39) 09/15/17 12:30 ALT 20 U/L (7-52) 09/15/17 12:30 Alkaline Phosphatase 60 U/L (34-104) 09/15/17 12:30 Total Protein 7.6 gm/dL (6.0-8.3) 09/15/17 12:30 Albumin 4.0 gm/dL (4.2-5.5) L 09/15/17 12:30 Globulin 3.6 gm/dL 09/15/17 12:30 Albumin/Globulin Ratio 1.1 (1.0-1.8) 09/15/17 12:30 TSH > 100.00 uIU/ml (0.34-5.60) H 09/15/17 12:30 Urine Source RANDOM 09/15/17 12:57 Urine Color YELLOW 09/15/17 12:57 Urine Clarity CLEAR (CLEAR) 09/15/17 12:57 Urine pH 7.0 (4.6 - 8.0) 09/15/17 12:57 Ur Specific [place] <= 1.005 (1.005-1.030) 09/15/17 12:57 Urine Protein NEGATIVE mg/dL (NEGATIVE) 09/15/17 12:57 Urine Glucose (UA) NEGATIVE mg/dL (NEGATIVE) 09/15/17 12:57 Urine Ketones NEGATIVE mg/dL (NEGATIVE) 09/15/17 12:57 Urine Blood NEGATIVE (NEGATIVE) 09/15/17 12:57 Urine Nitrate NEGATIVE (NEGATIVE) 09/15/17 12:57 Urine Bilirubin NEGATIVE (NEGATIVE) 09/15/17 12:57 Urine Urobilinogen 0.2 E.U./dL (0.2 - 1.0) 09/15/17 12:57 Ur Leukocyte Esterase NEGATIVE (NEGATIVE) 09/15/17 12:57 Urine RBC 0-2 /hpf (0-5) H 09/15/17 12:57 Urine WBC 0-2 /hpf (0-5) 09/15/17 12:57 Ur Epithelial Cells FEW /lpf (FEW) 09/15/17 12:57 Urine Bacteria OCCASIONAL /hpf (NONE SEEN) 09/15/17 12:57 - Physical Exam Vitals and I&O: Vital Signs Temp 97.0 F 09/19/17 05:50 Pulse 61 09/19/17 05:50 Resp 18 09/19/17 05:50 BP 97/53 09/19/17 05:50 Pulse Ox 98 09/19/17 05:50 Intake & Output 09/18/17 09/19/17 09/19/17 18:59 06:59 18:59 Intake Total 2400 720 Balance 2400 720 Intake: Oral 2400 720 Other: # Voids 4 2 # Bowel Movements 1 Stool Characteristics Formed Formed Active Medications: Current Medications Clonazepam (Klonopin) 0.5 mg PO TID PRN; Protocol PRN Reason: Anxiety Stop: 11/15/17 13:59 Last Admin: 09/19/17 09:09 Dose: 0.5 mg Docusate Sodium (Colace) 250 mg PO BID STEFFANIE Stop: 11/15/17 16:59 Last Admin: 09/19/17 08:55 Dose: 250 mg Ibuprofen (Motrin) 600 mg PO TID PRN PRN Reason: Pain (Moderate) Stop: 11/17/17 13:59 Levothyroxine Sodium (Synthroid) 0.25 mg PO QDAC STEFFANIE Stop: 11/17/17 13:08 Last Admin: 09/19/17 07:12 Dose: Not Given Lorazepam (Ativan) 0.5 mg PO Q4HR PRN; Protocol PRN Reason: Anxiety Stop: 10/15/17 20:20 Last Admin: 09/19/17 11:03 Dose: 0.5 mg Potassium Chloride (Klor-Con) 10 meq PO DAILY STEFFANIE Stop: 11/15/17 08:59 Last Admin: 09/19/17 08:54 Dose: 10 meq Quetiapine Fumarate (Seroquel) 100 mg PO BID STEFFANIE PRN Reason: Protocol Stop: 11/15/17 08:59 Last Admin: 09/19/17 08:55 Dose: 100 mg Quetiapine Fumarate (Seroquel) 300 mg PO HS STEFFANIE PRN Reason: Protocol Stop: 11/15/17 20:59 Last Admin: 09/18/17 20:54 Dose: 300 mg Zolpidem Tartrate (Ambien) 5 mg PO HS PRN PRN Reason: Insomnia Stop: 11/14/17 20:20 Last Admin: 09/17/17 21:05 Dose: 5 mg General: alert HEENT: NC/AT, PERRLA Neck: Supple Lungs: CTAB Cardiovascular: RRR, without murmur Abdomen: soft, non-tender, non-distended, positive bowel sound - Procedures Procedures: Procedures Procedure Code Date EMERGENCY DEPT VISIT 67049 06/27/11 INDIVID PSYCHOTHERAP NEC 94.39 10/26/05 OTHER GROUP THERAPY 94.44 09/24/14 RECREATIONAL THERAPY 93.81 03/06/12 Internal Medicine Assmt/Plan - Assessment Assessment: AGITATION COPD HTN ASTHMA DYSLIPIDEMIA HYPOTHYROIDISM - Plan Plan: dc lasix/potassium since patient has been refusing, i have explained to patient importance of taking patient still refuses continue current plan of care
--- NOTE | 2017-09-19 18:44 | Progress Notes ---
DATE: 09/19/2017 SUBJECTIVE: Staff was spoken to. The patient is interviewed. Mood is noted to be irritable. Affect is constricted. Insight and judgment are noted to be still impaired. Impulse control is noted to be limited. Coping skills are noted to be limited. The patient is stating that he needs to be on Klonopin much more and the patient is stating that he has been on these medications outside and I should not change it. Coping skills at this time are noted to be very poor. Insight and judgment are also noted to be very poor. The patient has been getting easily agitated. The patient has been keeping on bargaining that he should not be on too much of the Seroquel. The patient is currently on 200 mg twice a day and 300 mg at bedtime. The patient's treating physician from outside, Dr. Rivera has been contacted and the case has been discussed with him. ASSESSMENT: The patient is still psychotic. PLAN: To continue the patient with the supportive therapy and current medications and followup. [facility]# [id number]
[2017-09-20] MEDS: Potassium Chloride 10 mEq ER Tab PO SCH ×2 (08:56→09:03)
[2017-09-20] MEDS: Levothyroxine 0.125 Mg Tab PO SCH (10:15)
--- NOTE | 2017-09-20 16:22 | Internal Medicine Prog Note ---
Internal Medicine Subjective - Subjective Service Date: 09/20/17 Patient is:: awake Per staff patient has:: tolerating meds Internal Medicine Objective - Results Result Diagrams: 09/15/17 12:30 09/15/17 12:30 Recent Labs: Laboratory Last Values WBC 4.6 Th/cmm (4.8-10.8) L 09/15/17 12:30 RBC 4.36 Mil/cmm (4.30-5.70) 09/15/17 12:30 Hgb 13.6 gm/dL (12-16) 09/15/17 12:30 Hct 40.0 % (41.0-60) L 09/15/17 12:30 MCV 91.8 fl (80-99) 09/15/17 12:30 MCH 31.1 pg (26.0-30.0) H 09/15/17 12:30 MCHC Differential 33.9 pg (28.0-36.0) 09/15/17 12:30 RDW 12.6 % (11.5-20.0) 09/15/17 12:30 Plt Count 195 Th/cmm (150-400) 09/15/17 12:30 MPV 7.3 fl 09/15/17 12:30 Neutrophils % 64.8 % (40.0-80.0) 09/15/17 12:30 Lymphocytes % 26.1 % (20.0-50.0) 09/15/17 12:30 Monocytes % 8.8 % (2.0-10.0) 09/15/17 12:30 Eosinophils % 0.1 % (0.0-5.0) 09/15/17 12:30 Basophils % 0.2 % (0.0-2.0) 09/15/17 12:30 Sodium 133 mEq/L (136-145) L 09/15/17 12:30 Potassium 3.7 mEq/L (3.5-5.1) 09/15/17 12:30 Chloride 98 mEq/L (98-107) 09/15/17 12:30 Carbon Dioxide 28.6 mEq/L (21.0-31.0) 09/15/17 12:30 Anion Gap 10.1 (7.0-16.0) 09/15/17 12:30 BUN 16 mg/dL (7-25) 09/15/17 12:30 Creatinine 0.9 mg/dL (0.7-1.3) 09/15/17 12:30 Est GFR ( Amer) > 60.0 ml/min (>90) 09/15/17 12:30 Est GFR (Non-Af Amer) > 60.0 ml/min 09/15/17 12:30 BUN/Creatinine Ratio 17.8 09/15/17 12:30 Glucose 70 mg/dL (70-105) 09/15/17 12:30 Calcium 9.0 mg/dL (8.6-10.3) 09/15/17 12:30 Magnesium 2.1 mg/dL (1.9-2.7) 09/15/17 12:30 Total Bilirubin 0.4 mg/dL (0.3-1.0) 09/15/17 12:30 AST 33 U/L (13-39) 09/15/17 12:30 ALT 20 U/L (7-52) 09/15/17 12:30 Alkaline Phosphatase 60 U/L (34-104) 09/15/17 12:30 Total Protein 7.6 gm/dL (6.0-8.3) 09/15/17 12:30 Albumin 4.0 gm/dL (4.2-5.5) L 09/15/17 12:30 Globulin 3.6 gm/dL 09/15/17 12:30 Albumin/Globulin Ratio 1.1 (1.0-1.8) 09/15/17 12:30 TSH > 100.00 uIU/ml (0.34-5.60) H 09/15/17 12:30 Urine Source RANDOM 09/15/17 12:57 Urine Color YELLOW 09/15/17 12:57 Urine Clarity CLEAR (CLEAR) 09/15/17 12:57 Urine pH 7.0 (4.6 - 8.0) 09/15/17 12:57 Ur Specific [place] <= 1.005 (1.005-1.030) 09/15/17 12:57 Urine Protein NEGATIVE mg/dL (NEGATIVE) 09/15/17 12:57 Urine Glucose (UA) NEGATIVE mg/dL (NEGATIVE) 09/15/17 12:57 Urine Ketones NEGATIVE mg/dL (NEGATIVE) 09/15/17 12:57 Urine Blood NEGATIVE (NEGATIVE) 09/15/17 12:57 Urine Nitrate NEGATIVE (NEGATIVE) 09/15/17 12:57 Urine Bilirubin NEGATIVE (NEGATIVE) 09/15/17 12:57 Urine Urobilinogen 0.2 E.U./dL (0.2 - 1.0) 09/15/17 12:57 Ur Leukocyte Esterase NEGATIVE (NEGATIVE) 09/15/17 12:57 Urine RBC 0-2 /hpf (0-5) H 09/15/17 12:57 Urine WBC 0-2 /hpf (0-5) 09/15/17 12:57 Ur Epithelial Cells FEW /lpf (FEW) 09/15/17 12:57 Urine Bacteria OCCASIONAL /hpf (NONE SEEN) 09/15/17 12:57 - Physical Exam Vitals and I&O: Vital Signs Temp 97.4 F 09/20/17 15:44 Pulse 79 09/20/17 15:44 Resp 20 09/20/17 15:44 BP 125/72 09/20/17 15:44 Pulse Ox 96 09/20/17 15:44 Intake & Output 09/19/17 09/20/17 09/20/17 18:59 06:59 18:59 Intake Total 1500 120 Balance 1500 120 Intake: Oral 1500 120 Other: # Voids 3 2 Stool Characteristics Formed Formed Active Medications: Current Medications Clonazepam (Klonopin) 0.5 mg PO TID PRN; Protocol PRN Reason: Anxiety Stop: 11/15/17 13:59 Last Admin: 09/20/17 10:16 Dose: 0.5 mg Docusate Sodium (Colace) 250 mg PO BID [facility] Stop: 11/15/17 16:59 Last Admin: 09/20/17 08:56 Dose: 250 mg Ibuprofen (Motrin) 600 mg PO TID PRN PRN Reason: Pain (Moderate) Stop: 11/17/17 13:59 Levothyroxine Sodium (Synthroid) 0.25 mg PO QDAC STEFFANIE Stop: 11/17/17 13:08 Last Admin: 09/20/17 10:15 Dose: 0.25 mg Lorazepam (Ativan) 0.5 mg PO Q4HR PRN; Protocol PRN Reason: Anxiety Stop: 10/15/17 20:20 Last Admin: 09/20/17 02:43 Dose: 0.5 mg Potassium Chloride (Klor-Con) 10 meq PO DAILY STEFFANIE Stop: 11/15/17 08:59 Last Admin: 09/20/17 09:03 Dose: Not Given Quetiapine Fumarate (Seroquel) 100 mg PO BID STEFFANIE PRN Reason: Protocol Stop: 11/15/17 08:59 Last Admin: 09/20/17 10:14 Dose: 100 mg Quetiapine Fumarate (Seroquel) 300 mg PO HS STEFFANIE PRN Reason: Protocol Stop: 11/15/17 20:59 Last Admin: 09/19/17 20:20 Dose: 300 mg Zolpidem Tartrate (Ambien) 5 mg PO HS PRN PRN Reason: Insomnia Stop: 11/14/17 20:20 Last Admin: 09/17/17 21:05 Dose: 5 mg General: alert HEENT: NC/AT, PERRLA Neck: Supple Lungs: CTAB Cardiovascular: RRR, without murmur Abdomen: soft, non-tender, non-distended, positive bowel sound - Procedures Procedures: Procedures Procedure Code Date EMERGENCY DEPT VISIT 45657 06/27/11 INDIVID PSYCHOTHERAP NEC 94.39 10/26/05 OTHER GROUP THERAPY 94.44 09/24/14 RECREATIONAL THERAPY 93.81 03/06/12 Internal Medicine Assmt/Plan - Assessment Assessment: AGITATION COPD HTN ASTHMA DYSLIPIDEMIA HYPOTHYROIDISM - Plan Plan: dc lasix/potassium since patient has been refusing, i have explained to patient importance of taking patient still refuses continue current plan of care
--- NOTE | 2017-09-21 01:21 | Progress Notes ---
DATE: 09/20/2017 SUBJECTIVE: Staff was spoken to. The patient is interviewed. Mood is noted to be irritable. Affect is constricted. Coping skills are noted to be still poor. Insight and judgment are also noted to be very much impaired. The patient has been insisting on having his way. The patient is demanding that he should be on a high dose of the Klonopin. The patient has been given the Klonopin 0.5 mg t.i.d. p.r.n. and the Seroquel is being given 500 mg a day and the patient's impulsivity is a concern at this time, the patient is being closely monitored. ASSESSMENT: The patient is still paranoid. PLAN: To continue the patient with the supportive therapy, I encouraged the patient to verbalize the concerns rather than to act out. JOB# [id number]
[2017-09-21] MEDS: Levothyroxine 0.125 Mg Tab PO SCH (06:44)
[2017-09-21] MEDS: Potassium Chloride 10 mEq ER Tab PO SCH ×2 (08:06→08:13)
--- NOTE | 2017-09-21 14:07 | Internal Medicine Prog Note ---
Internal Medicine Subjective - Subjective Patient seen and examined:: with staff, chart reviewed, other (seen earlier this morning, says taking syntroid now) Patient is:: awake, verbal, interactive, ambulating Per staff patient has:: no adverse event, no episodes of fall, eating well, tolerating meds Internal Medicine Objective - Results Result Diagrams: 09/15/17 12:30 09/15/17 12:30 Recent Labs: Laboratory Last Values WBC 4.6 Th/cmm (4.8-10.8) L 09/15/17 12:30 RBC 4.36 Mil/cmm (4.30-5.70) 09/15/17 12:30 Hgb 13.6 gm/dL (12-16) 09/15/17 12:30 Hct 40.0 % (41.0-60) L 09/15/17 12:30 MCV 91.8 fl (80-99) 09/15/17 12:30 MCH 31.1 pg (26.0-30.0) H 09/15/17 12:30 MCHC Differential 33.9 pg (28.0-36.0) 09/15/17 12:30 RDW 12.6 % (11.5-20.0) 09/15/17 12:30 Plt Count 195 Th/cmm (150-400) 09/15/17 12:30 MPV 7.3 fl 09/15/17 12:30 Neutrophils % 64.8 % (40.0-80.0) 09/15/17 12:30 Lymphocytes % 26.1 % (20.0-50.0) 09/15/17 12:30 Monocytes % 8.8 % (2.0-10.0) 09/15/17 12:30 Eosinophils % 0.1 % (0.0-5.0) 09/15/17 12:30 Basophils % 0.2 % (0.0-2.0) 09/15/17 12:30 Sodium 133 mEq/L (136-145) L 09/15/17 12:30 Potassium 3.7 mEq/L (3.5-5.1) 09/15/17 12:30 Chloride 98 mEq/L (98-107) 09/15/17 12:30 Carbon Dioxide 28.6 mEq/L (21.0-31.0) 09/15/17 12:30 Anion Gap 10.1 (7.0-16.0) 09/15/17 12:30 BUN 16 mg/dL (7-25) 09/15/17 12:30 Creatinine 0.9 mg/dL (0.7-1.3) 09/15/17 12:30 Est GFR ( Amer) > 60.0 ml/min (>90) 09/15/17 12:30 Est GFR (Non-Af Amer) > 60.0 ml/min 09/15/17 12:30 BUN/Creatinine Ratio 17.8 09/15/17 12:30 Glucose 70 mg/dL (70-105) 09/15/17 12:30 Calcium 9.0 mg/dL (8.6-10.3) 09/15/17 12:30 Magnesium 2.1 mg/dL (1.9-2.7) 09/15/17 12:30 Total Bilirubin 0.4 mg/dL (0.3-1.0) 09/15/17 12:30 AST 33 U/L (13-39) 09/15/17 12:30 ALT 20 U/L (7-52) 09/15/17 12:30 Alkaline Phosphatase 60 U/L (34-104) 09/15/17 12:30 Total Protein 7.6 gm/dL (6.0-8.3) 09/15/17 12:30 Albumin 4.0 gm/dL (4.2-5.5) L 09/15/17 12:30 Globulin 3.6 gm/dL 09/15/17 12:30 Albumin/Globulin Ratio 1.1 (1.0-1.8) 09/15/17 12:30 TSH > 100.00 uIU/ml (0.34-5.60) H 09/15/17 12:30 Urine Source RANDOM 09/15/17 12:57 Urine Color YELLOW 09/15/17 12:57 Urine Clarity CLEAR (CLEAR) 09/15/17 12:57 Urine pH 7.0 (4.6 - 8.0) 09/15/17 12:57 Ur Specific [place] <= 1.005 (1.005-1.030) 09/15/17 12:57 Urine Protein NEGATIVE mg/dL (NEGATIVE) 09/15/17 12:57 Urine Glucose (UA) NEGATIVE mg/dL (NEGATIVE) 09/15/17 12:57 Urine Ketones NEGATIVE mg/dL (NEGATIVE) 09/15/17 12:57 Urine Blood NEGATIVE (NEGATIVE) 09/15/17 12:57 Urine Nitrate NEGATIVE (NEGATIVE) 09/15/17 12:57 Urine Bilirubin NEGATIVE (NEGATIVE) 09/15/17 12:57 Urine Urobilinogen 0.2 E.U./dL (0.2 - 1.0) 09/15/17 12:57 Ur Leukocyte Esterase NEGATIVE (NEGATIVE) 09/15/17 12:57 Urine RBC 0-2 /hpf (0-5) H 09/15/17 12:57 Urine WBC 0-2 /hpf (0-5) 09/15/17 12:57 Ur Epithelial Cells FEW /lpf (FEW) 09/15/17 12:57 Urine Bacteria OCCASIONAL /hpf (NONE SEEN) 09/15/17 12:57 - Physical Exam Vitals and I&O: Vital Signs Temp 97.6 F 09/21/17 10:54 Pulse 79 09/21/17 10:54 Resp 21 09/21/17 10:54 BP 124/74 09/21/17 10:54 Pulse Ox 98 09/21/17 10:54 Intake & Output 09/20/17 09/21/17 09/21/17 18:59 06:59 18:59 Intake Total 1200 120 Balance 1200 120 Intake: Oral 1200 120 Other: # Voids 3 3 # Bowel Movements 1 Stool Characteristics Formed Formed General: alert HEENT: NC/AT, PERRLA Neck: Supple Lungs: CTAB Cardiovascular: RRR, without murmur Abdomen: soft, non-tender, non-distended, positive bowel sound Extremities: excoriation Neurological: no change - Procedures Procedures: Procedures Procedure Code Date EMERGENCY DEPT VISIT 64260 06/27/11 INDIVID PSYCHOTHERAP NEC 94.39 10/26/05 OTHER GROUP THERAPY 94.44 09/24/14 RECREATIONAL THERAPY 93.81 03/06/12 Internal Medicine Assmt/Plan - Assessment Assessment: obesity AGITATION COPD HTN ASTHMA DYSLIPIDEMIA HYPOTHYROIDISM - Plan Plan: - Plan Plan: cont on synthroid, increase slightly need to watch diet, need to lose weight need to take meds routinely continue current plan of care
--- NOTE | 2017-09-21 22:37 | Discharge Summary ---
DATE OF DISCHARGE: 09/21/2017 IDENTIFYING DATA: The patient is a 62-year-old male, resident of [facility]. JUSTIFICATION OF HOSPITALIZATION: The patient is admitted on a voluntary basis in view of his acute mood swings and agitation and aggressive behavior. CHIEF COMPLAINT: "I need to see my doctor right away." DIAGNOSES: At the time of admission: AXIS I: Schizoaffective disorder. AXIS II: None. AXIS III: As per Dr. Ng. HISTORY OF PRESENT ILLNESS: Please refer to 09/15/2017 dictation done by me. Physical examination at the time of admission was done by Dr. Ng and is noted to be significant for hypertension, asthma, COPD, dyslipidemia and hypothyroidism. HOSPITAL COURSE AND RESPONSE TO TREATMENT: The patient has been observed on the inpatient unit, provided with supportive psychotherapy. The patient has been continued on Klonopin 0.5 mg 1-3 times a day, quetiapine was given 100 mg twice a day and 300 mg at bedtime and the patient has been encouraged to participate in the groups and verbalize the concerns. The patient's impulsivity came under control and no major side effects were noted and the patient was discharged on 09/21/2017 with recommendation that he is going to be seeking treatment on an outpatient basis. MENTAL STATUS EXAMINATION: At the time of the discharge, the patient mood is noted to be less irritable. Affect is appropriate. Not suicidal or homicidal. Coping skills are noted to be fair. Sleep and appetite are also noted to be fair. No side effects to the medications are noted at the time of the discharge, the patient has been able to verbalize the concerns rather than to act out. ASSESSMENT: The patient is stabilizing. Plan to discharge the patient today for followup on an outpatient basis. JOB# [id number]
== END 2017-09-21 13:20 | DRG 885 ==
LOC: ER 11:30 → GERO 14:56
DX: F25.9 Schizoaffective disorder, unspecified (principal); I10 Essential (primary) hypertension; J44.9 Chronic obstructive pulmonary disease, unspecified; E78.5 Hyperlipidemia, unspecified; E03.9 Hypothyroidism, unspecified; F17.210 Nicotine dependence, cigarettes, uncomplicated; F41.9 Anxiety disorder, unspecified; F29 Unspecified psychosis not due to a substance or known physiological condition; E66.9 Obesity, unspecified; Z68.28 Body mass index [BMI] 28.0-28.9, adult; Z88.0 Allergy status to penicillin; Z90.89 Acquired absence of other organs
CPT/HCPCS: 36415-UA; 71045-TC; 80053-TC; 81001-TC; 83735-TC; 84443-TC; 85025-TC; 90899; 93005; G0410; Z7610